=== PATIENT | female | born 1985 | race Caucasian/White ===

== ENCOUNTER 2016-07-14 12:20 | Emergency (ER) | payer OTHER ==
[~2016-07-14] VITALS: Ht 180.3 cm; Wt 190.0 kg
[~2016-07-14 12:20] MED LIST: CHOL100010 PO; HYDR-5688 PO; LEVO125T5 PO; LEVO150T9 PO; ONDA4TAB46 PO
[2016-07-14 12:26] VITALS: Ht 180.3 cm; Wt 190.0 kg
[2016-07-14 13:33] LABS: BASO % 0.1 %; BASO ABS # 0.01 K/uL (0-0.2); COMPLETE YES; EOS % 1.6 %; HEMATOCRIT 41.3 % (37-47); IG% 0.4 %; LYMPH % 26.7 %; LYMPH ABS # 1.83 K/uL (1.2-3.4); MEAN CELL VOLUME 85.3 fL (80-100); MEAN CORPUSCULAR HEMOGLOBIN 28.9 pg (25-34); MEAN CORPUSCULAR HGB CONC 33.9 g/dl (32-36); MEAN PLATELET VOLUME 9.8 fL (7.4-10.4); NEUT % 63.2 %; PLATELET COUNT 239 K/uL (130-400); RED BLOOD COUNT 4.84 M/uL (4.2-5.4); WHITE BLOOD COUNT 6.85 K/uL (4.8-10.8)
--- NOTE | 2016-07-14 13:35 | DIAGNOSTIC IMAGING REPORT ---
SINGLE VIEW CHEST CLINICAL HISTORY: Atypical chest pain. Chest heaviness. Dizziness. Headache. FINDINGS: An AP, portable, upright chest radiograph is compared to study dated 04/13/2016 and correlated with chest CT dated 04/14/2016. The examination is degraded by portable technique, large body habitus, and patient rotation. The cardiomediastinal silhouette is unremarkable. The lungs and pleural spaces are clear. No pneumothorax is seen. The bony thorax is grossly intact. IMPRESSION: No active disease in the chest. Electronically signed by: Warren Pro M.D. 07/14/2016 1:34 PM Dictated Date/Time: 07/14/2016 1:33 PM
[2016-07-14 13:42] LABS: PROTHROMBIN TIME (PATIENT) 10.4 SECONDS (9.0-12.0)
[2016-07-14 13:54] LABS: URINE APPEARANCE CLOUDY (CLEAR); URINE BILIRUBIN NEG (NEG); URINE COLOR DK YELLOW; URINE EPITHELIAL CELL AUTO >30 /lpf (0-5); URINE NITRITE POS (NEG); URINE PH 5.5 (4.5-7.5); URINE SPECIFIC GRAVITY 1.029 (1.000-1.030); UROBILINOGEN NEG (NEG); ZZUR CULT IF INDIC CLEAN CATCH YES
[2016-07-14 13:55] LABS: ALT/SGPT 22 U/L (12-78); BLOOD UREA NITROGEN 12 mg/dl (7-18); BUN/CREATININE RATIO 11.6 (10-20); CALCIUM 8.9 mg/dl (8.5-10.1); CARBON DIOXIDE 27 mmol/L (21-32); CHLORIDE 107 mmol/L (98-107); GLUCOSE 106 mg/dl (70-99); POTASSIUM 3.9 mmol/L (3.5-5.1); SODIUM 141 mmol/L (136-145)
[2016-07-14 14:05] LABS: ALB/GLOB RATIO 0.9 (0.9-2); ALKALINE PHOSPHATASE 82 U/L (45-117); AST/SGOT 15 U/L (15-37)
[2016-07-14 14:07] LABS: MANUAL MICROSCOPIC REQUIRED? NO; REVIEW REQ? NO
--- NOTE | 2016-07-14 14:07 | DIAGNOSTIC IMAGING REPORT ---
CT SCAN OF THE BRAIN WITHOUT IV CONTRAST CLINICAL HISTORY: Headache. Hypertension. COMPARISON STUDY: CT of the brain dated 02/01/2011. TECHNIQUE: Unenhanced axial CT scan of the brain is performed from the vertex to the skull base. Automated dose control exposure was utilized. CT DOSE: 906.34 mGycm FINDINGS: Brain parenchyma: The brain parenchyma is normal in appearance. There is no hemorrhage, mass effect, or evidence of acute territorial ischemia by CT criteria. Arteaga-white matter is preserved. No extra-axial fluid collection is seen. Ventricles, sulci, cisterns: Normal in configuration. Intracranial vasculature: The visualized intracranial vasculature at the skull base is normal in appearance. Calvarium: Unremarkable. Sinuses and mastoids: The visualized paranasal sinuses are clear. The mastoid air cells are well pneumatized. Orbits: The bony orbits are grossly intact. IMPRESSION: No acute intracranial abnormality. Electronically signed by: Warren Pro M.D. 07/14/2016 2:06 PM Dictated Date/Time: 07/14/2016 2:05 PM
[2016-07-14] MEDS ORDERED: KETOROLAC TROMETHAMINE 30 MG/ML VIAL IV STA (14:25)
[2016-07-14] MEDS ORDERED: LEVO150T PO (14:28)
[2016-07-14] MEDS ORDERED: LEVO300T2 PO (14:28)
[2016-07-14] MEDS ORDERED: NITR-5 PO (15:12)
--- NOTE | 2016-07-14 15:13 | EMERGENCY ROOM VISIT NOTE ---
History First contact with patient: 12:47 Chief Complaint: HYPERTENSION Stated Complaint: HYPERTENSION, CHEST HEAVY, MACIAS, DIZZY, JITTERY History of Present Illness The patient is a 31 year old female who presents to the Emergency Room with complaints of hypertension, headache and chest heaviness. The patient reports that she woke up this morning with a headache. She states that the headache is located in the left frontal region and is not the worst headache of her life. She does have a history of migraines but states this headache is not as severe as her migraines typically are. The patient states that approximately one hour later, she developed a nosebleed which lasted for approximately 1 minute. She states that her vision feels "off" and she feels jittery. She also reports some chest heaviness. She took her blood pressure at home and had readings of 135/115 and 150/115. The patient reports that she called her primary care provider due to the chest heaviness and they sent her here. The patient currently complains of a headache which she rates a 7/10. She did not take any medication at home for the pain. The patient has a history of migraines, Crohn' s, gastroparesis and a cholecystectomy. She denies any history of hypertension. She denies any chest pain, shortness of breath, neck pain, syncopal episodes or palpitations. She denies abdominal pain, nausea, vomiting or urinary symptoms. Review of Systems A complete 10-point Review of Systems was discussed with the patient, with pertinent positives and negatives listed in the History of Present Illness. All remaining Review of Systems questions can be considered negative unless otherwise specified. Past Medical/Surgical History Medical Problems: (1) Abdominal pain (2) Abdominal pain (3) Acute bronchitis (4) ASTHMA, UNSPECIFIED (5) Bronchitis (6) Constipation (7) Contusion of foot (8) Contusion of foot (9) Crohn's colitis (10) ESOPHAGEAL REFLUX (11) Exacerbation of Crohn's disease (12) Exacerbation of Crohn's disease (13) History of Crohn's disease (14) MIGRAINE UNSPECIFIED W/O INTRACT MGRN W/O STATUS MIGRAINOSUS (15) MORBID OBESITY (16) Small bowel obstruction (17) THYROID DYSFUNC-DELIVER (18) Vomiting Surgical Problems: (1) Hx of appendectomy (2) Hx of cholecystectomy (3) Hx of ileum resection Family History Cancer Diabetes mellitus FHx: seizures Heart disease Hypertension Social History Smoking Status: Never Smoker Alcohol Use: none Drug Use: none Marital Status: Housing Status: lives with family Occupation Status: unemployed Current/Historical Medications Scheduled Cholecalciferol (Vitamin D), 5,000 UNITS PO QAM Cyanocobalamin (Vitamin B-12 1000 Mcg), 1,000 MCG IM 2XWK Epinephrine (Epipen 2-Ruben), 1 INJ PRN UD Levothyroxine Sodium (Synthroid), 150 MCG PO 5XWK Levothyroxine Sodium (Synthroid), 300 MCG PO 2XWK Nitrofurantoin Monohyd Macrocr (Macrobid), 100 MG PO BID Scheduled PRN Dicyclomine Hcl (Dicyclomine Hcl), 20 MG PO BID PRN for abd pain Fluticasone Propionate (Fluticasone Propionate), 2 SPRAYS ALEJANDRA DAILY PRN for Allergies Symptoms Hydrocodone/Acetaminophen 5MG/325MG (Madison 5MG/325MG), 1 TABLET PO Q6 PRN for Pain Ondansetron Hcl (Zofran), 4 MG PO Q8 PRN for Nausea Allergies Coded Allergies: BEE STING (Verified Allergy, Intermediate, SWELLING AND SHORTNESS OF BREATH, 10/23/15) Shellfish (Verified Allergy, Intermediate, HIVES, ITCHING, SLIGH DIFFICULTY BREATHING, 10/23/15) SHRIMP AND CRAB White Fish (Verified Allergy, Intermediate, HIVES, ITCHING, SLIGHT DIFFICULTY BREATHING, 10/23/15) Fish Oil (Verified Allergy, Mild, HIVES, VOMITING, 10/23/15) Adalimumab (Verified Allergy, Unknown, SWELLING AT INJECTION SITE, 10/23/15) Humira Kit Infliximab (Verified Allergy, Unknown, migraines,itchiness, hair fallou, ) Physical Exam Vital Signs Date Time Temp Pulse Resp B/P Pulse Ox O2 Delivery O2 Flow Rate FiO2 07/14/16 15:53 36.6 85 23 131/91 96 07/14/16 15:52 85 23 131/91 96 Room Air 07/14/16 14:22 85 23 134/97 96 Room Air 07/14/16 13:48 82 07/14/16 13:44 82 147/82 07/14/16 12:26 36.6 98 18 180/127 94 Room Air Physical Exam VITALS: Vitals are noted on the nurse's note and reviewed by myself. Vital signs stable. GENERAL: This is a 31-year-old female, in no acute distress, nondiaphoretic, well-developed well-nourished. SKIN: The skin was without rashes. HEAD: Normocephalic atraumatic. EARS: External auditory canals clear, tympanic membranes pearly arteaga without erythema or effusion bilaterally. EYES: Pupils equal round and reactive to light and accommodation. Conjunctivae without injection, sclerae without icterus. Extraocular movements intact. MOUTH: Mucous membranes moist. Tonsils are not enlarged. Pharynx without erythema or exudate. NECK: Supple without nuchal rigidity. No lymphadenopathy. HEART: Regular rate and rhythm without murmurs gallops or rubs. LUNGS: Clear to auscultation bilaterally without wheezes, rales or rhonchi. ABDOMEN: Positive bowel sounds x 4. Soft, nontender to palpation. NEURO: Patient was alert and oriented to person place and time. Normal sensation to light and sharp touch. Medical Decision & Procedures ER Provider Diagnostic Interpretation: SINGLE VIEW CHEST FINDINGS: An AP, portable, upright chest radiograph is compared to study dated 04/13/2016 and correlated with chest CT dated 04/14/2016. The examination is degraded by portable technique, large body habitus, and patient rotation. The cardiomediastinal silhouette is unremarkable. The lungs and pleural spaces are clear. No pneumothorax is seen. The bony thorax is grossly intact. IMPRESSION: No active disease in the chest. CT SCAN OF THE BRAIN WITHOUT IV CONTRAST FINDINGS: Brain parenchyma: The brain parenchyma is normal in appearance. There is no hemorrhage, mass effect, or evidence of acute territorial ischemia by CT criteria. Arteaga-white matter is preserved. No extra-axial fluid collection is seen. Ventricles, sulci, cisterns: Normal in configuration. Intracranial vasculature: The visualized intracranial vasculature at the skull base is normal in appearance. Calvarium: Unremarkable. Sinuses and mastoids: The visualized paranasal sinuses are clear. The mastoid air cells are well pneumatized. Orbits: The bony orbits are grossly intact. IMPRESSION: No acute intracranial abnormality. Laboratory Results 07/14/16 13:20 Red Blood Count 4.84, Mean Corpuscular Volume 85.3, Mean Corpuscular Hemoglobin 28.9, Mean Corpuscular Hemoglobin Concent 33.9, Mean Platelet Volume 9.8, Neutrophils (%) (Auto) 63.2, Lymphocytes (%) (Auto) 26.7, Monocytes (%) (Auto) 8.0, Eosinophils (%) (Auto) 1.6, Basophils (%) (Auto) 0.1, Neutrophils # (Auto) 4.32, Lymphocytes # (Auto) 1.83, Monocytes # (Auto) 0.55, Eosinophils # (Auto) 0.11, Basophils # (Auto) 0.01 07/14/16 13:20 Test 07/14/16 13:20 07/14/16 13:25 White Blood Count 6.85 K/uL (4.8-10.8) Red Blood Count 4.84 M/uL (4.2-5.4) Hemoglobin 14.0 g/dL (12.0-16.0) Hematocrit 41.3 % (37-47) Mean Corpuscular Volume 85.3 fL (80-100) Mean Corpuscular Hemoglobin 28.9 pg (25-34) Mean Corpuscular Hemoglobin Concent 33.9 g/dl (32-36) Platelet Count 239 K/uL (130-400) Mean Platelet Volume 9.8 fL (7.4-10.4) Neutrophils (%) (Auto) 63.2 % Lymphocytes (%) (Auto) 26.7 % Monocytes (%) (Auto) 8.0 % Eosinophils (%) (Auto) 1.6 % Basophils (%) (Auto) 0.1 % Neutrophils # (Auto) 4.32 K/uL (1.4-6.5) Lymphocytes # (Auto) 1.83 K/uL (1.2-3.4) Monocytes # (Auto) 0.55 K/uL (0.11-0.59) Eosinophils # (Auto) 0.11 K/uL (0-0.5) Basophils # (Auto) 0.01 K/uL (0-0.2) RDW Standard Deviation 40.7 fL (36.4-46.3) RDW Coefficient of Variation 13.2 % (11.5-14.5) Immature Granulocyte % (Auto) 0.4 % Immature Granulocyte # (Auto) 0.03 K/uL (0.00-0.02) Prothrombin Time 10.4 SECONDS (9.0-12.0) Prothromb Time International Ratio 1.0 (0.9-1.1) Activated Partial Thromboplast Time 25.9 SECONDS (21.0-31.0) Partial Thromboplastin Ratio 1.0 Anion Gap 7.0 mmol/L (3-11) Est Creatinine Clear Calc Drug Dose 149.6 ml/min Estimated GFR () 85.7 Estimated GFR (Non- 74.0 BUN/Creatinine Ratio 11.6 (10-20) Calcium Level 8.9 mg/dl (8.5-10.1) Total Bilirubin 0.4 mg/dl (0.2-1) Aspartate Amino Transf (AST/SGOT) 15 U/L (15-37) Alanine Aminotransferase (ALT/SGPT) 22 U/L (12-78) Alkaline Phosphatase 82 U/L (45-117) Troponin I < 0.015 ng/ml (0-0.045) Total Protein 7.0 gm/dl (6.4-8.2) Albumin 3.4 gm/dl (3.4-5.0) Globulin 3.6 gm/dl (2.5-4.0) Albumin/Globulin Ratio 0.9 (0.9-2) Thyroid Stimulating Hormone (TSH) 10.100 uIu/ml (0.300-4.500) Urine Color DK YELLOW Urine Appearance CLOUDY (CLEAR) Urine pH 5.5 (4.5-7.5) Urine Specific Rogers 1.029 (1.000-1.030) Urine Protein TRACE (NEG) Urine Glucose (UA) NEG (NEG) Urine Ketones TRACE (NEG) Urine Occult Blood NEG (NEG) Urine Nitrite POS (NEG) Urine Bilirubin NEG (NEG) Urine Urobilinogen NEG (NEG) Urine Leukocyte Esterase MODERATE (NEG) Urine WBC (Auto) >30 /hpf (0-5) Urine RBC (Auto) 10-30 /hpf (0-4) Urine Hyaline Casts (Auto) 10-30 /lpf (0-5) Urine Epithelial Cells (Auto) >30 /lpf (0-5) Urine Bacteria (Auto) 4+ (NEG) Urine Test NEG (NEG) Medications Administered Medications (Trade) Dose Ordered Sig/Jarek Route Start Time Stop Time Status Last Admin Dose Admin Ketorolac Tromethamine (Toradol Inj) 30 mg NOW STAT IV 07/14/16 14:25 07/14/16 14:27 DC 07/14/16 14:45 30 MG ECG Indication: other Rate (beats per minute): 87 Rhythm: normal sinus Findings: no acute ischemic change, no ectopy Change: no significant change Medical Decision Differential diagnosis includes hypertensive urgency, hypertensive emergency, malignant hypertension, among others. The patient was evaluated as above. Labs were drawn and IV access was obtained. Imaging studies were performed and read by radiology as above. The patient was medicated with 30 mg Toradol IV for her headache. The patient was reassessed multiple times during their stay in the emergency department and remained in stable condition. The patient is a 31-year-old female who presents today for evaluation of hypertension. The patient does complain of a headache which is not the worst headache of her life. Labs revealed no leukocytosis, anemia or concerning electrolyte abnormalities. Troponin was not elevated. TSH was found to be moderately elevated. The patient has a history of hypothyroidism he was instructed to follow-up with her primary care provider for possible adjustment of her levothyroxine. CT of the head was unremarkable. Chest x-ray was unremarkable. EKG showed a normal sinus rhythm without evidence of ischemia or ectopy. The patient's hypertension resolved during her stay without any antihypertensive medications. I feel her hypertension may have been secondary to anxiety or pain. I did recommend that she follow-up closely with her primary care provider for close recheck of her blood pressure. Urinalysis was suggestive of infection, with 4+ bacteria, white blood cells, nitrites and leukocyte esterase. The patient denies significant urinary symptoms but does state that she has had multiple urinary tract infections in the past. Patient has had a previous urine culture which grew out pansensitive Escherichia coli. Urine was negative. The patient will be placed on Macrobid pending the urine culture results. She was instructed to return to the emergency department with any worsening of her current condition or new/ concerning symptoms. Based on the patient's presentation, lab results, and imaging studies, I feel the patient is stable for outpatient treatment. The patient's case was reviewed with Dr. Camp, ED attending physician, who agreed with my assessment and treatment plan. Discharge instructions were reviewed with the patient. The patient verbalized understanding of my assessment and treatment plan and was discharged home in good condition. Impression Primary Impression: Urinary tract infection Departure Information Dispostion Home / Self-Care Condition GOOD Prescriptions Nitrofurantoin Monohyd Macrocr (Macrobid) 100 Mg Cap 100 MG PO BID for 5 Days, #10 CAP Prov: Amanda Guajardo ., DESTINY 07/14/16 Referrals Lito Arroyo D.O.[facility]. (PCP) Patient Instructions My [facility] Additional Instructions You were evaluated today for headache and hypertension. Your blood pressure is now in a normal level, but you'll need to have this reevaluated by your primary care provider. You should also has your thyroid level rechecked, as your TSH was elevated today. Your urine did show evidence of infection. You were prescribed Macrobid to be taken twice daily for 5 days. This is an antibiotic. All antibiotics have the potential to cause diarrhea. Stop this medication and contact a medical provider if you were to develop any significant adverse side effects including: wheezing, shortness of breath, passing out, vomiting, or a diffuse rash. Always take antibiotics as directed and COMPLETE the ENTIRE course regardless of the improvement of your symptoms. For pain control, you can use the following [id number] medicines (if >12 yo): - Regular strength (325mg/tab) Tylenol (acetaminophen) 2 tabs every 4-6 hours as needed. Do not exceed 12 tablets in a 24 hour period. Avoid taking more than 4 grams (4000 mg) of Tylenol per day. This includes any other sources of acetaminophen you may take on a regular basis. - Regular strength (200 mg/tab) Advil (ibuprofen) 1-2 tabs every 4-6 hours as needed. Do not exceed a dose of 3200 mg per day. Rest and drink plenty of fluids. Return to the emergency room with worsening headache, fevers, neck pain, chest pain or any other new/concerning symptoms.
[2016-07-14 15:53] VITALS: BP 131/91; PULSE 85; TEMP 36.6; O2SAT 96
[2016-12-01] MEDS ORDERED: DICY20TA10 PO (10:07)
[2016-12-01] MEDS ORDERED: CYAN10004 PO (11:35)
== END 2016-07-14 15:54 | disposition home or self-care (01) ==
LOC: C.EDB 12:22
DX: N39.0 Urinary tract infection, site not specified (principal); E03.9 Hypothyroidism, unspecified; J45.909 Unspecified asthma, uncomplicated; K50.90 Crohn's disease, unspecified, without complications; K21.9 Gastro-esophageal reflux disease without esophagitis; G43.909 Migraine, unspecified, not intractable, without status migrainosus; E66.01 Morbid (severe) obesity due to excess calories; Z80.9 Family history of malignant neoplasm, unspecified; Z83.3 Family history of diabetes mellitus; Z82.49 Family history of ischemic heart disease and other diseases of the circulatory system; Z79.899 Other long term (current) drug therapy

== ENCOUNTER 2016-07-26 13:34 | Emergency (ER) | payer OTHER ==
[~2016-07-26] VITALS: Ht 180.3 cm; Wt 168.1 kg
[~2016-07-26 13:34] MED LIST changes: -CHOL100010 PO; -LEVO125T5 PO; +LEVO150T PO; -LEVO150T9 PO; +LEVO300T2 PO
[2016-07-26 13:40] VITALS: TEMP 36.8; Ht 180.3 cm; Wt 168.1 kg
[2016-07-26] MEDS ORDERED: ONDANSETRON INJ 2 MG/ML 2 ML VIAL IV STA (14:09)
[2016-07-26] MEDS ORDERED: HYDROmorphone INJ 1 MG/ML SYR IV STA (14:09)
[2016-07-26] MEDS ORDERED: SODIUM CHLORIDE 0.9% 1000ML 1,000 ML IV STA (14:09)
[2016-07-26 14:18] LABS: BASO % 0.3 %; BASO ABS # 0.03 K/uL (0-0.2); COMPLETE YES; EOS % 2.3 %; HEMATOCRIT 43.5 % (37-47); IG% 0.3 %; LYMPH % 32.6 %; LYMPH ABS # 2.86 K/uL (1.2-3.4); MEAN CELL VOLUME 84.1 fL (80-100); MEAN CORPUSCULAR HEMOGLOBIN 29.2 pg (25-34); MEAN CORPUSCULAR HGB CONC 34.7 g/dl (32-36); MEAN PLATELET VOLUME 9.6 fL (7.4-10.4); MONO % 7.6 %; NEUT % 56.9 %; PLATELET COUNT 287 K/uL (130-400); RED BLOOD COUNT 5.17 M/uL (4.2-5.4); WHITE BLOOD COUNT 8.78 K/uL (4.8-10.8)
[2016-07-26 14:32] LABS: BUN/CREATININE RATIO 11.9 (10-20); CALCIUM 8.6 mg/dl (8.5-10.1); POTASSIUM 3.7 mmol/L (3.5-5.1)
[2016-07-26 14:33] LABS: URINE APPEARANCE TURBID (CLEAR); URINE COLOR DK YELLOW; URINE EPITHELIAL CELL AUTO >30 /lpf (0-5); URINE NITRITE POS (NEG); URINE PH 5.5 (4.5-7.5); URINE SPECIFIC GRAVITY 1.026 (1.000-1.030); UROBILINOGEN NEG (NEG); ZZUR CULT IF INDIC CLEAN CATCH YES
[2016-07-26 14:35] LABS: ALB/GLOB RATIO 0.9 (0.9-2)
[2016-07-26 14:40] LABS: MANUAL MICROSCOPIC REQUIRED? NO; REVIEW REQ? YES
[2016-07-26] MEDS ORDERED: OPTIRAY 320 IV PRN (14:45)
[2016-07-26 14:49] LABS: URINE BILIRUBIN NEG (NEG)
--- NOTE | 2016-07-26 15:09 | DIAGNOSTIC IMAGING REPORT ---
CT SCAN OF THE ABDOMEN AND PELVIS WITH IV CONTRAST CLINICAL HISTORY: Right lower quadrant abdominal pain. Reported history of Crohn's disease. COMPARISON STUDY: Abdominal CT dated 12/31/2014. TECHNIQUE: Following the IV administration of 94 cc of Optiray 320, CT scan of the abdomen and pelvis is performed from the lung bases to the proximal femora. Images are reviewed in the axial, sagittal, and coronal planes. IV contrast was administered without complication. Automated dose control exposure was utilized. The examination is degraded by large body habitus, and by streak artifact from the body wall abutting the CT gantry. CT DOSE: 1870.88 mGy.cm FINDINGS: Lung bases: The heart is normal in size and without pericardial effusion. The lung bases are clear. Liver: The contrast-enhanced liver is enlarged, measuring 22.7 cm in length. The liver demonstrates diffusely diminutive attenuation consistent with hepatic steatosis. There is no intrahepatic biliary ductal dilatation. The hepatic veins and portal veins are patent. Gallbladder: Surgically absent noting clips in the gallbladder fossa. Spleen: The spleen is enlarged, measuring 15.1 cm in length. Pancreas: Unremarkable. Adrenal glands: Unremarkable. Kidneys: The contrast enhanced kidneys are normal in size and without hydronephrosis. The kidneys enhance symmetrically. Abdominal vasculature: The abdominal aorta is normal in course and caliber. Bowel: The small bowel and colon are normal in course and caliber. No thick walled or hyperemic bowel loops are identified. The appendix is surgically absent. Peritoneum: There is no intraperitoneal free air or abdominal ascites. There is a small fat-containing umbilical hernia. Lymphadenopathy: None. Pelvic viscera: The bladder, uterus, and adnexa are normal as visualized. Ovarian follicles are seen bilaterally. Skeletal structures: No lytic or blastic lesions are seen. Mild sclerotic change is noted in the sacroiliac joints. IMPRESSION: 1. There are no acute infectious or inflammatory findings in the abdomen or pelvis. 2. Hepatomegaly and severe hepatic steatosis. 3. Splenomegaly. Electronically signed by: Warren Pro M.D. 07/26/2016 3:07 PM Dictated Date/Time: 07/26/2016 3:02 PM
[2016-07-26] MEDS ORDERED: CEFTRIAXONE SOD INJ 1 GM ADDVIAL IV STA (15:22)
[2016-07-26] MEDS ORDERED: PROMETHAZINE HCL INJ 25 MG in SODIUM CHLORIDE 0.9% 50ML 50 ML IV STA (15:24)
[2016-07-26] MEDS ORDERED: OMEP40CA41 PO (16:33)
[2016-07-26] MEDS ORDERED: SULF800T23 PO (16:33)
[2016-07-26] MEDS ORDERED: ONDA4TAB10 SL (16:33)
--- NOTE | 2016-07-26 16:34 | EMERGENCY ROOM VISIT NOTE ---
History First contact with patient: 13:51 Chief Complaint: GI ASSESSMENT Stated Complaint: GI ASSESSMENT-SENT BY 'S OFFICE, ABD. PAIN, V,N Nursing Triage Summary: Triage note: pt reports for the past days diarrhea, nausea, vomitting, unable to eat and right lower abd pain. pt reports hx of chrohns and gastoparesis. pt reports "i had one episode of consipation earlier but i am still having the diarrhea too." History of Present Illness The patient is a 31 year old female who presents to the Emergency Room with complaints of abdominal pain and vomiting for the past 5 days. The patient states that she has had abdominal pain on and off for "a long time." She states that the pain has worsened over the past 5 days and is located in her right lower abdomen. She also reports she has had nausea and vomiting for the past 5 days. Her pain has been constant and she rates the discomfort an 8/10. She states she has had increased belching and decreased appetite. She has a history of gastroparesis and Crohn's. She has a history of bowel obstructions. She reports she has some rectal pain and bleeding with wiping, but she does currently have her menstrual period. She does not follow with a clothing sales assistant locally, but has seen one in [place] last year. She states she has had increased frequency of her bowel movements lately, alternating diarrhea and constipation. She denies any fevers/chills, chest pain , shortness of breath, urinary symptoms or abnormal vaginal discharge. Review of Systems A complete 10-point Review of Systems was discussed with the patient, with pertinent positives and negatives listed in the History of Present Illness. All remaining Review of Systems questions can be considered negative unless otherwise specified. Past Medical/Surgical History Medical Problems: (1) Abdominal pain (2) Abdominal pain (3) Acute bronchitis (4) ASTHMA, UNSPECIFIED (5) Bronchitis (6) Constipation (7) Contusion of foot (8) Contusion of foot (9) Crohn's colitis (10) ESOPHAGEAL REFLUX (11) Exacerbation of Crohn's disease (12) Exacerbation of Crohn's disease (13) History of Crohn's disease (14) MIGRAINE UNSPECIFIED W/O INTRACT MGRN W/O STATUS MIGRAINOSUS (15) MORBID OBESITY (16) Small bowel obstruction (17) THYROID DYSFUNC-DELIVER (18) Vomiting Surgical Problems: (1) Hx of appendectomy (2) Hx of cholecystectomy (3) Hx of ileum resection Family History Cancer Diabetes mellitus FHx: seizures Heart disease Hypertension Social History Smoking Status: Never Smoker Alcohol Use: none Drug Use: none Marital Status: Housing Status: lives with family Occupation Status: unemployed Current/Historical Medications Scheduled Cholecalciferol (Vitamin D), 5,000 UNITS PO QAM Cyanocobalamin (Vitamin B-12 1000 Mcg), 1,000 MCG IM 2XWK Epinephrine (Epipen 2-Ruben), 1 INJ PRN UD Levothyroxine Sodium (Synthroid), 150 MCG PO 5XWK Levothyroxine Sodium (Synthroid), 300 MCG PO 2XWK Omeprazole (Prilosec), 40 MG PO DAILY Ondasetron Odt (Zofran Odt), 4 MG SL Q6H Sulfa/Trimethoprim (Bactrim Ds 800MG/160MG), 1 TAB PO BID Scheduled PRN Dicyclomine Hcl (Dicyclomine Hcl), 20 MG PO BID PRN for abd pain Fluticasone Propionate (Fluticasone Propionate), 2 SPRAYS ALEJANDRA DAILY PRN for Allergies Symptoms Hydrocodone/Acetaminophen 5MG/325MG ([place] 5MG/325MG), 1 TABLET PO Q6 PRN for Pain Ondansetron Hcl (Zofran), 4 MG PO Q8 PRN for Nausea Allergies Coded Allergies: BEE STING (Verified Allergy, Intermediate, SWELLING AND SHORTNESS OF BREATH, 07/26/16) Shellfish (Verified Allergy, Intermediate, HIVES, ITCHING, SLIGH DIFFICULTY BREATHING, 07/26/16) SHRIMP AND CRAB White Fish (Verified Allergy, Intermediate, HIVES, ITCHING, SLIGHT DIFFICULTY BREATHING, 07/26/16) Fish Oil (Verified Allergy, Mild, HIVES, VOMITING, 07/26/16) Adalimumab (Verified Allergy, Unknown, SWELLING AT INJECTION SITE, 07/26/16 ) Humira Kit Infliximab (Verified Allergy, Unknown, migraines,itchiness, hair fallou, ) Physical Exam Vital Signs Date Time Temp Pulse Resp B/P Pulse Ox O2 Delivery O2 Flow Rate FiO2 07/26/16 16:59 58 19 124/62 94 07/26/16 15:39 89 21 126/78 95 07/26/16 13:40 36.8 110 18 156/88 94 Room Air Physical Exam VITALS: Vitals are noted on the nurse's note and reviewed by myself. Vital signs stable. GENERAL: This is a 31-year-old female, in no acute distress, nondiaphoretic, well-developed well-nourished. SKIN: Capillary reflex less than 2 seconds. HEENT: Normocephalic. PERRLA. EOMI. Nares patent. Mucous membranes moist. Neck is supple without nuchal rigidity. HEART: Regular rate and rhythm without murmurs gallops or rubs. LUNGS: Clear to auscultation bilaterally without wheezes, rales or rhonchi. ABDOMEN: Positive bowel sounds x 4. Soft, with mild diffuse tenderness, most pronounced over the right lower quadrant. No guarding or rebound tenderness. RECTAL: No anal fissures noted. No hemorrhoids noted. The external anal tissue is erythematous and slightly inflamed. NEURO: Patient was alert and oriented to person place and time. Medical Decision & Procedures ER Provider Diagnostic Interpretation: CT SCAN OF THE ABDOMEN AND PELVIS WITH IV CONTRAST FINDINGS: Lung bases: The heart is normal in size and without pericardial effusion. The lung bases are clear. Liver: The contrast-enhanced liver is enlarged, measuring 22.7 cm in length. The liver demonstrates diffusely diminutive attenuation consistent with hepatic steatosis. There is no intrahepatic biliary ductal dilatation. The hepatic veins and portal veins are patent. Gallbladder: Surgically absent noting clips in the gallbladder fossa. Spleen: The spleen is enlarged, measuring 15.1 cm in length. Pancreas: Unremarkable. Adrenal glands: Unremarkable. Kidneys: The contrast enhanced kidneys are normal in size and without hydronephrosis. The kidneys enhance symmetrically. Abdominal vasculature: The abdominal aorta is normal in course and caliber. Bowel: The small bowel and colon are normal in course and caliber. No thick walled or hyperemic bowel loops are identified. The appendix is surgically absent. Peritoneum: There is no intraperitoneal free air or abdominal ascites. There is a small fat-containing umbilical hernia. Lymphadenopathy: None. Pelvic viscera: The bladder, uterus, and adnexa are normal as visualized. Ovarian follicles are seen bilaterally. Skeletal structures: No lytic or blastic lesions are seen. Mild sclerotic change is noted in the sacroiliac joints. IMPRESSION: 1. There are no acute infectious or inflammatory findings in the abdomen or pelvis. 2. Hepatomegaly and severe hepatic steatosis. 3. Splenomegaly. Laboratory Results 07/26/16 14:00 Red Blood Count 5.17, Mean Corpuscular Volume 84.1, Mean Corpuscular Hemoglobin 29.2, Mean Corpuscular Hemoglobin Concent 34.7, Mean Platelet Volume 9.6, Neutrophils (%) (Auto) 56.9, Lymphocytes (%) (Auto) 32.6, Monocytes (%) (Auto) 7.6, Eosinophils (%) (Auto) 2.3, Basophils (%) (Auto) 0.3, Neutrophils # (Auto) 4.99, Lymphocytes # (Auto) 2.86, Monocytes # (Auto) 0.67, Eosinophils # (Auto) 0.20, Basophils # (Auto) 0.03 07/26/16 14:00 Test 07/26/16 13:49 07/26/16 14:00 Urine Color DK YELLOW Urine Appearance TURBID (CLEAR) Urine pH 5.5 (4.5-7.5) Urine Specific [place] 1.026 (1.000-1.030) Urine Protein 1+ (NEG) Urine Glucose (UA) NEG (NEG) Urine Ketones TRACE (NEG) Urine Occult Blood 3+ (NEG) Urine Nitrite POS (NEG) Urine Bilirubin NEG (NEG) Urine Urobilinogen NEG (NEG) Urine Leukocyte Esterase MODERATE (NEG) Urine WBC (Auto) >30 /hpf (0-5) Urine RBC (Auto) >30 /hpf (0-4) Urine Hyaline Casts (Auto) 0 /lpf (0-5) Urine Epithelial Cells (Auto) >30 /lpf (0-5) Urine Bacteria (Auto) 3+ (NEG) Urine Pathogenic Casts 20-30 GRANULAR CASTS /lpf (0) Urine Test NEG (NEG) White Blood Count 8.78 K/uL (4.8-10.8) Red Blood Count 5.17 M/uL (4.2-5.4) Hemoglobin 15.1 g/dL (12.0-16.0) Hematocrit 43.5 % (37-47) Mean Corpuscular Volume 84.1 fL (80-100) Mean Corpuscular Hemoglobin 29.2 pg (25-34) Mean Corpuscular Hemoglobin Concent 34.7 g/dl (32-36) Platelet Count 287 K/uL (130-400) Mean Platelet Volume 9.6 fL (7.4-10.4) Neutrophils (%) (Auto) 56.9 % Lymphocytes (%) (Auto) 32.6 % Monocytes (%) (Auto) 7.6 % Eosinophils (%) (Auto) 2.3 % Basophils (%) (Auto) 0.3 % Neutrophils # (Auto) 4.99 K/uL (1.4-6.5) Lymphocytes # (Auto) 2.86 K/uL (1.2-3.4) Monocytes # (Auto) 0.67 K/uL (0.11-0.59) Eosinophils # (Auto) 0.20 K/uL (0-0.5) Basophils # (Auto) 0.03 K/uL (0-0.2) RDW Standard Deviation 39.5 fL (36.4-46.3) RDW Coefficient of Variation 13.1 % (11.5-14.5) Immature Granulocyte % (Auto) 0.3 % Immature Granulocyte # (Auto) 0.03 K/uL (0.00-0.02) Anion Gap 9.0 mmol/L (3-11) Est Creatinine Clear Calc Drug Dose 138.6 ml/min Estimated GFR () 85.7 Estimated GFR (Non- 74.0 BUN/Creatinine Ratio 11.9 (10-20) Calcium Level 8.6 mg/dl (8.5-10.1) Total Bilirubin 0.4 mg/dl (0.2-1) Aspartate Amino Transf (AST/SGOT) 14 U/L (15-37) Alanine Aminotransferase (ALT/SGPT) 23 U/L (12-78) Alkaline Phosphatase 94 U/L (45-117) Total Protein 7.7 gm/dl (6.4-8.2) Albumin 3.6 gm/dl (3.4-5.0) Globulin 4.1 gm/dl (2.5-4.0) Albumin/Globulin Ratio 0.9 (0.9-2) Lipase 165 U/L (73-393) Medications Administered Medications (Trade) Dose Ordered Sig/Jarek Route Start Time Stop Time Status Last Admin Dose Admin Sodium Chloride (Nss 1000ml) 1,000 ml @ 999 mls/hr Q1H1M STAT IV 07/26/16 14:09 07/26/16 15:09 DC 07/26/16 14:19 999 MLS/HR Hydromorphone HCl (Dilaudid Inj) 1 mg NOW STAT IV 07/26/16 14:09 07/26/16 14:11 DC 07/26/16 14:20 1 MG Ondansetron HCl (Zofran Inj) 4 mg NOW STAT IV 07/26/16 14:09 07/26/16 14:11 DC 07/26/16 14:20 4 MG Ceftriaxone Sodium 1 gm 1 gm NOW STAT IV 07/26/16 15:22 07/26/16 15:24 DC 07/26/16 15:49 1 GM Promethazine HCl/ Sodium Chloride (Phenergan Inj/ Nss 50ml) 51 ml @ 204 mls/hr NOW STAT IV 07/26/16 15:24 07/26/16 15:38 DC 07/26/16 15:48 204 MLS/HR ED Course The patient was evaluated as above. Labs were drawn and IV access was obtained. Patient was medicated with 1 L normal saline solution, 1 mg Dilaudid, and [address] of the abdomen and pelvis was performed and read by radiology as above. Patient was reevaluated and and had continued nausea. She was given 25 mg Phenergan IV. 1 g Rocephin was ordered for possible urinary tract infection. Discharge instructions were reviewed with the patient. The patient verbalized understanding of my assessment and treatment plan and was discharged home in good condition. Medical Decision Differential diagnosis includes Crohn's flareup, gastroparesis, abdominal access , fissure, UTI, gastroenteritis, colitis, among others. The patient is a 31-year-old female who presents today complaining of abdominal pain and nausea. Labs revealed no leukocytosis, anemia or concerning electrolyte abnormalities. LFTs and kidney functions were within normal limits. Urinalysis was suggestive of infection. The patient reports an adverse reaction to Macrobid and will be placed on Bactrim. She also likely has a degree of gastroparesis flareup. Her nausea was under control here and she was given a prescription of Zofran. She requested a prescription of a PPI and was given one for Prilosec. The patient has been noncompliant and has not followed up with gastroenterology as previously recommended. She was instructed that she will need to follow-up with them for further evaluation of her ongoing abdominal issues. The patient's case was reviewed with Dr. Bates, ED attending physician, who agreed with my assessment and treatment plan. Based on the patient's presentation and work up, I feel the patient is stable for outpatient treatment. The patient was educated to the emergency department for any worsening of their current condition or new/concerning symptoms. The patient will follow up with her primary care provider and gastroenterology.. Impression Primary Impression: UTI (urinary tract infection) Departure Information Dispostion Home / Self-Care Condition GOOD Prescriptions Omeprazole (PRILOSEC) 40 Mg Cap 40 MG PO DAILY for 14 Days, #14 CAP Prov: Amanda Guajardo PA-C 07/26/16 Ondasetron Odt (ZOFRAN ODT) 4 Mg Tab 4 MG SL Q6H for Nausea, #20 TAB Prov: Amanda Guajardo PA-C 07/26/16 Sulfa/Trimethoprim (Bactrim Ds 800MG/160MG) Tab 1 TAB PO BID for 7 Days, #14 TAB Prov: Amanda Guajardo PA-C 07/26/16 Referrals Lito Arroyo D.Prem.[facility].Med. (PCP) Patient Instructions [facility] Additional Instructions You were prescribed Bactrim to be taken twice daily as prescribed. This is an antibiotic. All antibiotics have the potential to cause diarrhea. Stop this medication and contact a medical provider if you were to develop any significant adverse side effects including: wheezing, shortness of breath, passing out, vomiting, or a diffuse rash. Always take antibiotics as directed and COMPLETE the ENTIRE course regardless of the improvement of your symptoms. You have been prescribed Zofran to be used for any nausea or vomiting. Take as prescribed. Follow-up with her primary care provider within one week. Return to the emergency department with any worsening or new/concerning symptoms.
[2016-07-26 16:59] VITALS: BP 124/62; PULSE 58; O2SAT 94
--- NOTE | 2016-07-28 12:29 | Pharmacy Progress Note ---
ED Pharmacist Culture FollowUp Date of Service: Jul 28, 2016. Patient was sent home with a prescription for Bactrim, which should cover the E. coli growing from the patient's urine culture.
[2016-12-01] MEDS ORDERED: DICY20TA10 PO (10:07)
[2016-12-01] MEDS ORDERED: CYAN10004 PO (11:35)
== END 2016-07-26 17:00 | disposition home or self-care (01) ==
LOC: C.EDB 13:35 → C.EDC 17:00
DX: N39.0 Urinary tract infection, site not specified (principal); J45.909 Unspecified asthma, uncomplicated; K21.9 Gastro-esophageal reflux disease without esophagitis; K31.84 Gastroparesis; E66.01 Morbid (severe) obesity due to excess calories; Z68.43 Body mass index [BMI] 50.0-59.9, adult; K50.90 Crohn's disease, unspecified, without complications; Z90.49 Acquired absence of other specified parts of digestive tract; Z80.9 Family history of malignant neoplasm, unspecified; Z83.3 Family history of diabetes mellitus; Z82.0 Family history of epilepsy and other diseases of the nervous system; Z82.49 Family history of ischemic heart disease and other diseases of the circulatory system; Z79.899 Other long term (current) drug therapy

== ENCOUNTER 2016-12-01 14:23 | Emergency (ER) | payer OTHER ==
[~2016-12-01] VITALS: Ht 180.3 cm; Wt 190.0 kg
[~2016-12-01 14:23] MED LIST changes: +CYAN10004 PO; +DICY20TA10 PO; +ONDA4TAB10 SL
[2016-12-01 14:26] VITALS: TEMP 36.6; Ht 180.3 cm; Wt 190.0 kg
[2016-12-01] MEDS ORDERED: CHOL1TAB42 PO (14:27)
--- NOTE | 2016-12-01 15:12 | DIAGNOSTIC IMAGING REPORT ---
LEFT FINGER(S) MIN 2 VIEWS ROUTINE CLINICAL HISTORY: left index finger pain pain COMPARISON: None. DISCUSSION: Lucency of the middle phalanx measuring 7 x 4 mm. This suggestive of a bone cyst versus enchondroma. All remaining osseous structures are unremarkable. No evidence of fracture or dislocation. There is no evidence for soft tissue swelling. IMPRESSION: Well-defined lucency mid middle phalangeal shaft. This suggestive of benign enchondroma versus bone cyst. No additional abnormalities appreciated The above report was generated using voice recognition software. It may contain grammatical, syntax or spelling errors. Electronically signed by: Ren Tracy M.D. 12/01/2016 3:10 PM Dictated Date/Time: 12/01/2016 3:09 PM
[2016-12-01] MEDS ORDERED: LEVO150T9 PO ×2 (15:23)
--- NOTE | 2016-12-01 15:35 | EMERGENCY ROOM VISIT NOTE ---
ED Visit Note First contact with patient: 14:32 CHIEF COMPLAINT: Finger injury HISTORY OF PRESENT ILLNESS: This 31-year-old female patient presents to the emergency department ambulatory complaining of pain in the the left second finger. The patient states she had a bone cyst removed from the finger in 2009. She states that this pain feels the same. There was no specific injury. The patient rates the pain as sharp and 6.5/10. The patient is not to straighten or flex the finger well and it is painful. No numbness or tingling. No lacerations. No other injuries. The patient also mentioned that she has had ongoing left arm pain and swelling. She has been seen for this in the past. She states she also has a small red area which she thinks is an insect bite. The patient stated she did not come here for those complaints. She declined any further evaluation for the left arm pain and swelling. REVIEW OF SYSTEMS: A 6 system review of systems was completed with positives and pertinent negatives in the HPI. ALLERGIES: See nursing notes MEDICATIONS: See nursing notes PMH: Crohn's disease, fibromyalgia, hypothyroidism SOCIAL HISTORY: The patient lives locally. She does not smoke PHYSICAL EXAM: Vital Signs: Reviewed Nurse's notes, vital signs stable. GENERAL : This is a 31-year-old female, in no acute distress, but appears to be in pain , well-developed, well-nourished. MUSCULOSKELETAL: There is no deformity of the left second finger. There is a small firm palpable anomaly at the middle phalanx of the second finger. The patient is not to extend or flex it well because of the pain. The PIP joint is maximally tender and extension and flexion is intact but painful. The MCP joint is nontender. There is no obvious ligamentous instability. There is no laceration. Capillary refill less than 2 seconds. No tenderness of the remaining fingers or hand. Full range of motion of the wrist. NEURO: Alert and oriented to person, place, and time. Normal sensation to light and sharp touch. EMERGENCY DEPARTMENT COURSE: I examined the patient. An x-ray of the left second finger was reviewed by myself and radiology and showed probable bone cyst. The finger was immobiziled by emergency department radiochemical technician under my direction and the position was satisfactory. Neurovascular status rechecked and intact. She should try [id number] pain medication. She should contact orthopedics for a follow-up appointment. The patient was discharged home in good condition. [~ rep ct add3]] LEFT FINGER(S) MIN 2 VIEWS ROUTINE CLINICAL HISTORY: left index finger pain pain COMPARISON: None. DISCUSSION: Lucency of the middle phalanx measuring 7 x 4 mm. This suggestive of a bone cyst versus enchondroma. All remaining osseous structures are unremarkable. No evidence of fracture or dislocation. There is no evidence for soft tissue swelling. IMPRESSION: Well-defined lucency mid middle phalangeal shaft. This suggestive of benign enchondroma versus bone cyst. No additional abnormalities appreciated Problem List Medical Problems: (1) Abdominal pain Status: Resolved (2) Abdominal pain Status: Resolved (3) Acute bronchitis Status: Resolved (4) ASTHMA, UNSPECIFIED Status: Chronic (5) Bronchitis Status: Resolved (6) Constipation Status: Resolved (7) Contusion of foot Status: Resolved (8) Contusion of foot Status: Resolved (9) Crohn's colitis Status: Chronic (10) ESOPHAGEAL REFLUX Status: Chronic (11) Exacerbation of Crohn's disease Status: Resolved (12) Exacerbation of Crohn's disease Status: Resolved (13) History of Crohn's disease Status: Chronic (14) MIGRAINE UNSPECIFIED W/O INTRACT MGRN W/O STATUS MIGRAINOSUS Status: Chronic (15) MORBID OBESITY Status: Chronic (16) Small bowel obstruction Status: Resolved (17) THYROID DYSFUNC-DELIVER Status: Chronic (18) Vomiting Status: Resolved Surgical Problems: (1) Hx of appendectomy Status: Resolved (2) Hx of cholecystectomy Status: Resolved (3) Hx of ileum resection Status: Resolved Current/Historical Medications Scheduled Cholecalciferol (Vitamin D), 5,000 INTER.UNIT PO QAM Cyanocobalamin (Vitamin B-12 1000 Mcg), 1,000 MCG PO 2XWK Levothyroxine Sodium (Levothyroxine Sodium), 150 MCG PO 5XWK Levothyroxine Sodium (Levothyroxine Sodium), 300 MG PO 2XWK Scheduled PRN Dicyclomine Hcl (Dicyclomine Hcl), 20 MG PO BID PRN for Abdominal Pain/Cramping Epinephrine (Epipen 2-Ruben), 0.3 MG IM UD PRN for ALLERGIC REACTION Fluticasone Propionate (Fluticasone Propionate), 2 SPRAYS ALEJANDRA DAILY PRN for Allergies Symptoms Allergies Coded Allergies: BEE STING (Verified Allergy, Intermediate, SWELLING AND SHORTNESS OF BREATH, 07/26/16) Shellfish (Verified Allergy, Intermediate, HIVES, ITCHING, SLIGH DIFFICULTY BREATHING, 07/26/16) SHRIMP AND CRAB White Fish (Verified Allergy, Intermediate, HIVES, ITCHING, SLIGHT DIFFICULTY BREATHING, 07/26/16) Fish Oil (Verified Allergy, Mild, HIVES, VOMITING, 07/26/16) Adalimumab (Verified Allergy, Unknown, SWELLING AT INJECTION SITE, 07/26/16 ) Humira Kit Infliximab (Verified Allergy, Unknown, migraines,itchiness, hair fallou, ) Vital Signs Date Time Temp Pulse Resp B/P (MAP) Pulse Ox O2 Delivery O2 Flow Rate FiO2 12/01/16 16:02 84 18 153/113 97 12/01/16 14:26 36.6 87 18 147/101 97 Room Air Departure Information Impression Primary Impression: Bone cyst Dispostion Home / Self-Care Condition GOOD Referrals No Doctor, Assigned (PCP) Prince Montes MD Patient Instructions ED Cyst Bone, [facility] Additional Instructions Wear the splint when up and about Tylenol according to package instructions for discomfort Contact orthopedics to schedule a follow-up appointment for further evaluation and management Return with worsening symptoms
[2016-12-01 16:02] VITALS: BP 153/113; PULSE 84; O2SAT 97
[2016-12-01] MEDS ORDERED: FLNIN/ NAE (20:27)
[2016-12-01] MEDS ORDERED: EPP3/2 IM (23:15)
== END 2016-12-01 16:02 | disposition home or self-care (01) ==
LOC: C.EDB 14:24 → C.EDD 16:02
DX: M85.442 Solitary bone cyst, left hand (principal); K50.90 Crohn's disease, unspecified, without complications; M79.7 Fibromyalgia; E03.9 Hypothyroidism, unspecified; J45.909 Unspecified asthma, uncomplicated; K21.9 Gastro-esophageal reflux disease without esophagitis; G43.909 Migraine, unspecified, not intractable, without status migrainosus; E66.01 Morbid (severe) obesity due to excess calories; Z79.899 Other long term (current) drug therapy

== ENCOUNTER → 2016-12-15 | Outpatient (CLI) | payer OTHER ==
[~2016-12-15] MED LIST changes: +CEPH-571 PO; +CHOL1TAB42 PO; +DICY20TA35 PO; +EPP3/2 IM; +FLNIN/ NAE; -HYDR-5688 PO; -LEVO150T PO; +LEVO150T9 PO; -LEVO300T2 PO; +LIFI5DRO OPB; +LISI5TAB PO; -ONDA4TAB10 SL; -ONDA4TAB46 PO; +PROM25TA16 PO; +TRAM-10 PO; +ZFRODT4HP PO
== END | disposition home or self-care (01) ==
LOC: C.RDSM 13:07
PROVIDERS: ATTEND Orthopaedic Surgery
DX: R22.30 Localized swelling, mass and lump, unspecified upper limb (principal)

== ENCOUNTER 2017-01-25 13:46 | Emergency (ER) | payer OTHER ==
[~2017-01-25] VITALS: Ht 180.3 cm; Wt 190.0 kg
[~2017-01-25 13:46] MED LIST changes: -CEPH-571 PO; -DICY20TA35 PO; -LIFI5DRO OPB; -LISI5TAB PO; -PROM25TA16 PO; -TRAM-10 PO; -ZFRODT4HP PO
[2017-01-25 13:52] VITALS: Ht 180.3 cm; Wt 190.0 kg
[2017-01-25] MEDS ORDERED: SODIUM CHLORIDE 0.9% 1000ML 1,000 ML IV STA (14:17)
[2017-01-25] MEDS ORDERED: METOCLOPRAMIDE HCL INJ 20 MG in SODIUM CHLORIDE 0.9% 50ML 50 ML IV STA (14:17)
[2017-01-25] MEDS ORDERED: MoRPHine SULFATE 10 MG/ML CARP/VIAL IV STA (14:17)
[2017-01-25] MEDS ORDERED: OPTIRAY 320 IV PRN (14:30)
--- NOTE | 2017-01-25 14:41 | DIAGNOSTIC IMAGING REPORT ---
CHEST ONE VIEW PORTABLE HISTORY: Generalized abdominal pain. COMPARISON: Chest 07/14/2016. FINDINGS: The lungs are clear. Cardiac silhouette is normal in size. No pleural effusions. No pneumothorax. IMPRESSION: No acute process. Electronically signed by: Jonatan Orlando M.D. 01/25/2017 2:40 PM Dictated Date/Time: 01/25/2017 2:38 PM
[2017-01-25 15:20] LABS: BASO % 0.1 %; BASO ABS # 0.01 K/uL (0-0.2); COMPLETE YES; EOS % 2.2 %; HEMATOCRIT 44.3 % (37-47); IG% 0.3 %; LYMPH % 34.6 %; LYMPH ABS # 2.47 K/uL (1.2-3.4); MEAN CORPUSCULAR HEMOGLOBIN 28.3 pg (25-34); MEAN CORPUSCULAR HGB CONC 32.5 g/dl (32-36); MEAN PLATELET VOLUME 9.7 fL (7.4-10.4); MONO % 7.9 %; NEUT % 54.9 %; PLATELET COUNT 268 K/uL (130-400); RED BLOOD COUNT 5.09 M/uL (4.2-5.4); WHITE BLOOD COUNT 7.13 K/uL (4.8-10.8)
[2017-01-25 15:21] LABS: MANUAL MICROSCOPIC REQUIRED? YES; URINE APPEARANCE CLEAR (CLEAR); URINE BILIRUBIN NEG (NEG); URINE COLOR YELLOW; URINE NITRITE NEG (NEG); UROBILINOGEN NEG (NEG)
[2017-01-25 15:26] LABS: REVIEW REQ? NO
[2017-01-25 15:29] LABS: URINE BACTERIA 4+ (NEG)
[2017-01-25 15:30] LABS: ZZUR CULT IF INDIC CLEAN CATCH YES
[2017-01-25 15:32] LABS: ISTAT CREATININE 1.1 mg/dl (0.6-1.3); ISTAT HEMOGLOBIN 14.3 g/dl (12.0-16.0); ISTAT IONIZED CALCIUM 1.21 mmol/l (1.12-1.32)
[2017-01-25] MEDS ORDERED: CEFTRIAXONE SOD INJ 1 GM ADDVIAL IV STA (15:38)
[2017-01-25 15:41] LABS: ALKALINE PHOSPHATASE 102 U/L (45-117); ALT/SGPT 25 U/L (12-78); AST/SGOT 18 U/L (15-37)
[2017-01-25] MEDS ORDERED: ZFRODT4HP PO (15:46)
[2017-01-25] MEDS ORDERED: LIFI5DRO OPB (15:46)
[2017-01-25] MEDS ORDERED: PROM25TA16 PO (15:46)
--- NOTE | 2017-01-25 15:52 | DIAGNOSTIC IMAGING REPORT ---
CT ABD/PELVIS IV CONTRAST ONLY CLINICAL HISTORY: Crohn's, nausea, vomiting, diarrhea. History of gastroparesis. ABDOMINAL PAIN COMPARISON STUDY: 07/26/2016 TECHNIQUE: Following the IV administration of 120 mL of Optiray-320, CT scan of the abdomen and pelvis was performed from the lung bases to the proximal femurs. Images are reviewed in the axial, sagittal, and coronal planes. IV contrast was administered without complication. A dose lowering technique was utilized adhering to the principles of ALARA. CT DOSE: 2264.47 mGy.cm FINDINGS: Lower chest: The heart is normal in size and configuration, without pericardial effusion. The lung bases and pleural spaces are clear. Liver: There is mild hepatic steatosis. The liver is borderline enlarged. No focal masses are visualized. Gallbladder: Surgically absent Spleen: The spleen is enlarged measuring 15 cm Pancreas: Unremarkable. Adrenal glands: Unremarkable. Kidneys: There is symmetric renal cortical enhancement. The kidneys are normal in size without hydronephrosis. Bowel: There are postsurgical changes are prior appendectomy. There is no acute diverticulitis. There are several borderline enlargement jejunal loops, but there are no transition zones indicate a high-grade bowel obstruction. Peritoneum: There is no intraperitoneal free air or abdominal ascites. Vasculature: The abdominal aorta is normal in course and caliber. Adenopathy: None. Pelvic viscera: The bladder, and pelvic viscera are unremarkable. Skeletal structures: No destructive osseous lesions are seen. IMPRESSION: 1. Surgically absent gallbladder and appendix 2. Hepatic steatosis. Stable hepatosplenomegaly. 3. Borderline dilated jejunal loops, but no current evidence of significant bowel obstruction. 4. No evidence of free air 5. No acute inflammatory changes Electronically signed by: Jose Carlos Day M.D. 01/25/2017 3:51 PM Dictated Date/Time: 01/25/2017 3:36 PM
[2017-01-25] MEDS ORDERED: CEPH-571 PO (16:09)
--- NOTE | 2017-01-25 16:10 | EMERGENCY ROOM VISIT NOTE ---
History Report prepared by Marija: Nico Tucker Under the Supervision of: Dr. Sandvoal Fontaine M.D. First contact with patient: 13:56 Chief Complaint: VOMITING Stated Complaint: V, ABD. PAIN, TROUBLE SWALLOWING Nursing Triage Summary: triage note: pt reports hx of gastroparesis and crohns. pt reports increased abd pain over the past several weeks. pt reports "i have a new pain that i usually don't have in my left upper abd." History of Present Illness The patient is a 31 year old white female with a past medical history of gastroparesis and Crohn's disease who presents to the ED with a cc of intermittent vomiting beginning three days ago. Positive LUQ abdominal pain. Feels sensation of something stuck in her throat. Feels that she may be dehydrated and has been drinking Pedialyte. 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 No recent antibiotic use. No recent exposure to stream water. Notes that she has been under a lot of stress over the last couple months related to chronic pain in her left finger. She notes that she has had 10 bowel movements today which is relatively normal for her her. Source of History: patient Onset: Three days ago Quality: other (vomiting) Timing: intermittent Associated Symptoms: + abdominal pain (LUQ) Review of Systems See HPI for pertinent positives and negatives. A total of ten systems were reviewed and were otherwise negative. Past Medical & Surgical Medical Problems: (1) Abdominal pain (2) Abdominal pain (3) Acute bronchitis (4) ASTHMA, UNSPECIFIED (5) Bronchitis (6) Constipation (7) Contusion of foot (8) Contusion of foot (9) Crohn's colitis (10) ESOPHAGEAL REFLUX (11) Exacerbation of Crohn's disease (12) Exacerbation of Crohn's disease (13) History of Crohn's disease (14) MIGRAINE UNSPECIFIED W/O INTRACT MGRN W/O STATUS MIGRAINOSUS (15) MORBID OBESITY (16) Small bowel obstruction (17) THYROID DYSFUNC-DELIVER (18) Vomiting Surgical Problems: (1) Hx of appendectomy (2) Hx of cholecystectomy (3) Hx of ileum resection Family History Cancer Diabetes mellitus FHx: seizures Heart disease Hypertension Social History Smoking Status: Never Smoker Alcohol Use: none Drug Use: none Marital Status: Housing Status: lives with family Occupation Status: unemployed Current/Historical Medications Scheduled Cephalexin (Keflex), 1 CAP PO BID Cholecalciferol (Vitamin D), 5,000 INTER.UNIT PO QAM Cyanocobalamin (Vitamin B-12 1000 Mcg), 1,000 MCG PO 2XWK Dicyclomine Hcl (Bentyl), 1 TAB PO TID Levothyroxine Sodium (Levothyroxine Sodium), 150 MCG PO 5XWK Levothyroxine Sodium (Levothyroxine Sodium), 175 MG PO 2XWK Lifitegrast (Xiidra), 1 DROP OPB BID Scheduled PRN Dicyclomine Hcl (Dicyclomine Hcl), 20 MG PO BID PRN for Abdominal Pain/Cramping Epinephrine (Epipen 2-Ruben), 0.3 MG IM UD PRN for ALLERGIC REACTION Fluticasone Propionate (Fluticasone Propionate), 2 SPRAYS ALEJANDRA DAILY PRN for Allergies Symptoms Ondansetron (Ondansetron Odt), 1 TAB PO for Nausea Promethazine HCl (Promethazine HCl), 1 TAB PO for Nausea Tramadol (Ultram), 50 MG PO Q8H PRN for Pain Allergies Coded Allergies: BEE STING (Verified Allergy, Intermediate, SWELLING AND SHORTNESS OF BREATH, 01/25/17) Shellfish (Verified Allergy, Intermediate, HIVES, ITCHING, SLIGH DIFFICULTY BREATHING, 01/25/17) SHRIMP AND CRAB White Fish (Verified Allergy, Intermediate, HIVES, ITCHING, SLIGHT DIFFICULTY BREATHING, 01/25/17) Fish Oil (Verified Allergy, Mild, HIVES, VOMITING, 01/25/17) Adalimumab (Verified Allergy, Unknown, SWELLING AT INJECTION SITE, ) Humira Kit Infliximab (Verified Allergy, Unknown, migraines,itchiness, hair fallou, 01/25/17) Physical Exam Vital Signs Date Time Temp Pulse Resp B/P (MAP) Pulse Ox O2 Delivery O2 Flow Rate FiO2 01/25/17 17:09 37.0 71 18 127/94 98 01/25/17 13:52 37.0 96 18 162/100 98 Room Air Physical Exam GENERAL: Awake, alert, well-appearing, NAD HENT: Normocephalic, atraumatic. EYES: Normal conjunctiva. Sclera non-icteric. NECK: Supple. No nuchal rigidity. FROM. RESPIRATORY: CTAB, no rhonchi, wheezing, crackles CARDIAC: RRR, no MRG ABDOMEN: Obese, soft, BS+. No CVA tenderness. Mild LUQ tenderness to palpation. Mild suprapubic tenderness to palpation. No guarding or rebound. MSK: Scarring over the left chest consistent with prior port placement. No chest wall TTP, no LE edema. NEURO: GCS 15, CN 2-12 intact, moves all 4s on command SKIN: No rash or jaundice noted. Medical Decision & Procedures ER Provider Diagnostic Interpretation: Radiology results as stated below per my review and radiologist interpretation: CT ABD/PELVIS IV CONTRAST ONLY FINDINGS: Lower chest: The heart is normal in size and configuration, without pericardial effusion. The lung bases and pleural spaces are clear. Liver: There is mild hepatic steatosis. The liver is borderline enlarged. No focal masses are visualized. Gallbladder: Surgically absent Spleen: The spleen is enlarged measuring 15 cm Pancreas: Unremarkable. Adrenal glands: Unremarkable. Kidneys: There is symmetric renal cortical enhancement. The kidneys are normal in size without hydronephrosis. Bowel: There are postsurgical changes are prior appendectomy. There is no acute diverticulitis. There are several borderline enlargement jejunal loops, but there are no transition zones indicate a high-grade bowel obstruction. Peritoneum: There is no intraperitoneal free air or abdominal ascites. Vasculature: The abdominal aorta is normal in course and caliber. Adenopathy: None. Pelvic viscera: The bladder, and pelvic viscera are unremarkable. Skeletal structures: No destructive osseous lesions are seen. IMPRESSION: 1. Surgically absent gallbladder and appendix 2. Hepatic steatosis. Stable hepatosplenomegaly. 3. Borderline dilated jejunal loops, but no current evidence of significant bowel obstruction. 4. No evidence of free air 5. No acute inflammatory changes Electronically signed by: Jose Carlos Day M.D. 01/25/2017 3:51 PM CHEST ONE VIEW PORTABLE FINDINGS: The lungs are clear. Cardiac silhouette is normal in size. No pleural effusions. No pneumothorax. IMPRESSION: No acute process. Electronically signed by: Jonatan Orlando M.D. 01/25/2017 2:40 PM Laboratory Results 01/25/17 15:07 Red Blood Count 5.09, Mean Corpuscular Volume 87.0, Mean Corpuscular Hemoglobin 28.3, Mean Corpuscular Hemoglobin Concent 32.5, Mean Platelet Volume 9.7, Neutrophils (%) (Auto) 54.9, Lymphocytes (%) (Auto) 34.6, Monocytes (%) (Auto) 7.9, Eosinophils (%) (Auto) 2.2, Basophils (%) (Auto) 0.1, Neutrophils # (Auto) 3.91, Lymphocytes # (Auto) 2.47, Monocytes # (Auto) 0.56, Eosinophils # (Auto) 0.16, Basophils # (Auto) 0.01 Test 01/25/17 15:05 01/25/17 15:07 01/25/17 15:19 Urine Color YELLOW Urine Appearance CLEAR (CLEAR) Urine pH 6.0 (4.5-7.5) Urine Specific [place] 1.020 (1.000-1.030) Urine Protein NEG (NEG) Urine Glucose (UA) NEG (NEG) Urine Ketones NEG (NEG) Urine Occult Blood 2+ (NEG) Urine Nitrite NEG (NEG) Urine Bilirubin NEG (NEG) Urine Urobilinogen NEG (NEG) Urine Leukocyte Esterase SMALL (NEG) Urine RBC 5-10 /hpf (0-4) Urine WBC 10-30 /hpf (0-5) Urine Epithelial Cells >30 /lpf (0-5) Urine Bacteria 4+ (NEG) Urine Test NEG (NEG) White Blood Count 7.13 K/uL (4.8-10.8) Red Blood Count 5.09 M/uL (4.2-5.4) Hemoglobin 14.4 g/dL (12.0-16.0) Hematocrit 44.3 % (37-47) Mean Corpuscular Volume 87.0 fL (80-100) Mean Corpuscular Hemoglobin 28.3 pg (25-34) Mean Corpuscular Hemoglobin Concent 32.5 g/dl (32-36) Platelet Count 268 K/uL (130-400) Mean Platelet Volume 9.7 fL (7.4-10.4) Neutrophils (%) (Auto) 54.9 % Lymphocytes (%) (Auto) 34.6 % Monocytes (%) (Auto) 7.9 % Eosinophils (%) (Auto) 2.2 % Basophils (%) (Auto) 0.1 % Neutrophils # (Auto) 3.91 K/uL (1.4-6.5) Lymphocytes # (Auto) 2.47 K/uL (1.2-3.4) Monocytes # (Auto) 0.56 K/uL (0.11-0.59) Eosinophils # (Auto) 0.16 K/uL (0-0.5) Basophils # (Auto) 0.01 K/uL (0-0.2) RDW Standard Deviation 42.8 fL (36.4-46.3) RDW Coefficient of Variation 13.6 % (11.5-14.5) Immature Granulocyte % (Auto) 0.3 % Immature Granulocyte # (Auto) 0.02 K/uL (0.00-0.02) Total Bilirubin 0.4 mg/dl (0.2-1) Direct Bilirubin < 0.1 mg/dl (0-0.2) Aspartate Amino Transf (AST/SGOT) 18 U/L (15-37) Alanine Aminotransferase (ALT/SGPT) 25 U/L (12-78) Alkaline Phosphatase 102 U/L (45-117) Total Protein 7.7 gm/dl (6.4-8.2) Albumin 3.5 gm/dl (3.4-5.0) Lipase 191 U/L (73-393) Bedside Hemoglobin 14.3 g/dl (12.0-16.0) Bedside Hematocrit 42 % (37-47) Bedside Sodium 141 mEq/L (135-144) Bedside Potassium 4.0 mEq/L (3.3-5.0) Bedside Chloride 102 mEq/L (101-112) Bedside Total CO2 27 mEq/l (24-31) Anion Gap 17.0 mmol/L (16-25) Bedside Blood Urea Nitrogen 13 mg/dl (7-18) Bedside Creatinine 1.1 mg/dl (0.6-1.3) Bedside Glucose (other) 88 mg/dl (70-99) Bedside Ionized Calcium (Chance) 1.21 mmol/l (1.12-1.32) Laboratory results reviewed by me Medications Administered Medications (Trade) Dose Ordered Sig/Jarek Route Start Time Stop Time Status Last Admin Dose Admin Sodium Chloride 1,000 ml @ 999 mls/hr Q1H1M STAT IV 01/25/17 14:17 01/25/17 15:17 DC 01/25/17 14:17 999 MLS/HR Metoclopramide HCl 20 mg/Sodium Chloride 54 ml @ 162 mls/hr ONE STAT IV 01/25/17 14:17 01/25/17 14:36 DC 01/25/17 14:17 162 MLS/HR Morphine Sulfate (MoRPHine SULFATE INJ) 8 mg NOW STAT IV 01/25/17 14:17 01/25/17 14:20 DC 01/25/17 14:17 8 MG Ceftriaxone Sodium (Rocephin Inj) 1 gm NOW STAT IV 01/25/17 15:38 01/25/17 15:39 DC 01/25/17 15:38 1 GM ECG Indication: abdominal pain Rate (beats per minute): 80 Rhythm: normal sinus Findings: no ectopy, other (Normal axis. Normal intervals. No other STS changes or TWI. ) ED Course 1403: The patient was evaluated in room A4B. A complete history and physical exam was performed. 1417: Ordered Morphine Sulfate 8 mg IV, Metoclopramide HCl 20 mg/Sodium Chloride 54 ml @ 162 mls/hr IV, Sodium Chloride 1000 ml @ 999 mls/hr IV. 1538: Ordered Rocephin Inj 1 gm IV. 1705: I reevaluated the patient. Discussed results and discharge instructions: she verbalized understanding and agreement. The patient is ready for discharge. Medical Decision The patient is a 31 year old white female with a past medical history of gastroparesis and Crohn's disease who presents to the ED with a cc of intermittent vomiting beginning three days ago. Differential diagnosis includes etiologies such as gastroenteritis, food borne illness, infections, appendicitis , diverticulitis, inflammatory bowel disease, obstruction, GI bleed, biliary pathology, as well as others were entertained. Patient was seen and evaluated at the bedside. Patient does state that she has a prior history of Crohn's as well as gastroparesis. Patient denies any history of diabetes. Patient is not taking much medications in terms of any maintenance therapy for her Crohn's given her prior history of allergies to monoclonal meds. Patient did have blood work that was completed. Patient's white count within normal limits. Patient's LFTs and lipase within normal limits. Patient did eat lunch within normal limits. UA positive for blood and infection. UPT negative. Chest x-ray negative. CT did show some hepatic steatosis and borderline loops of bowel without any obstruction. Patient had no other acute findings on her CT. EKG non-ischemic. Patient was informed of these findings and was able tolerate by mouth. Patient was given follow-up with GI. Patient was given strict follow-up, discharge, and return precautions and was discharged home. Medication Reconcilliation Current Medication List: was personally reviewed by me Blood Pressure Screening Patient's blood pressure: Elevated blood pressure Blood pressure disposition: Elevated BP felt to be situational Impression Primary Impression: Abdominal pain Additional Impression: UTI (urinary tract infection) Scribe Attestation The scribe's documentation has been prepared under my direction and personally reviewed by me in its entirety. I confirm that the note above accurately reflects all work, treatment, procedures, and medical decision making performed by me. Departure Information Dispostion Home / Self-Care Prescriptions Dicyclomine Hcl (BENTYL) 20 Mg Tab 1 TAB PO TID for 10 Days, #30 TAB Prov: Sandoval Fontaine M.D. 01/25/17 Tramadol (Ultram) 50 Mg Tab 50 MG PO Q8H Y for Pain, #12 TAB Prov: Sandoval Fontaine M.D. 01/25/17 Cephalexin (KEFLEX) 500 Mg Cap 1 CAP PO BID for 7 Days, #14 CAP Prov: Sandoval Fontaine M.D. 01/25/17 Referrals No Doctor, Assigned (PCP) Patient Instructions My [facility], UTI Additional Instructions Please return to the emergency department if you have worsening or recurrent symptoms not amenable to at-home treatment. Please call for a follow-up appointment with her primary care physician. Please take your medications as prescribed. If you have other concerns and/or complaints please feel free to also call your primary care physician's office or return the ED for further evaluation, management, and treatment. You were found to have an elevated blood pressure today (>120 sytolic or >90 diastolic). Per medicare guidelines, you need to follow up with this blood pressure screening with your Primary Care Physician (PCP). For a new PCP call [phone]. You received narcotic or benzodiazepene medication while in the emergency room today. This is an addictive medication that may cause drowziness as well as constipation. Do not drive, operate heavy machinery, or drink alcohol under the influence of this medication. You may take 600 mg Ibuprofen every 6 hours as needed for pain with food for no more than 2 consecutive days. You may take tylenol 1000mg every 6 hours as needed for pain. You may take motrin and tylenol separately or at the same time. You have been examined and treated today on an emergency basis only. This is not a substitute for, or an effort to provide, complete comprehensive medical care. It is impossible to recognize and treat all injuries or illnesses in a single emergency department visit. It is therefore important that you follow up closely with [facility]. Call as soon as possible for an appointment. Thank you for your time and consideration. I look forward to speaking with you again soon. Please don't hesitate to call us if you have any questions. Problem Qualifiers Primary Impression: Abdominal pain Abdominal location: generalized Qualified Codes: R10.84 - Generalized abdominal pain Additional Impression: UTI (urinary tract infection) Urinary tract infection type: acute cystitis Hematuria presence: with hematuria Qualified Codes: N30.01 - Acute cystitis with hematuria
[2017-01-25] MEDS ORDERED: DICY20TA35 PO (17:03)
[2017-01-25] MEDS ORDERED: TRAM-10 PO (17:03)
[2017-01-25 17:09] VITALS: BP 127/94; PULSE 71; TEMP 37; O2SAT 98
== END 2017-01-25 17:10 | disposition home or self-care (01) ==
LOC: C.EDB 13:48 → C.EDA 17:10
DX: R10.84 Generalized abdominal pain (principal); N30.01 Acute cystitis with hematuria; J45.909 Unspecified asthma, uncomplicated; K21.9 Gastro-esophageal reflux disease without esophagitis; K50.90 Crohn's disease, unspecified, without complications; G43.909 Migraine, unspecified, not intractable, without status migrainosus; E66.01 Morbid (severe) obesity due to excess calories; Z80.9 Family history of malignant neoplasm, unspecified; Z83.3 Family history of diabetes mellitus; Z82.49 Family history of ischemic heart disease and other diseases of the circulatory system; Z79.899 Other long term (current) drug therapy

== ENCOUNTER 2017-01-27 13:37 | Emergency (ER) | payer OTHER ==
[~2017-01-27] VITALS: Ht 180.3 cm; Wt 180.4 kg
[~2017-01-27 13:37] MED LIST changes: +CEPH-571 PO; +DICY20TA35 PO; +LIFI5DRO OPB; +PROM25TA16 PO; +TRAM-10 PO; +ZFRODT4HP PO
[2017-01-27 13:41] VITALS: TEMP 36.8; Ht 180.3 cm; Wt 180.4 kg
--- NOTE | 2017-01-27 14:07 | EMERGENCY ROOM VISIT NOTE ---
History First contact with patient: 13:45 Chief Complaint: HYPERTENSION Stated Complaint: HIGH BP,STOMACH PAIN,THROAT TIGHTNESS History of Present Illness The patient is a 31 year old female who presents to the Emergency Room with complaints of hypertension that she noticed at approximately 12 PM today. The patient describes intermittent dizziness over the last several days. She also describes a numbness and tingling sensation on both sides of her face. She denies any pain in her chest. No shortness of breath. The patient has a history of Crohn's disease. She reports a chronic abdominal pain. She denies any bleeding in her stool. She has felt nauseated, but this is also typical for her. She describes a dull, aching headache. The patient contacted her primary care physician, and was sent here for further evaluation. She has never been on any hypertensive medications. Review of Systems 10 system review performed and negative unless noted in HPI or below Past Medical/Surgical History Medical Problems: (1) Abdominal pain (2) Abdominal pain (3) Acute bronchitis (4) ASTHMA, UNSPECIFIED (5) Bronchitis (6) Constipation (7) Contusion of foot (8) Contusion of foot (9) Crohn's colitis (10) ESOPHAGEAL REFLUX (11) Exacerbation of Crohn's disease (12) Exacerbation of Crohn's disease (13) History of Crohn's disease (14) MIGRAINE UNSPECIFIED W/O INTRACT MGRN W/O STATUS MIGRAINOSUS (15) MORBID OBESITY (16) Small bowel obstruction (17) THYROID DYSFUNC-DELIVER (18) Vomiting Surgical Problems: (1) Hx of appendectomy (2) Hx of cholecystectomy (3) Hx of ileum resection Family History Cancer Diabetes mellitus FHx: seizures Heart disease Hypertension Social History Smoking Status: Never Smoker Alcohol Use: none Drug Use: none Marital Status: Housing Status: lives with family Occupation Status: unemployed Current/Historical Medications Scheduled Cephalexin (Keflex), 1 CAP PO BID Cholecalciferol (Vitamin D), 5,000 INTER.UNIT PO QAM Cyanocobalamin (Vitamin B-12 1000 Mcg), 1,000 MCG PO 2XWK Levothyroxine Sodium (Levothyroxine Sodium), 150 MCG PO 5XWK Levothyroxine Sodium (Levothyroxine Sodium), 175 MG PO 2XWK Lifitegrast (Xiidra), 1 DROP OPB BID Lisinopril (Prinivil), 1 TAB PO DAILY Scheduled PRN Dicyclomine Hcl (Dicyclomine Hcl), 20 MG PO BID PRN for Abdominal Pain/Cramping Epinephrine (Epipen 2-Ruben), 0.3 MG IM UD PRN for ALLERGIC REACTION Fluticasone Propionate (Fluticasone Propionate), 2 SPRAYS ALEJANDRA DAILY PRN for Allergies Symptoms Ondansetron (Ondansetron Odt), 1 TAB PO for Nausea Promethazine HCl (Promethazine HCl), 1 TAB PO for Nausea Tramadol (Ultram), 50 MG PO Q8H PRN for Pain Physical Exam Vital Signs Date Time Temp Pulse Resp B/P (MAP) Pulse Ox O2 Delivery O2 Flow Rate FiO2 01/27/17 15:23 82 138/80 01/27/17 14:19 69 20 152/79 96 Room Air 01/27/17 13:41 36.8 71 18 158/103 97 Room Air Physical Exam VITALS: Vitals are noted on the nurse's note and reviewed by myself. Vital signs stable. GENERAL: 31-year-old female, morbidly obese,, in no acute distress, nondiaphoretic, SKIN: The skin was without rashes, erythema, edema, or bruising. HEAD: Normocephalic atraumatic. EYES: PERRL EOMI MOUTH: Mucous membranes moist. NECK: No JVD. HEART: Regular rate and rhythm without murmurs gallops or rubs. LUNGS: Clear to auscultation bilaterally without wheezes, rales or rhonchi. No accessory muscle use. ABDOMEN: Positive bowel sounds x 4.Soft, nontender, without organomegaly. No guarding or rebound tenderness. MUSCULOSKELETAL: No muscle atrophy, erythema, or edema noted. Strength 5/5 throughout. NEURO: Patient was alert and oriented to person place and time. Cranial nerves grossly intact. Normal sensation to touch. No focal neurological deficits. Medical Decision & Procedures ER Provider Diagnostic Interpretation: CT head IMPRESSION: 1. No acute intracranial pathology. CXR IMPRESSION: No acute cardiopulmonary findings. Laboratory Results 01/27/17 14:02 Red Blood Count 5.28, Mean Corpuscular Volume 86.7, Mean Corpuscular Hemoglobin 29.7, Mean Corpuscular Hemoglobin Concent 34.3, Mean Platelet Volume 9.6, Neutrophils (%) (Auto) 53.3, Lymphocytes (%) (Auto) 35.8, Monocytes (%) (Auto) 7.4, Eosinophils (%) (Auto) 2.8, Basophils (%) (Auto) 0.2, Neutrophils # (Auto) 4.44, Lymphocytes # (Auto) 2.98, Monocytes # (Auto) 0.62, Eosinophils # (Auto) 0.23, Basophils # (Auto) 0.02 01/27/17 14:02 Test 01/27/17 14:02 01/27/17 14:10 White Blood Count 8.33 K/uL (4.8-10.8) Red Blood Count 5.28 M/uL (4.2-5.4) Hemoglobin 15.7 g/dL (12.0-16.0) Hematocrit 45.8 % (37-47) Mean Corpuscular Volume 86.7 fL (80-100) Mean Corpuscular Hemoglobin 29.7 pg (25-34) Mean Corpuscular Hemoglobin Concent 34.3 g/dl (32-36) Platelet Count 276 K/uL (130-400) Mean Platelet Volume 9.6 fL (7.4-10.4) Neutrophils (%) (Auto) 53.3 % Lymphocytes (%) (Auto) 35.8 % Monocytes (%) (Auto) 7.4 % Eosinophils (%) (Auto) 2.8 % Basophils (%) (Auto) 0.2 % Neutrophils # (Auto) 4.44 K/uL (1.4-6.5) Lymphocytes # (Auto) 2.98 K/uL (1.2-3.4) Monocytes # (Auto) 0.62 K/uL (0.11-0.59) Eosinophils # (Auto) 0.23 K/uL (0-0.5) Basophils # (Auto) 0.02 K/uL (0-0.2) RDW Standard Deviation 42.8 fL (36.4-46.3) RDW Coefficient of Variation 13.5 % (11.5-14.5) Immature Granulocyte % (Auto) 0.5 % Immature Granulocyte # (Auto) 0.04 K/uL (0.00-0.02) Anion Gap 8.0 mmol/L (3-11) Est Creatinine Clear Calc Drug Dose 131.6 ml/min Estimated GFR () 76.4 Estimated GFR (Non- 65.9 BUN/Creatinine Ratio 9.0 (10-20) Calcium Level 9.2 mg/dl (8.5-10.1) Total Creatine Kinase 77 U/L (26-192) Creatine Kinase MB < 0.5 ng/ml (0.5-3.6) Creatine Kinase MB Ratio (0-3.0) Troponin I < 0.015 ng/ml (0-0.045) Urine Color YELLOW Urine Appearance CLEAR (CLEAR) Urine pH 5.5 (4.5-7.5) Urine Specific [place] 1.017 (1.000-1.030) Urine Protein NEG (NEG) Urine Glucose (UA) NEG (NEG) Urine Ketones NEG (NEG) Urine Occult Blood TRACE (NEG) Urine Nitrite NEG (NEG) Urine Bilirubin NEG (NEG) Urine Urobilinogen NEG (NEG) Urine Leukocyte Esterase TRACE (NEG) Urine WBC (Auto) 1-5 /hpf (0-5) Urine RBC (Auto) 5-10 /hpf (0-4) Urine Hyaline Casts (Auto) 1-5 /lpf (0-5) Urine Epithelial Cells (Auto) >30 /lpf (0-5) Urine Bacteria (Auto) NEG (NEG) Urine Test NEG (NEG) Medications Administered Medications (Trade) Dose Ordered Sig/Jarek Route Start Time Stop Time Status Last Admin Dose Admin Lisinopril (Zestril Tab) 5 mg NOW ONCE PO 01/27/17 15:30 01/27/17 15:31 DC 01/27/17 15:35 5 MG ECG Indication: other Rate (beats per minute): 69 Rhythm: normal sinus ED Course Patient was seen and examined Vital signs including blood pressure were reviewed medications list was verified with patient Labs were obtained, and a saline lock was established An EKG was performed. The patient was put on a monitor. Imaging was performed and reviewed Upon reevaluation, the patient was resting comfortably in bed. A manual blood pressure was checked. We discussed the results of her workup. She voiced understanding. The patient was given 1 dose of lisinopril 5 mg I reviewed discharge instructions the patient. They voiced understanding and had no further questions. Medical Decision Differential diagnoses: Hypertension, hypertensive urgency/emergency, renal dysfunction, CVA, ACS, anxiety This patient is a 31-year-old female that presents emergency department with multiple complaints such as dizziness, headache, numbness, tingling and hypertension. Upon review of past visits, the patient is fairly consistently hypertensive. Laboratories did not reveal any signs of renal disease. Her troponin is negative. EKG is normal sinus rhythm with no signs of ischemia or infarction. A CT of the head was performed. No acute findings were noted. I do not see any signs of hypertensive urgency or emergency. The patient was started on lisinopril 5 mg daily. She was given a follow-up appointment early next week with her primary care physician for a recheck. She will return to emergency department with any new or worsening symptoms. This chart was completed in part utilizing [email or web address] Speech Voice Recognition software. Attempts were made to minimize the grammatical errors, random word insertions, pronoun errors and incomplete sentences. Any formal questions or concerns about the content, text or information contained within the body of this dictation should be directly addressed to the provider for clarification. Blood Pressure Screening Patient's blood pressure: Elevated blood pressure Blood pressure disposition: Did not require urgent referral Impression Primary Impression: Hypertension Departure Information Dispostion Home / Self-Care Condition GOOD Prescriptions Lisinopril (PRINIVIL) 5 Mg Tab 1 TAB PO DAILY for 30 Days, #30 TAB 5 Refills Prov: Candida Reyes PA-C 01/27/17 Referrals No Doctor, Assigned (PCP) Patient Instructions My [facility] Additional Instructions You were evaluated in the emergency department today for high blood pressure. Your blood pressure is slightly elevated. You have been started on lisinopril 5 mg. Please take 1 tab daily. Please follow-up with your primary care physician within the next 2-3 days for a blood pressure recheck. Please also continue taking the antibiotic for your urinary tract infection. You should have a urinalysis repeated after you are done with the antibiotic. Please return to the emergency department with any new or worsening symptoms.
[2017-01-27 14:14] LABS: BASO % 0.2 %; BASO ABS # 0.02 K/uL (0-0.2); COMPLETE YES; EOS % 2.8 %; HEMATOCRIT 45.8 % (37-47); IG% 0.5 %; LYMPH % 35.8 %; LYMPH ABS # 2.98 K/uL (1.2-3.4); MEAN CELL VOLUME 86.7 fL (80-100); MEAN CORPUSCULAR HEMOGLOBIN 29.7 pg (25-34); MEAN CORPUSCULAR HGB CONC 34.3 g/dl (32-36); MEAN PLATELET VOLUME 9.6 fL (7.4-10.4); MONO % 7.4 %; NEUT % 53.3 %; PLATELET COUNT 276 K/uL (130-400); RED BLOOD COUNT 5.28 M/uL (4.2-5.4); WHITE BLOOD COUNT 8.33 K/uL (4.8-10.8)
[2017-01-27 14:19] VITALS: O2SAT 96
--- NOTE | 2017-01-27 14:39 | DIAGNOSTIC IMAGING REPORT ---
CHEST ONE VIEW PORTABLE CLINICAL HISTORY: Hypertension. COMPARISON STUDY: Chest radiograph January 25, 2017. FINDINGS: Lung volumes are normal. No pneumothorax or pleural effusion is present. There is no consolidation to suggest pneumonia and there is no evidence of pulmonary edema. Cardiomediastinal silhouette is normal. IMPRESSION: No acute cardiopulmonary findings. Electronically signed by: Kole France M.D. 01/27/2017 2:38 PM Dictated Date/Time: 01/27/2017 2:37 PM
[2017-01-27 14:41] LABS: BLOOD UREA NITROGEN 10 mg/dl (7-18); CALCIUM 9.2 mg/dl (8.5-10.1); CARBON DIOXIDE 26 mmol/L (21-32); CHLORIDE 103 mmol/L (98-107); GLUCOSE 84 mg/dl (70-99); POTASSIUM 3.7 mmol/L (3.5-5.1); SODIUM 137 mmol/L (136-145)
[2017-01-27 14:44] LABS: MANUAL MICROSCOPIC REQUIRED? NO; REVIEW REQ? NO; URINE APPEARANCE CLEAR (CLEAR); URINE BILIRUBIN NEG (NEG); URINE COLOR YELLOW; URINE EPITHELIAL CELL AUTO >30 /lpf (0-5); URINE NITRITE NEG (NEG); URINE PH 5.5 (4.5-7.5); URINE SPECIFIC GRAVITY 1.017 (1.000-1.030); UROBILINOGEN NEG (NEG)
--- NOTE | 2017-01-27 14:53 | DIAGNOSTIC IMAGING REPORT ---
HEAD WITHOUT CONTRAST (CT) CLINICAL HISTORY: 31 years-old Female presenting with MACIAS, dizziness HTN. TECHNIQUE: Multidetector CT imaging of the head was performed without the use of intravenous contrast. IV contrast: None. A dose lowering technique was used consistent with the principles of ALARA (as low as reasonably achievable). COMPARISON: 07/14/2016. CT DOSE (mGy.cm): The estimated cumulative dose is 741.55 mGycm. FINDINGS: Image quality is degraded by motion artifact. This somewhat negatively affects diagnostic sensitivity the exam. Human Development Professor topogram: Unremarkable. Ventricles and sulci normal in size. Brain parenchyma normal in appearance with preserved prater-white differentiation. No mass effect or midline shift. No hemorrhage or acute territorial infarct. No extra-axial fluid collection. Paranasal sinuses and mastoid air cells clear. Calvarium intact. IMPRESSION: 1. No acute intracranial pathology. Electronically signed by: Fam Terrazas M.D. 01/27/2017 2:51 PM Dictated Date/Time: 01/27/2017 2:49 PM
[2017-01-27 15:23] VITALS: BP 138/80; PULSE 82
[2017-01-27] MEDS ORDERED: LISI5TAB PO (15:28)
[2017-01-27] MEDS ORDERED: LISINOPRIL 5 MG TAB PO ONE (15:30)
== END 2017-01-27 15:45 | disposition home or self-care (01) ==
LOC: C.EDB 13:39 → C.EDC 15:45
DX: I10 Essential (primary) hypertension (principal); R42 Dizziness and giddiness; R20.0 Anesthesia of skin; E07.9 Disorder of thyroid, unspecified; K50.90 Crohn's disease, unspecified, without complications; R10.9 Unspecified abdominal pain; G89.29 Other chronic pain; J45.909 Unspecified asthma, uncomplicated; K21.9 Gastro-esophageal reflux disease without esophagitis; Z79.899 Other long term (current) drug therapy; Z87.09 Personal history of other diseases of the respiratory system; Z87.19 Personal history of other diseases of the digestive system; Z82.0 Family history of epilepsy and other diseases of the nervous system; Z82.49 Family history of ischemic heart disease and other diseases of the circulatory system; Z83.3 Family history of diabetes mellitus

== ENCOUNTER → 2017-03-31 | Outpatient (CLI) | payer OTHER ==
[~2017-03-31] MED LIST changes: -CEPH-571 PO; -DICY20TA35 PO; +LISI5TAB PO
== END | disposition home or self-care (01) ==
LOC: C.LAB1850 09:32
PROVIDERS: ATTEND Physician Assistant
DX: N91.2 Amenorrhea, unspecified (principal)

== ENCOUNTER → 2017-05-08 | Outpatient (CLI) | payer OTHER ==
--- NOTE | 2017-05-08 11:37 | DIAGNOSTIC IMAGING REPORT ---
THYROID ULTRASOUND HISTORY: R94.6 Abnormal thyroid function test E04.1 Thyroid nodule COMPARISON: None. FINDINGS: Right lobe: 5.3 x 2.0 x 2.4 cm. The gland is heterogeneous. No definite nodules identified. Left lobe: 5.5 x 2.0 x 2.0 cm. The gland is heterogeneous. No definite nodules identified. Isthmus: 7 mm in thickness. No nodules. IMPRESSION: Mildly enlarged and heterogeneous thyroid gland. No definite nodules. Electronically signed by: Jonatan Orlando M.D. 05/08/2017 11:36 AM Dictated Date/Time: 05/08/2017 11:31 AM
== END | disposition home or self-care (01) ==
LOC: C.ULTRBC 11:08
PROVIDERS: ATTEND Family Medicine Adult Medicine
DX: E04.1 Nontoxic single thyroid nodule (principal); R94.6 Abnormal results of thyroid function studies

== ENCOUNTER → 2017-05-09 | Outpatient (CLI) | payer OTHER | END | disposition home or self-care (01) | LOC: C.LAB1850 10:45 | PROVIDERS: ATTEND Internal Medicine Endocrinology, Diabetes & Metabolism | DX: E03.9 Hypothyroidism, unspecified (principal); E66.9 Obesity, unspecified ==

== ENCOUNTER → 2017-06-07 | Outpatient (CLI) | payer OTHER | END | disposition home or self-care (01) | LOC: C.LAB 10:52 | PROVIDERS: ATTEND Internal Medicine Endocrinology, Diabetes & Metabolism | DX: E03.9 Hypothyroidism, unspecified (principal) ==

== ENCOUNTER → 2017-06-30 | Outpatient (CLI) | payer OTHER ==
[2017-06-30 15:22] LABS: HEMATOCRIT 45.3 % (37-47); HEMOGLOBIN 15.7 g/dL (12.0-16.0)
[2017-06-30 15:44] LABS: BLOOD UREA NITROGEN 10 mg/dl (7-18); CALCIUM 9.2 mg/dl (8.5-10.1); CARBON DIOXIDE 25 mmol/L (21-32); CREATININE 0.98 mg/dl (0.60-1.20); GLUCOSE 95 mg/dl (70-99); POTASSIUM 4.1 mmol/L (3.5-5.1); SODIUM 138 mmol/L (136-145)
[2017-07-01 06:36] LABS: HEMOGLOBIN A1C 5.2 % (4.5-5.6)
== END | disposition home or self-care (01) ==
LOC: C.LAB1850 14:27
PROVIDERS: ATTEND Internal Medicine Endocrinology, Diabetes & Metabolism
DX: E03.9 Hypothyroidism, unspecified (principal); E16.1 Other hypoglycemia; E55.9 Vitamin D deficiency, unspecified; S82.899A Other fracture of unspecified lower leg, initial encounter for closed fracture; X58.XXXA Exposure to other specified factors, initial encounter

== ENCOUNTER → 2017-07-07 | Outpatient (CLI) | payer OTHER | END | disposition home or self-care (01) | LOC: C.LABSPEC 14:59 | PROVIDERS: ATTEND Internal Medicine Endocrinology, Diabetes & Metabolism | DX: E66.9 Obesity, unspecified (principal) ==

== ENCOUNTER → 2017-08-07 | Outpatient (CLI) | payer OTHER ==
[~2017-08-07] MED LIST changes: -TRAM-10 PO
--- NOTE | 2017-08-07 17:03 | DIAGNOSTIC IMAGING REPORT ---
CT (CHEST) THORAX WITH CT DOSE: 1738.78 mGy.cm HISTORY: Left arm edema VENOUS PHASE STANDARD CHEST PER MCS TECHNIQUE: Multiaxial CT images of the chest were performed following the intravenous administration of contrast. A dose lowering technique was utilized adhering to the principles of ALARA. COMPARISON: None. FINDINGS: Lungs are considered clear. Patient, due to large body habitus, with scan with right arm above the shoulders with left arm below. Potentially creates artifact. Is also considerable artifact from the patient's body habitus. There are findings of considerable high axillary adenopathy bilaterally. Nodes measure up to 2.5 cm bilaterally and are multiple in terms of number. There is mild low cervical adenopathy. Lungs are considered clear. The right venous system appears to be unremarkable with no significant stenotic process. The left venous system is not felt to be diagnostically evaluated possibly due to body habitus or technical considerations. An attempt may be made venous Doppler of the left for further evaluation. IMPRESSION: 1. Significant adenopathy in the axillary and low cervical regions bilaterally. 2. Technically limited study due to patient body habitus and patient position within the scanner. 3. The right venous return appears unremarkable. 4. The left venous structures are not diagnostically evaluated due to the patient's arm position and size. 5. Venous Doppler evaluation of the left arm as alternative may be of assistance. The above report was generated using voice recognition software. It may contain grammatical, syntax or spelling errors. Electronically signed by: Ren Tracy M.D. 08/07/2017 5:02 PM Dictated Date/Time: 08/07/2017 4:49 PM
== END | disposition home or self-care (01) ==
LOC: C.CTS 15:56
PROVIDERS: ATTEND Surgery Vascular Surgery
DX: R60.0 Localized edema (principal)

== ENCOUNTER → 2017-08-14 | Outpatient (CLI) | payer OTHER | END | disposition home or self-care (01) | LOC: C.LAB1850 09:02 | PROVIDERS: ATTEND Internal Medicine Endocrinology, Diabetes & Metabolism | DX: E03.9 Hypothyroidism, unspecified (principal) ==

== ENCOUNTER → 2017-08-29 | Outpatient (CLI) | payer OTHER ==
[~2017-08-29] MED LIST changes: +CHOL1TAB46 PO; +CYNI1000 IM; +ERGO500037 PO; +LEVO175T PO; +PRLSR20 PO; +SYMIN/8045 INH; +VNTHFA/IN INH
--- NOTE | 2017-08-29 15:05 | MAMMOGRAPHY REPORT ---
BILATERAL DIGITAL DIAGNOSTIC MAMMOGRAM TOMOSYNTHESIS WITH CAD AND TARGETED LEFT ULTRASOUND: 08/29/2017 CLINICAL HISTORY: 32-year-old woman with bilateral axillary lymphadenopathy noted on recent chest CT. She also reports a history of Crohn's disease for which she had a Port-A-Cath placed in 2013, that did not function very well and was subsequently removed in 2014. She notes swelling of the left arm and left superior breast since that time. TECHNIQUE: Bilateral breast tomosynthesis in addition to standard 2D mammography was performed. Curre nt study was also evaluated with a Computer Aided Detection (CAD) system. COMPARISON: Comparison is made to exams dated: Bilateral mammograms dated 11/19/2008, CT chest venogram dated 08/07/2017. BREAST COMPOSITION: The tissue of both breasts is almost entirely fatty. FINDINGS: There are a few lymph nodes visualized in the left axillary region on the MLO view, that ap pears similar in size and number dating back to the 2009 mammogram, suggesting benignity with long-te rm stability. Further evaluation with bilateral axillary ultrasound was also performed. There is mild asymmetric vascular ectasia of the left breast venous structures compared to the right, that is also new comparing to the 2009 mammograms. In the far posterior left breast along the poste rior nipple line on the CC view there is a focal rectangular 14 x 5 mm structure that is isodense to the venous structures. On the corresponding tomosynthesis images (slice 57/87) this does not corresp ond to a venous structure. There is no associated metallic density. No other masses, asymmetries, a reas of architectural distortion or suspicious calcifications are identified bilaterally. Targeted ultrasound was performed in both axillae and also over the skin scar in the area of prior po rt in the upper inner quadrant of the left breast, far superiorly. While scanning over the scar from prior port, there is a geographic rectangular versus tubular clearly defined hypoechoic structure wi th thin echogenic periphery measuring 12.9 x 4.4 mm, that appears round or cylindrical in the radial plane. This is located between 1.0 and 1.5 cm from the dermis and likely correlates with the mammogr aphic finding. This is suspicious for a retained foreign body. The prior chest CT dated 08/07/2017 was reviewed and there is a possible corresponding abnormality see n on page [phone]. Additional ultrasound performed in the right and left axilla demonstrates several morphologically nor mal lymph nodes with cortical thickness less than 3 mm, which is within the range of normal. There i s no evidence of suspicious axillary lymphadenopathy. IMPRESSION: ACR BI-RADS CATEGORY 2: BENIGN, TARGETED ULTRASOUND ACR BI-RADS CATEGORY 2: BENIGN 1. Morphologically normal right and left axillary lymph nodes are identified on ultrasound, with cor tical thickness all measuring less than 3 mm. Additionally, the lymph nodes seen in the left axillar y region on the left MLO view appear stable in size and number comparing back to a 2009 mammogram, sexton ggesting benignity. However, continued clinical monitoring is recommended, as biopsy of a clinically suspicious mass should not be precluded by negative imaging. 2. There is a 13 mm rectangular versus cylindrical density in the far posterior and superior approxi mate 11:00 axis of the left breast, with corresponding geographic cylindrical mass on ultrasound note d while scanning just deep to the skin surgical scar from a previous port. This finding is concernin g for a retained foreign body, and this was discussed with the patient's vascular surgeon, Dr. Rodriguez on 08/29/2017 at approximately 2:15 PM. These results and recommendations were discussed with the patient at the time of the exam. Approximately 10% of breast cancers are not detected with mammography. A negative mammographic report should not delay biopsy if a clinically suggestive mass is present. Chyna Burger M.D. ay/:08/29/2017 14:32:19 Director Of Preclinical Research: Colin WOMACK(Shelbi)(Kwan), [facility] letter sent: Normal 1/2 BI-RADS Code: ACR BI-RADS Category 2: Benign Ultrasound BI-RADS: ACR BI-RADS Category 2: Benign
== END | disposition home or self-care (01) ==
LOC: C.MAMM 08:55
PROVIDERS: ATTEND Family Medicine Adult Medicine
DX: R59.0 Localized enlarged lymph nodes (principal)

== ENCOUNTER → 2017-09-05 | Day surgery (SDC) | payer OTHER ==
[2017-08-29 16:55] VITALS: Ht 180.3 cm; Wt 189.1 kg
[~2017-09-05] VITALS: Ht 180.3 cm; Wt 189.1 kg
[~2017-09-05] MED LIST changes: -CHOL1TAB42 PO; -CYAN10004 PO; -DICY20TA10 PO; -FLNIN/ NAE; -LEVO150T9 PO; +LIDOCAINE HCL 2% 2 ML VIAL (20MG/ML) ONE; -LIFI5DRO OPB; -LISI5TAB PO; +PROPOFOL IV EMULSION 10 MG/ML 20 ML VIAL ONE; +SODIUM CHLORIDE 0.9% 500ML 500 ML IV ONE
--- NOTE | 2017-09-05 13:37 | Endo History and Physical ---
History & Physical Date of Service: September 05, 2017. Chief Complaint: crohns, heartburn, bloating Referring Physician: Dr. Osborn History of Present Illness 32 yo presenting for EGD & colonoscopy for possible Crohn's and gastroparesis Past Medical History Fractures, Asthma, Gastrointestinal Disorder, Reflux, Sleep Apnea, Thyroid Disease, Chronic Steroid Use Past Surgical History Hx Cardiac Surgery: No Hx Internal Defibrillator: No Hx Pacemaker: No Hx Abdominal Surgery: Yes ( SMALL BOWEL RESECTION,Cholecystectomy, Appendectomy ) Hx of Implantable Prosthesis: No Hx Post-Op Nausea and Vomiting: No Hx Cancer Surgery: No Hx Thoracic Surgery: No Hx Orthopedic: Yes (MASS EXCISION left finger) Hx Urinary Tract Surgery: No Family History Colon CA, IBD Social History Smoking Status: Never Smoker Hx Substance Use: No Hx Alcohol Use: No Allergies Coded Allergies: BEE STING (Verified Allergy, Intermediate, SWELLING AND SHORTNESS OF BREATH, 09/05/17) Shellfish (Verified Allergy, Intermediate, HIVES, ITCHING, SLIGH DIFFICULTY BREATHING, 09/05/17) SHRIMP AND CRAB White Fish (Verified Allergy, Intermediate, HIVES, ITCHING, SLIGHT DIFFICULTY BREATHING, 09/05/17) Fish Oil (Verified Allergy, Mild, HIVES, VOMITING, 09/05/17) Adalimumab (Verified Allergy, Unknown, SWELLING AT INJECTION SITE, 09/05/17 ) Humira Kit Certolizumab Pegol (Unverified Allergy, Unknown, swelling baseball sized swelling , 09/05/17) Infliximab (Verified Allergy, Unknown, migraines,itchiness, hair fallou, ) Uncoded Allergies: CONTRAST DYE (Allergy, Severe, hives, throat swelled, 09/05/17) Current Medications Reported Home Medications Medications Dose Route/Sig Max Daily Dose Days Date Category Vitamin D3 (Cholecalciferol) 5,000 Unit Tab 1 Tab PO DAILY 08/29/17 Reported Ventolin Hfa (Albuterol) 200 Puffs/42318 Mcg Aers 1-2 Puffs INH Q6H PRN 08/29/17 Reported Symbicort 80/4.5 Inhaler (Budesonide/Formoterol Fumarate) Aero 2 Puffs INH BID PRN 08/29/17 Reported Prilosec (Omeprazole) 20 Mg Capcr 20 Mg PO DAILY 08/29/17 Reported Vitamin D 92146 Unit (Ergocalciferol) 50,000 Unit Cap 1 Cap PO DAILY 28 08/29/17 Reported Cyanocobalamin 1,000 Mcg/Ml Inj 1 Ml IM 2XWK 08/29/17 Reported Synthroid (Levothyroxine Sodium) 175 Mcg Tab 1 Tab PO DAILY 30 08/29/17 Reported Ondansetron Odt (Ondansetron) 1 Homepack Ea 1 Tab PO PRN 01/25/17 Reported Promethazine HCl 25 Mg Tab 1 Tab PO PRN 01/25/17 Reported Epipen 2-Ruben (Epinephrine) 0.3 Mg Inj 0.3 Mg IM UD PRN 04/13/16 Reported Vital Signs Weight (Kilograms): 189.09 Height (Feet): 5 Height (Inches): 11 Date Time Temp Pulse Resp B/P (MAP) Pulse Ox O2 Delivery O2 Flow Rate FiO2 09/05/17 13:14 36.8 87 18 145/104 (118) 95 Room Air Physical Exam General Appearance: WD/WN, no apparent distress Respiratory/Chest: Respiratory effort: no dyspnea Auscultation: breath sounds normal, CTA except as noted, no wheezing Cardiovascular: Apical Impulse: not displaced Heart Auscultation: RRR, normal S1 Abdomen: Bowel Sounds: normal Inspection & Palpation: soft, non-distended, no tenderness, guarding & rebound Assessment and Plan 32 yo presenting for evaluation of possible Crohn's and EGD for GERD/ Gastroparesis
--- NOTE | 2017-09-05 14:22 | GI REPORT ---
Patient Name: Dionne Rivas Procedure Date: 09/05/2017 1:41 PM Date of : 1985 Admit Type: Outpatient Age: 32 Gender: Female Attending MD: Donaldo Sesay MD Procedure: Upper GI endoscopy Providers: Donaldo Sesay MD Referring MD: Manuel Herbert MD Indications: Abdominal bloating, Nausea with vomiting Medicines: Monitored Anesthesia Care Complications: No immediate complications. Estimated blood loss: None. Estimated Blood Loss: Estimated blood loss: none. Procedure: Pre-Anesthesia Assessment: - Pre-Anesthesia Assessment: - Prior to the procedure, a History and Physical was performed, and patient medications, allergies and sensitivities were reviewed. The patient's tolerance of previous anesthesia was reviewed. Please see [facility] for complete details. - The risks and benefits of the procedure and the sedation options and risks were discussed with the patient. All questions were answered and informed consent was obtained. - Patient identification and proposed procedure were verified prior to the procedure by the physician and the nurse. The procedure was verified in the pre-procedure area in the procedure room. After obtaining informed consent, the endoscope was passed carefully and meticuously under direct vision and only advanced when the lumen was clearly identified, C02 insuflation was utilized throughout the entirity of the procedure. Throughout the procedure, the patient's blood pressure, pulse, and oxygen saturations were monitored continuously. After obtaining informed consent, the endoscope was passed under direct vision. Throughout the procedure, the patient's blood pressure, pulse, and oxygen saturations were monitored continuously. The scope was introduced through the mouth, and advanced to the second part of duodenum. The upper GI endoscopy was accomplished without difficulty. The patient tolerated the procedure well. Findings: The examined esophagus was normal. The entire examined stomach was normal. Biopsies were taken with a cold forceps for histology. The examined duodenum was normal. Biopsies for histology were taken with a cold forceps for evaluation of celiac disease. Impression: - Normal esophagus. - Normal stomach. Biopsied. - Normal examined duodenum. Biopsied. Recommendation: - Await pathology results. - Discharge patient to home (with escort). - Return to referring physician as previously scheduled. - Perform a colonoscopy today. Donaldo Sesay MD 09/05/2017 2:21:49 PM This report has been signed electronically. Note Initiated On: 09/05/2017 1:41 PM Number of Addenda: 0 I attest to the content of the Intraoperative Record and orders documented therein, exceptions below {[id number]}
--- NOTE | 2017-09-05 14:23 | Anesthesiology Progress Note ---
Anesthesia Post Op Note Date & Time September 05, 2017 at 14:22 Vital Signs Pain Intensity: 0 Vital Signs Past 12 Hours Date Time Temp Pulse Resp B/P (MAP) Pulse Ox O2 Delivery O2 Flow Rate FiO2 09/05/17 13:14 36.8 87 18 145/104 (118) 95 Room Air Notes Mental Status: alert / awake / arousable, participated in evaluation Pt Amnestic to Procedure: Yes Nausea / Vomiting: adequately controlled Pain: adequately controlled Airway Patency, RR, SpO2: stable & adequate BP & HR: stable & adequate Hydration State: stable & adequate Anesthetic Complications: no major complications apparent
--- NOTE | 2017-09-05 14:24 | GI REPORT ---
Patient Name: Dionne Rivas Procedure Date: 09/05/2017 1:42 PM Date of : 1985 Admit Type: Outpatient Age: 32 Gender: Female Attending MD: Donaldo Sesay MD Procedure: Colonoscopy Providers: Donaldo Sesay MD Referring MD: Manuel Herbert MD Indications: Suspected Crohn's disease of the colon, Follow-up of Crohn's disease of the colon Medicines: Monitored Anesthesia Care Complications: No immediate complications. Estimated blood loss: None. Estimated Blood Loss: Estimated blood loss: none. Procedure: Pre-Anesthesia Assessment: - Pre-Anesthesia Assessment: - Prior to the procedure, a History and Physical was performed, and patient medications, allergies and sensitivities were reviewed. The patient's tolerance of previous anesthesia was reviewed. Please see [facility] for complete details. - The risks and benefits of the procedure and the sedation options and risks were discussed with the patient. All questions were answered and informed consent was obtained. - Patient identification and proposed procedure were verified prior to the procedure by the physician and the nurse. The procedure was verified in the pre-procedure area in the procedure room. After obtaining informed consent, the endoscope was passed carefully and meticuously under direct vision and only advanced when the lumen was clearly identified, C02 insuflation was utilized throughout the entirity of the procedure. Throughout the procedure, the patient's blood pressure, pulse, and oxygen saturations were monitored continuously. After I obtained informed consent, the scope was passed under direct vision. Throughout the procedure, the patient's blood pressure, pulse, and oxygen saturations were monitored continuously. The scope was introduced through the anus and advanced to the terminal ileum, with identification of the appendiceal orifice and IC valve. The colonoscopy was performed without difficulty. The patient tolerated the procedure well. The quality of the bowel preparation was good. Findings: There was evidence of a prior end-to-side colo-colonic anastomosis in the cecum. This was patent and was characterized by healthy appearing mucosa. Multiple small-mouthed diverticula were found in the sigmoid colon. Internal hemorrhoids were found during retroflexion. The exam was otherwise without abnormality on direct and retroflexion views. Impression: - Patent end-to-side colo-colonic anastomosis, characterized by healthy appearing mucosa. - Diverticulosis in the sigmoid colon. - Internal hemorrhoids. - The examination was otherwise normal on direct and retroflexion views. - No specimens collected. Recommendation: - Written discharge instructions were provided to the patient. - Discharge patient to home (with escort). - Return to referring physician as previously scheduled. Donaldo Sesay MD 09/05/2017 2:23:49 PM This report has been signed electronically. Note Initiated On: 09/05/2017 1:42 PM Number of Addenda: 0 I attest to the content of the Intraoperative Record and orders documented therein, exceptions below {[id number]}
--- NOTE | 2017-09-05 14:29 | Discharge Instructions ---
Endoscopy Patient Instructions Date / Procedure(s) Performed September 05, 2017. Colonoscopy, EGD Allergy Information Coded Allergies: BEE STING (Verified Allergy, Intermediate, SWELLING AND SHORTNESS OF BREATH, 09/05/17) Shellfish (Verified Allergy, Intermediate, HIVES, ITCHING, SLIGH DIFFICULTY BREATHING, 09/05/17) SHRIMP AND CRAB White Fish (Verified Allergy, Intermediate, HIVES, ITCHING, SLIGHT DIFFICULTY BREATHING, 09/05/17) Fish Oil (Verified Allergy, Mild, HIVES, VOMITING, 09/05/17) Adalimumab (Verified Allergy, Unknown, SWELLING AT INJECTION SITE, 09/05/17 ) Humira Kit Certolizumab Pegol (Unverified Allergy, Unknown, swelling baseball sized swelling , 09/05/17) Infliximab (Verified Allergy, Unknown, migraines,itchiness, hair fallou, ) Uncoded Allergies: CONTRAST DYE (Allergy, Severe, hives, throat swelled, 09/05/17) Discharge Date / Findings September 05, 2017. EGD Findings: The examined esophagus was normal. The entire examined stomach was normal. Biopsies were taken with a cold forceps for histology. The examined duodenum was normal. Biopsies for histology were taken with a cold forceps for evaluation of celiac disease. Impression: - Normal esophagus. - Normal stomach. Biopsied. - Normal examined duodenum. Biopsied. Recommendation: - Await pathology results. - Discharge patient to home (with escort). - Return to referring physician as previously scheduled. - Perform a colonoscopy today. Colonoscopy: Findings: There was evidence of a prior end-to-side colo-colonic anastomosis in the cecum. This was patent and was characterized by healthy appearing mucosa. Multiple small-mouthed diverticula were found in the sigmoid colon. Internal hemorrhoids were found during retroflexion. The exam was otherwise without abnormality on direct and retroflexion views. Impression: - Patent end-to-side colo-colonic anastomosis, characterized by healthy appearing mucosa. - Diverticulosis in the sigmoid colon. - Internal hemorrhoids. - The examination was otherwise normal on direct and retroflexion views. - No specimens collected. Recommendation: - Written discharge instructions were provided to the patient. - Discharge patient to home (with escort). - Return to referring physician as previously scheduled. Provider Instructions Activity Restrictions - No exercising or heavy lifting for 24 hours. - Do not drink alcohol the day of the procedure. - Do not drive a car or operate machinery until the day after the procedure. - Do not make any important decisions or sign important papers in 24 hours after the procedure. Following Day: - Return to full activity which may include returning to work/school. Diet Start your diet with liquids and light foods (jello, soup, juice, toast). Then eat your usual diet if not nauseated. Treatment For Common After Affects For mild abdominal pain, bloating, or excessive gas: - Rest - Eat lightly - Lie on right side Follow-Up Information Follow-up with Dr. Osborn as scheduled Anesthesia Information What You Should Know You have had a procedure that required some medicine to reduce anxiety and discomfort. This treatment is called moderate sedation. After receiving the treatment, you may be sleepy, but you will be able to breathe on your own. The effects of the treatment may last for several hours. Follow these instructions along with Activity/Diet recommendations noted above: * Do NOT do anything where dizziness or clumsiness would be dangerous. * Rest quietly at home today, then you can be up and about tomorrow. * Have a responsible person stay with you the rest of today. * You may have had an I.V. today. If so, you may take the dressing off later today. Recommendations Call your doctor if: * Trouble breathing * Continuous vomiting for more than 24 hours * Temperature above 101 degrees * Severe abdominal pain or bloating * Pain not relieved by pain medicine ordered * There is increased drainage or redness from any incision * A large amount of rectal bleeding greater than 2-3 tablespoons. (If you had a polyp/s removed or have hemorrhoids, a small amount of blood - from the rectum is to be expected.) * You have any unanswered questions or concerns. IN THE EVENT OF A SERIOUS EMERGENCY, GO TO THE NEAREST EMERGENCY ROOM Your discharge instructions were prepared by provider Donaldo Sesay. Patient Instructions Signature Page Dionne Rivas Patient (or Guardian) Signature/Date: I have read and understand the instructions given to me by my caregivers. Caregiver/RN/Doctor Signature/Date: The above-named patient and/or guardian has received patient instructions on this date. + Original Patient Signature Page (only) stays with chart. Please make copy for patient.
[2017-09-05 14:49] VITALS: BP 129/89; PULSE 74; O2SAT 98
== END | disposition home or self-care (01) ==
LOC: C.GI 12:38
PROVIDERS: ATTEND Internal Medicine
DX: R14.0 Abdominal distension (gaseous) (principal); R11.2 Nausea with vomiting, unspecified; K64.8 Other hemorrhoids; K50.90 Crohn's disease, unspecified, without complications; K21.9 Gastro-esophageal reflux disease without esophagitis; K31.84 Gastroparesis; E07.9 Disorder of thyroid, unspecified; Z91.030 Bee allergy status; Z91.013 Allergy to seafood; Z91.041 Radiographic dye allergy status; Z79.52 Long term (current) use of systemic steroids; Z90.49 Acquired absence of other specified parts of digestive tract; Z80.0 Family history of malignant neoplasm of digestive organs

== ENCOUNTER → 2017-11-01 | Outpatient (CLI) | payer OTHER ==
[~2017-11-01] MED LIST changes: -LEVO175T PO; +LEVO200T PO; -LIDOCAINE HCL 2% 2 ML VIAL (20MG/ML) ONE; -PROPOFOL IV EMULSION 10 MG/ML 20 ML VIAL ONE; -SODIUM CHLORIDE 0.9% 500ML 500 ML IV ONE
== END | disposition home or self-care (01) ==
LOC: C.LABSPEC 11:08
PROVIDERS: ATTEND Physician Assistant Medical
DX: N61.1 Abscess of the breast and nipple (principal)

== ENCOUNTER → 2017-11-10 | Outpatient (CLI) | payer OTHER ==
--- NOTE | 2017-11-10 12:16 | DIAGNOSTIC IMAGING REPORT ---
SOFT TISSUE NECK WITHOUT CLINICAL HISTORY: R59.1 [id number] Facial edema pain. Edema. TECHNIQUE: Transaxial acquisition with multi axial reformatted images. COMPARISON STUDY: None FINDINGS: The major salivary glands including parotid and some mandibular glands are unremarkable. The sternocleidomastoid musculature is symmetric. Glottic and subglottic regions are unremarkable. There is no compromise of the airway. Several small shotty cervical nodes within the cervical chains bilaterally. These measure up to 6 mm on the right and 7 mm on the left. Bulky adenopathy is not appreciated. IMPRESSION: 1. Several small scattered nodes in the cervical chains bilaterally, which A reactive. 2. No evidence for significant or bulky cervical adenopathy. 3. No evidence for significant soft tissue edematous change. The above report was generated using voice recognition software. It may contain grammatical, syntax or spelling errors. Electronically signed by: Ren Tracy M.D. 11/10/2017 12:15 PM Dictated Date/Time: 11/10/2017 12:11 PM
== END | disposition home or self-care (01) ==
LOC: C.CTS 11:52
PROVIDERS: ATTEND Physician Assistant Medical
DX: R60.0 Localized edema (principal); R59.1 Generalized enlarged lymph nodes

== ENCOUNTER 2019-11-28 10:20 | Observation (INO) ==
--- NOTE | 2019-11-28 11:35 | Emergency Department Note ---
History of Present Illness General Chief complaint: Bradycardia Stated complaint: LOW HEART RATE, SOB, NAUSEA Time Seen by Provider: 11/28/19 11:13 Source: patient History of Present Illness Provider complaint: Low heart rate Onset (ago): month(s) 6 Location: chest Severity: severe Pain Consistency: + intermittent Maximum Pain Intensity: 0 Quality: + other (Down to the 30s) Relieved By: + none Associated symptoms: + chest pain, + diaphoresis, + headaches, + shortness of breath and + syncope; no cough and no fever/chills This is a 34-year-old female sent to the emergency department by her doctors office for evaluation of bradycardia. The patient states that she has had intermittent bradycardia for 6 months. Initially the bradycardia would occur once a month but then over the past 2 months became more frequent and would o ccur several times a week. Recently the bradycardia is occurring on a daily basis. She states that her Apple Watch tells her that her heart rate goes down to 38 at times. It occurred while she was sleeping at night yesterday. She also has times when she becomes very tachycardic and was seen here for it several months ago. She never followed up for a Holter monitor. She did see her doctor recently for fatigue and headache and had a COVID-19 test which was negative. She does state that 3 days ago she felt chest discomfort described as a squeezing in her chest with some shortness of breath and diaphoresis and had a syncopal episode. She was attempting to get to the couch but passed out. She believes she was bradycardic at the time. But she also states that she gets tachycardic sometimes and her heart rate has gone up to 210 according to her watch. She did hit the right side of her head when she fell as well as her shoulder and hip. She has a moderate headache but denies any shoulder or hip pain at this time. She has not passed out since. She did feel short of breath this morning and her heart rate was low at that time. She denies any leg swelling or pain other than chronic left leg swelling for the past 2 years which is unchanged. She states the whole left side of her body including her face and arm has been larger compared to the right side for 2 years. She had ultrasounds of the limbs without evidence of DVT. She does state that her father and her brother both had unprovoked DVTs. Her brother is 2 years older than her. Her uncle also of a heart attack in his 40s. Patient denies hormonal contraception use. She has had no prolonged immobilization. She denies any personal history of PE or DVT. She denies black or bloody stools. She is not currently having any chest discomfort and does not think she had any since Monday but is not sure. Home Medications Home Medications Medication Instructions Recorded Confirmed Type epinephrine [EpiPen] 0.3 mg IM DIRECTED PRN #0 04/13/16 11/28/19 History cyanocobalamin (vitamin B-12) 1,000 mcg IM WK #0 08/29/17 11/28/19 History blood sugar diagnostic #10 ea 11/05/18 09/11/19 History ergocalciferol (vitamin D2) 1,250 50,000 units PO WEEKLY #12 cap 11/05/18 11/28/19 History mcg (50,000 unit) capsule lancets 33 gauge #100 ea 11/05/18 09/11/19 History levothyroxine 200 mcg tablet 200 mcg PO DAILY #90 tab 11/05/18 11/28/19 Rx multivitamin 1 tab PO DAILY 11/05/18 11/28/19 History vitamin E (dl, acetate) 450 mg 1,000 units PO DAILY 01/14/19 11/28/19 History (1,000 unit) capsule cholecalciferol (vitamin D3) 125 7,000 units PO DAILY tab 05/17/19 11/28/19 History mcg (5,000 unit) tablet nystatin 100,000 unit/gram topical 1 appln TOP TID PRN #60 gm 08/13/19 11/28/19 Rx powder Allergies Allergy/AdvReac Type Severity Reaction Status Date / Time bee venom protein (honey bee) Allergy Intermediate SWELLING Verified 11/28/19 10:59 AND SHORTNESS OF BREATH Fish Containing Products Allergy Intermediate HIVES, Verified 11/28/19 10:59 ITCHING, SLIGHT DIFFICULTY BREATHING shellfish derived Allergy Intermediate HIVES, Verified 11/28/19 10:59 ITCHING, SLIGH DIFFICULTY BREATHING fish oil Allergy Mild HIVES, Verified 11/28/19 10:59 VOMITING adalimumab Allergy Unknown SWELLING Verified 11/28/19 10:59 AT INJECTION SITE certolizumab pegol Allergy Unknown swelling Unverified 11/28/19 10:59 baseball sized swelling infliximab Allergy Unknown migraines,itchiness, Verified 11/28/19 10:59 hair fallou sumatriptan [From Imitrex] Allergy Unknown mess with Verified 11/28/19 10:59 heart rate metronidazole AdvReac diarrhea, Verified 11/28/19 10:59 abdominal pain CONTRAST DYE Allergy Severe hives, Uncoded 11/28/19 10:59 throat swelled Past Med/Surg History Medical History Arthritis Asthma (11/07/12) Crohns disease Fibromyalgia Gastroparesis GERD (gastroesophageal reflux disease) (11/07/12) Hypertension Migraine (11/07/12) Morbid obesity (11/07/12) PTSD (post-traumatic stress disorder) Small bowel obstruction Thyroid dysfunction (11/07/12) Surgical History History of resection of terminal ileum 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 and A total of 10 systems reviewed and were otherwise negative Physical Exam Vital Signs Vital Signs - 24 hr 11/28/19 10:27 11/28/19 11:34 11/28/19 13:20 Temperature 36.7 C Temperature Source Oral Pulse Rate 70 Pulse Rate [Right Finger] 65 59 L Respiratory Rate 16 18 18 Respiratory Effort / Characteristics Non-Labored Spontaneous Non-Labored Spontaneous Respiratory Depth Normal Normal Respiratory Pattern Regular Blood Pressure 151/89 H Blood Pressure [Right Arm] 148/89 H 136/98 Blood Pressure Mean 109 Blood Pressure Mean [Right Arm] 108 110 Blood Pressure Position [Right Arm] Lying Lying Pulse Oximetry 100 100 99 Oxygen Delivery Method Room Air Room Air Room Air Sepsis Recent Fever Within 48 Hours No Sepsis New/Unexplained Change in Mental Status N/A Sepsis Action Taken by Nursing No Action Required 11/28/19 15:07 11/28/19 16:38 11/28/19 16:57 Temperature Temperature Source Pulse Rate Pulse Rate [Right Finger] 65 66 Respiratory Rate 18 18 Respiratory Effort / Characteristics Non-Labored Respiratory Depth Normal Respiratory Pattern Blood Pressure Blood Pressure [Right Arm] 148/106 H 122/89 Blood Pressure Mean Blood Pressure Mean [Right Arm] 120 100 Blood Pressure Position [Right Arm] Pulse Oximetry 99 96 Oxygen Delivery Method Room Air Room Air Room Air Sepsis Recent Fever Within 48 Hours Sepsis New/Unexplained Change in Mental Status Sepsis Action Taken by Nursing Constitutional: Vital signs reviewed. Eyes: Pupils are equal round reactive to light. Conjunctiva are noninjected. ENT: Pharynx is clear without erythema or exudate. Mucous membranes are moist. Neck supple without meningeal signs. Respiratory: Clear to auscultation bilaterally. Breath sounds are equal bilaterally. Cardiovascular: Regular rate and rhythm. No rubs or gallops. GI: Soft, nondistended and nontender. Bowel sounds are present. Musculoskeletal: No peripheral edema. No lower extremity tenderness. Integumentary: No cyanosis. or jaundice. Neurological: The patient is awake and alert. No focal deficits. Psychiatric: Normal affect. Not anxious appearing. Course Administered Medications Discontinued Medications Trimethoprim/Sulfamethoxazole (Sulfamethoxazole/Trimethoprim Ds 800/160mg Tab) 1 tab PO NOW ONE Stop: 11/28/19 13:44 Last Admin: 11/28/19 13:53 Dose: 1 tab Documented by: [id number] Medical Decision Making Differential Diagnosis DVT, PE, tachybradycardia syndrome, SVT, metabolic derangement, electrolyte abnormality Medical Records Attestation: I reviewed the patient's medical records. The patient was seen here in September for tachycardia. She had a work-up here which was unremarkable and was discharged for outpatient Holter monitor. She was seen by her doctor earlier this month and had a negative COVID-19 test. Home Medications Current Medication List: was personally reviewed by me Laboratory Data Attestation: I reviewed the patient's lab results. Result diagrams: 11/28/19 11:41 11/28/19 11:40 Lab Results 11/28/19 11/28/19 11/28/19 Range/Units 11:40 11:40 11:40 WBC (4.8-10.8) K/uL RBC (4.2-5.4) M/uL Hgb (12.0-16.0) g/dL Hct (37-47) % MCV (80-100) fL MCH (25-34) pg MCHC (32-36) g/dL RDW Std Deviation (36.4-46.3) fL RDW Coeff of Pepe (11.5-14.5) % Plt Count (130-400) K/uL MPV (7.4-10.4) fL Immature Gran % (Auto) % Neut % (Auto) % Lymph % (Auto) % [place] % (Auto) % Eos % (Auto) % Baso % (Auto) % Neut # (Auto) (1.4-6.5) K/uL Lymph # (Auto) (1.2-3.4) K/uL [place] # (Auto) (0.11-0.59) K/uL Eos # (Auto) (0-0.5) K/uL Baso # (Auto) (0-0.2) K/uL Immature Gran # (Auto) (0.00-0.02) K/uL PT 11.1 (9.0-12.0) Seconds INR 1.1 (0.9-1.1) APTT 29.9 (21.0-31.0) Seconds PTT Ratio 1.1 D-Dimer 340 (0-500) ug/L FEU Sodium 140 (136-145) mmol/L Potassium 3.6 (3.5-5.1) mmol/L Chloride 107 (98-107) mmol/L Carbon Dioxide 28 (21-32) mmol/L Anion Gap 5.0 (3-11) BUN 8 (7-18) mg/dl Creatinine 1.02 (0.6-1.2) mg/dl Est Cr Clr Drug Dosing 116.1 ml/min Est GFR ( Amer) 82.0 Est GFR (Non-Af Amer) 70.7 BUN/Creatinine Ratio 7.9 L (10-20) Glucose 85 (70-99) mg/dl Calcium 9.2 (8.5-10.1) mg/dl Magnesium 2.2 (1.8-2.4) mg/dl Total Bilirubin 0.7 (0.2-1) mg/dl AST 10 L (15-37) U/L ALT 13 (12-78) U/L Alkaline Phosphatase 116 (45-117) U/L Troponin I < 0.015 (0-0.045) ng/ml Total Protein 8.3 H (6.4-8.2) gm/dl Albumin 3.9 (3.4-5.0) gm/dl Globulin 4.4 H (2.5-4.0) gm/dl Albumin/Globulin Ratio 0.9 (0.9-2) TSH 7.450 H (0.300-4.500) uIu/ml Free T4 0.86 (0.8-1.6) ng/dl HCG, Qual Negative (Negative) Urine Color Urine Appearance (Clear) Urine pH (4.5-7.5) Ur Specific Tennyson (1.000-1.030) Urine Protein (Negative) Urine Glucose (UA) (Negative) Urine Ketones (Negative) Urine Blood (Negative) Urine Nitrite (Negative) Urine Bilirubin (Negative) Urine Urobilinogen (Negative) Ur Leukocyte Esterase (Negative) Urine WBC (Auto) (0-5) /hpf Urine RBC (Auto) (0-4) /hpf U Hyaline Cast (Auto) (0-5) /lpf U Epithel Cells (Auto) (0-5) /lpf Urine Bacteria (Auto) (Negative) Anaplasma Smear 11/28/19 11/28/19 11/28/19 Range/Units 11:41 11:41 11:41 WBC 6.83 (4.8-10.8) K/uL RBC 5.33 (4.2-5.4) M/uL Hgb 15.5 (12.0-16.0) g/dL Hct 46.0 (37-47) % MCV 86.3 (80-100) fL MCH 29.1 (25-34) pg MCHC 33.7 (32-36) g/dL RDW Std Deviation 41.2 (36.4-46.3) fL RDW Coeff of Pepe 13.1 (11.5-14.5) % Plt Count 310 (130-400) K/uL MPV 10.8 H (7.4-10.4) fL Immature Gran % (Auto) 0.1 % Neut % (Auto) 69.6 % Lymph % (Auto) 22.1 % [place] % (Auto) 5.9 % Eos % (Auto) 2.2 % Baso % (Auto) 0.1 % Neut # (Auto) 4.75 (1.4-6.5) K/uL Lymph # (Auto) 1.51 (1.2-3.4) K/uL [place] # (Auto) 0.40 (0.11-0.59) K/uL Eos # (Auto) 0.15 (0-0.5) K/uL Baso # (Auto) 0.01 (0-0.2) K/uL Immature Gran # (Auto) 0.01 (0.00-0.02) K/uL PT (9.0-12.0) Seconds INR (0.9-1.1) APTT (21.0-31.0) Seconds PTT Ratio D-Dimer (0-500) ug/L FEU Sodium (136-145) mmol/L Potassium (3.5-5.1) mmol/L Chloride (98-107) mmol/L Carbon Dioxide (21-32) mmol/L Anion Gap (3-11) BUN (7-18) mg/dl Creatinine (0.6-1.2) mg/dl Est Cr Clr Drug Dosing ml/min Est GFR ( Amer) Est GFR (Non-Af Amer) BUN/Creatinine Ratio (10-20) Glucose (70-99) mg/dl Calcium (8.5-10.1) mg/dl Magnesium (1.8-2.4) mg/dl Total Bilirubin (0.2-1) mg/dl AST (15-37) U/L ALT (12-78) U/L Alkaline Phosphatase (45-117) U/L Troponin I (0-0.045) ng/ml Total Protein (6.4-8.2) gm/dl Albumin (3.4-5.0) gm/dl Globulin (2.5-4.0) gm/dl Albumin/Globulin Ratio (0.9-2) TSH (0.300-4.500) uIu/ml Free T4 (0.8-1.6) ng/dl HCG, Qual (Negative) Urine Color Dark Yellow Urine Appearance Turbid A (Clear) Urine pH 5.5 (4.5-7.5) Ur Specific Tennyson 1.018 (1.000-1.030) Urine Protein Negative (Negative) Urine Glucose (UA) Negative (Negative) Urine Ketones 1+ H (Negative) Urine Blood Trace H (Negative) Urine Nitrite Positive A (Negative) Urine Bilirubin Negative (Negative) Urine Urobilinogen Negative (Negative) Ur Leukocyte Esterase 2+ H (Negative) Urine WBC (Auto) >30 H (0-5) /hpf Urine RBC (Auto) 5-10 H (0-4) /hpf U Hyaline Cast (Auto) 0 (0-5) /lpf U Epithel Cells (Auto) >30 H (0-5) /lpf Urine Bacteria (Auto) 4+ H (Negative) Anaplasma Smear See Comment Imaging Data Radiologist's Impression: CT head/brain wo con CLINICAL HISTORY: 34 years-old Female with fall eval for bleed. Acute head in jury TECHNIQUE: Multiple axial CT images of the head were obtained without contrast. A dose lowering technique was utilized adhering to the principles of ALARA. CT DOSE: 537.48 mGy.cm COMPARISON: None. FINDINGS: No acute intracranial hemorrhage, midline shift, intracranial mass, hydrocepha yin, territorial ischemia or abnormal extra-axial collection. The calvarium is intact. The paranasal sinuses, mastoid air cells, and middle ear cavities are clear. IMPRESSION: No acute intracranial abnormality or calvarial fracture. ACT 112: Negative or not required by law. The above report was generated using voice recognition software. It may contain grammatical, syntax or spelling errors. Electronically signed by: Hesham Brito M.D. 11/28/2019 12:56 PM XR chest 2V PA/lateral HISTORY: 34 years-old Female sob eval for pna acute shortness of breath COMPARISON: Chest radiograph 09/26/2019 TECHNIQUE: PA and lateral views of the chest FINDINGS: Cardiomediastinal and hilar silhouettes are within normal limits. There is no pneumothorax, pleural effusion, airspace consolidation or overt pulmonary edema. Cholecystectomy. Bones of the chest appear grossly intact. IMPRESSION: No acute process. ACT 112: Negative or not required by law. The above report was generated using voice recognition software. It may contain grammatical, syntax or spelling errors. Electronically signed by: Hesham Brito M.D. 11/28/2019 1:19 PM ECG Data Attestation: I personally reviewed and interpreted this ECG as follows: Indication: + chest pain Rate (beats per minute): 62 Rhythm: + normal sinus ECG Intervals/blocks: + Normal QRS ECG ST segments: no ST elevation ECG Findings: no PVCs Blood Pressure Blood Pressure Findings: Elevated blood pressure Blood Pressure Disposition: Referred to patients primary care provider Head Trauma GCS Score: 15 MDM Narrative I did evaluate the patient as noted above. The patient is presenting with episodes of bradycardia and tachycardia. She states that 3 days ago she passed out and hit her head. She is neurologically intact but complaining of a headache. IV access was established. I did place an order for continuous cardiac monitoring. The monitor showed normal sinus rhythm at a rate of 66 bpm. I did order and personally review the patient's 12-lead EKG as described above. She has no signs of heart block or bradycardia or tachycardia. No ischemic changes are noted. I did order and personally reviewed the images of the patient's chest x-ray as described above. There is no evidence of pneumonia. I did order a urine analysis. She does appear to have an infection. She does complain of some dysuria and states that she was treated for bacterial vaginosis several weeks ago. I did treat her with Bactrim p.o. I did order and review the patient's blood work as noted in the electronic medical record. Her CBC is unremarkable without leukocytosis or anemia. Electrolytes are unremarkable. TSH is elevated but free T4 is within normal limits. Troponin is negative. D- dimer is negative. I did order a CT of the head. I did review the images myself as well as the radiology report as described above. There is no evidence of acute intracranial process. I did discuss the test results with the patient. At this time I did not feel she needed a CT of the chest to rule out PE given a negative d-dimer. She has not had any chest pain since 3 days ago. She is not tachycardic or hypoxemic here. Should this change she may require CT later during the course of her hospitalization. I did discuss the case with the hospitalist and binder caser. Impression & Plan Bradycardia, Syncope, Head injury, Chest pain, Tachycardia, Acute UTI Discharge Plan Visit Data Chief Complaint: Bradycardia Stated Complaint: LOW HEART RATE, SOB, NAUSEA ED Provider: Sammy Tomas Discharge Problem: Bradycardia, Syncope, Head injury, Chest pain, Tachycardia, Acute UTI Patient Disposition: Being Evaluated by Hospitalist Discharge Instructions Interventions: ED Discharge Assessment Last Done: 11/28/19 16:57 Forms Stand Alone Forms: My [facility] Prescriptions Prescriptions: No Action epinephrine [EpiPen] 0.3 mg/0.3 mL Auto-Injector 0.3 mg IM DIRECTED PRN (Reason: Allergic Reaction) Qty: 0 RF: 0 cyanocobalamin (vitamin B-12) 1,000 mcg/mL Solution 1,000 mcg IM WK Qty: 0 RF: 0 cholecalciferol (vitamin D3) 125 mcg (5,000 unit) tablet 7,000 units PO DAILY RF: 0 nystatin 100,000 unit/gram powder 1 appln TOP TID PRN (Reason: abscess) Qty: 60 RF: 1 multivitamin [Multiple Vitamins] tablet 1 tab PO DAILY RF: 0 (DME) lancets [OneTouch Delica Lancets] 33 gauge misc See Dose Instructions .ROUTE .MEDSUPPLY Qty: 100 RF: 0 (DME) OneTouch Verio test strips strip See Dose Instructions .ROUTE .MEDSUPPLY Qty: 10 RF: 0 ergocalciferol (vitamin D2) 50,000 unit capsule 50,000 units PO WEEKLY Qty: 12 RF: 0 levothyroxine 200 mcg tablet 200 mcg PO DAILY Qty: 90 RF: 3 vitamin E (dl, acetate) 1,000 unit capsule 1,000 units PO DAILY RF: 0 Referrals Referrals: Nae Osborn MD [Primary Care Provider] -
[2019-11-28 11:54] LABS: Basophils # (auto) 0.01 K/uL (0-0.2); Basophils % (auto) 0.1 %; Eosinophils # (auto) 0.15 K/uL (0-0.5); Eosinophils % (auto) 2.2 %; Hemoglobin 15.5 g/dL (12.0-16.0); Immature Granulocytes # (auto) 0.01 K/uL (0.00-0.02); Immature Granulocytes % (auto) 0.1 %; Lymphocytes # (auto) 1.51 K/uL (1.2-3.4); Lymphocytes % (auto) 22.1 %; Mean Corpuscular Hemoglobin 29.1 pg (25-34); Mean Corpuscular Hgb Conc 33.7 g/dL (32-36); Mean Corpuscular Volume 86.3 fL (80-100); Mean Platelet Volume 10.8 fL (7.4-10.4); Monocytes % (auto) 5.9 %; Neutrophils # (auto) 4.75 K/uL (1.4-6.5); Neutrophils % (auto) 69.6 %; Platelet Count 310 K/uL (130-400); RDW Coefficient of Variation 13.1 % (11.5-14.5); RDW Standard Deviation 41.2 fL (36.4-46.3); Red Blood Count 5.33 M/uL (4.2-5.4); White Blood Count 6.83 K/uL (4.8-10.8)
[2019-11-28 12:11] LABS: Alanine Aminotransferase 13 U/L (12-78); Albumin Level 3.9 gm/dl (3.4-5.0); Aspartate Aminotransferase 10 U/L (15-37); BUN Creatinine Ratio 7.9 (10-20); Blood Urea Nitrogen 8 mg/dl (7-18); Calcium 9.2 mg/dl (8.5-10.1); Carbon Dioxide 28 mmol/L (21-32); Chloride 107 mmol/L (98-107); Creatinine Clr Calc Pharmacy 116.1 ml/min; Est GFR (Non-African American) 70.7; Glucose 85 mg/dl (70-99); Magnesium 2.2 mg/dl (1.8-2.4); Potassium 3.6 mmol/L (3.5-5.1); Sodium 140 mmol/L (136-145)
[2019-11-28 12:12] LABS: D Dimer 340 ug/L FEU (0-500); INR 1.1 (0.9-1.1); Partial Thromboplastin Ratio 1.1; Partial Thromboplastin Time 29.9 Seconds (21.0-31.0); Prothrombin Time 11.1 Seconds (9.0-12.0)
[2019-11-28 12:19] LABS: Appearance Urine Turbid (Clear); Bacteria Urine Automated 4+ (Negative); Bilirubin Urine Negative (Negative); Blood Urine Trace (Negative); Color Urine Dark Yellow; Epithelial Cell Urine Auto >30 /lpf (0-5); Glucose Urine UA Negative (Negative); Ketones Urine 1+ (Negative); Leukocyte Esterase Urine 2+ (Negative); Nitrite Urine Positive (Negative); Protein Urine Negative (Negative); Specific Gravity Urine 1.018 (1.000-1.030); Urobilinogen Urine Negative (Negative); WBC Urine Automated >30 /hpf (0-5); pH Urine 5.5 (4.5-7.5)
[2019-11-28 12:21] LABS: Pregnancy Test, Serum Negative (Negative)
[2019-11-28 12:22] LABS: Albumin Globulin Ratio 0.9 (0.9-2); Alkaline Phosphatase 116 U/L (45-117); Bilirubin,Total 0.7 mg/dl (0.2-1); Globulin 4.4 gm/dl (2.5-4.0); Total Protein 8.3 gm/dl (6.4-8.2); Troponin I < 0.015 ng/ml (0-0.045)
[2019-11-28 12:35] LABS: T4 Free Thyroxine 0.86 ng/dl (0.8-1.6)
--- NOTE | 2019-11-28 12:57 | CT Scan Report ---
CT head/brain wo con CLINICAL HISTORY: 34 years-old Female with fall eval for bleed. Acute head injury TECHNIQUE: Multiple axial CT images of the head were obtained without contrast. A dose lowering tech nique was utilized adhering to the principles of ALARA. CT DOSE: 537.48 mGy.cm COMPARISON: None. FINDINGS: No acute intracranial hemorrhage, midline shift, intracranial mass, hydrocephalus, territorial ischem ia or abnormal extra-axial collection. The calvarium is intact. The paranasal sinuses, mastoid air cells, and middle ear cavities are clear . IMPRESSION: No acute intracranial abnormality or calvarial fracture. ACT 112: Negative or not required by law. The above report was generated using voice recognition software. It may contain grammatical, syntax o r spelling errors. Electronically signed by: Hesham Brito M.D. 11/28/2019 12:56 PM
--- NOTE | 2019-11-28 13:20 | XRay Report ---
XR chest 2V PA/lateral HISTORY: 34 years-old Female sob eval for pna acute shortness of breath COMPARISON: Chest radiograph 09/26/2019 TECHNIQUE: PA and lateral views of the chest FINDINGS: Cardiomediastinal and hilar silhouettes are within normal limits. There is no pneumothorax, pleural e ffusion, airspace consolidation or overt pulmonary edema. Cholecystectomy. Bones of the chest appear grossly intact. IMPRESSION: No acute process. ACT 112: Negative or not required by law. The above report was generated using voice recognition software. It may contain grammatical, syntax o r spelling errors. Electronically signed by: Hesham Brito M.D. 11/28/2019 1:19 PM
[2019-11-28] MEDS ORDERED: SULFAMETHOXAZOLE/TRIMETHOPRIM DS 800/160MG TAB PO ONE (13:43)
[2019-11-28 13:50] LABS: Cast Urine Automated 0 /lpf (0-5)
--- NOTE | 2019-11-28 15:16 | History & Physical Report ---
Date of Service November 28, 2019 Assessment & Plan (1) Bradycardia: -[facility] observation - EKG reviewed and is normal sinus rhythm, heart rate in the mid 60s. No acute findings concerning for ACS. Patient does complain of intermittent chest pain with and without exertion- ? Stress and anxiety related -Check troponin x1 more set, initial was negative -Cardiology consulted, question node dysfunction with episodes of tachycardia and bradycardia intermittently, ? temporary pacemaker insertion -Patient did not wear a Holter monitor, would recommend this on discharge if no further intervention warranted during this admission -Patient not on beta-blockers which would precipitate bradycardia -TSH is elevated = 7.450, free T4 normal, adjust levothyroxine per PCP -Lyme's titer, Ehrlichia, anaplasmosis test sent (2) Hypertension: -Monitor, BP 148/106 at bedside, heart rate remains in the mid 60s, does not appear to be on outpatient antihypertensives (3) Metabolic syndrome: -Chronic (4) Hypothyroidism: -Continue levothyroxine 200 mcg daily (5) Depression with anxiety: -Not on antidepressants, will need further discussion regarding depressive symptoms/anxiety while here in the hospital, consider initiation of sertraline as this is weight neutral, and unlikely to affect metabolic syndrome (6) Vitamin D deficiency: -Takes supplementation biweekly (7) Morbid obesity: - BMI 41.5-diet and exercise to be encouraged prior to discharge (8) GERD (gastroesophageal reflux disease): - not on PPI or H2-pravin - monitor (9) Crohns disease: -Patient reports having failed Remicade, Humira, symposi, but is anticipating a trial of Stelara as an outpatient, not currently on any immunosuppressants/biologic agents -No recent flares, patient does admit to having LUQ pain, with deep palpation, denies bloody stools, diarrhea or constipation. This was worse a few weeks ago where PCP checked outpatient stool studies which were negative (10) DVT prophylaxis: - teds, heparin subcu CODE: Full code Dispo: From home, likely to remain in the hospital x 1 day History of Present Illness Primary Care Provider: Nae Osborn MD This is a 34-year-old female with PMHx of HTN, HLD, morbid obesity with BMI 41.5, Crohn's disease, gastroparesis, GERD, migraine, asthma, fibromyalgia, metabolic syndrome, hypothyroidism, vitamin D deficiency and history of tachycardia who presents after having alerts on her apple watch showing bradycardia on 2 separate occasions last night, with heart rates in the high 30s to low 40s. She feels that she has had increased fatigue, lightheadedness, and intermittent left-sided chest pain more so within the past few days. On Monday she reports syncopal episode where she had preceding lightheadedness and fell to the ground, did not sustain any injury to the head, but came to quickly. Today she reports having chest pain at present rated a 5/10 on the left chest wall underneath her breast. Chest pain presents with rest at present, but pain is interchangeable with rest sometimes and on exertion other times. She also reports intermittent headaches which she treats with Tylenol and an occasional NSAID (as she states is not supposed to use NSAIDs with Crohn's disease) which occurred more frequently this week. Within the last few months she was worked up for tachycardia without significant findings, and was told to wear a Holter mon itor but did not get this set up as an outpatient. She does not follow with cardiology routinely. Patient reports poor oral intake, lack of appetite within the past few days, and is sipping water at bedside. Denies nausea, vomiting, diarrhea, constipation. She was recently screened by her PCP for COVID-19 which was negative. She feels a great amount of stress at home but does not delve into the details. She feels her health has gone downhill in the last few months overall. She reports "I have had a 2020 sort of life" in reference to the COVID-19 pandemic currently going on. Upon asking her about resuscitation status she states "full code but I thought about that several times in the last few months, but I have children so I have to say yes", and becomes teary-eyed with those words. Family history: Her mother has history of heart disease, uncle of [place] in late 40s/early 50s, father with history of PE and brother with history of unprovoked PE. She does not smoke or drink alcohol. Allergies Allergy/AdvReac Type Severity Reaction Status Date / Time bee venom protein (honey bee) Allergy Intermediate SWELLING Verified 11/28/19 10:59 AND SHORTNESS OF BREATH Fish Containing Products Allergy Intermediate HIVES, Verified 11/28/19 10:59 ITCHING, SLIGHT DIFFICULTY BREATHING shellfish derived Allergy Intermediate HIVES, Verified 11/28/19 10:59 ITCHING, SLIGH DIFFICULTY BREATHING fish oil Allergy Mild HIVES, Verified 11/28/19 10:59 VOMITING adalimumab Allergy Unknown SWELLING Verified 11/28/19 10:59 AT INJECTION SITE certolizumab pegol Allergy Unknown swelling Unverified 11/28/19 10:59 baseball sized swelling infliximab Allergy Unknown migraines,itchiness, Verified 11/28/19 10:59 hair fallou sumatriptan [From Imitrex] Allergy Unknown mess with Verified 11/28/19 10:59 heart rate metronidazole AdvReac diarrhea, Verified 11/28/19 10:59 abdominal pain CONTRAST DYE Allergy Severe hives, Uncoded 11/28/19 10:59 throat swelled Home Medications Home Medications Medication Instructions Recorded Confirmed Type epinephrine [EpiPen] 0.3 mg IM DIRECTED PRN #0 04/13/16 11/28/19 History cyanocobalamin (vitamin B-12) 1,000 mcg IM DAILY #0 08/29/17 11/28/19 History blood sugar diagnostic #10 ea 11/05/18 09/11/19 History ergocalciferol (vitamin D2) 1,250 50,000 units PO WEEKLY #12 cap 11/05/18 11/28/19 History mcg (50,000 unit) capsule lancets 33 gauge #100 ea 11/05/18 09/11/19 History levothyroxine 200 mcg tablet 200 mcg PO DAILY #90 tab 11/05/18 11/28/19 Rx multivitamin 1 tab PO DAILY 11/05/18 11/28/19 History vitamin E (dl, acetate) 450 mg 1,000 units PO DAILY 01/14/19 11/28/19 History (1,000 unit) capsule cholecalciferol (vitamin D3) 125 7,000 units PO DAILY tab 05/17/19 11/28/19 History mcg (5,000 unit) tablet nystatin 100,000 unit/gram topical 1 appln TOP TID PRN #60 gm 08/13/19 11/28/19 Rx powder Past Med/Surg History Medical History Arthritis Asthma (11/07/12) Crohns disease Fibromyalgia Gastroparesis GERD (gastroesophageal reflux disease) (11/07/12) Hypertension Migraine (11/07/12) Morbid obesity (11/07/12) PTSD (post-traumatic stress disorder) Small bowel obstruction Thyroid dysfunction (11/07/12) Surgical History History of resection of terminal ileum 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 [facility] History of surgical removal of skin lesion finger Hx of appendectomy Hx of cholecystectomy Family History Father Hypertension Dyslipidemia Diabetes Sleep apnea Mother Hypertension Aunt Breast cancer Ovarian cancer Grandfather (Paternal) Lung cancer Other Colorectal cancer Denies family history of Prostate cancer Social History Smoking Status: Never smoker Hx Alcohol Use: Yes Alcohol type: wine Hx Substance Use: Yes Last Used Substance: Days (ago) Last Used Substance Other:: March 2019 Substance Use Type Other:: Has medical marijuana Preferred Language: [place] Visual Impairment: Limited Hearing Ability: Normal Operation Research Analyst Required: No Beliefs That Will Affect Care: None marital status: Current Living Situation: Spouse and Family current occupational status: unemployed Feels Safe at Home: Yes Safety Concerns: Feels Safe At This Time caffeine: No Dental Care, Regularly: Yes Physical Activity Frequency: Daily Seatbelt Use: always Sunscreen Use: Yes Review of Systems Review of Systems: Constitutional: No fever, sweats or chills, + headache Eyes: No diplopia, no worsening or blurred vision ENT: normal hearing, no trouble swallowing Respiratory: No cough, sputum, dyspnea at rest or on exertion Cardiovascular: As per HPI, + left-sided chest pain, rated 5/10, no tightness or palpitations Abdomen: + Crohn's disease, + mild left upper quadrant pain, no nausea, vomiting, diarrhea or constipation Musculoskeletal: No joint pain, calf pain, swelling Neurologic: No weakness, numbness/tingling, or balance problems Psychiatric: + Anxiety and depression Skin: No rash or itch Physical Exam Physical Exam: General: awake, alert, no apparent distress, morbidly obese with BMI 41.5 Head: Normocephalic, atraumatic ENT: PERRL, EOMI, no pharyngeal exudate, mucous membranes moist Chest: Clear to auscultation, on room air, no adventitious breath sounds Cardiac: Regular rate and rhythm, no murmur, no JVD, normal peripheral pulses, good capillary refill Abdominal: NABS x 4 quadrants, soft, nondistended, + tender in LUQ to deep palpation, no rebound, guarding or tenderness Extremities: Normal inspection, no peripheral edema or erythema, calfs nontender to palpation Psych: + Depressed mood and flat affect Neuro: AAO x 3, strength intact bilaterally and rated 5/5, no motor deficits, speech is clear, no peripheral sensory deficits Skin: no rash or erythema Results & Data Results & Data ([facility]) Vital Signs (Past 12 Hours) Vital Signs Temp Pulse Pulse Resp BP BP Pulse Ox 11/28/19 15:07 65 18 148/106 H 99 11/28/19 13:20 59 L 18 136/98 99 11/28/19 11:34 65 18 148/89 H 100 11/28/19 10:27 36.7 C 70 16 151/89 H 100 Diagnostic Findings XR chest 2V PA/lateral HISTORY: 34 years-old Female sob eval for pna acute shortness of breath COMPARISON: Chest radiograph 09/26/2019 TECHNIQUE: PA and lateral views of the chest FINDINGS: Cardiomediastinal and hilar silhouettes are within normal limits. There is no pneumothorax, pleural effusion, airspace consolidation or overt pulmonary edema. Cholecystectomy. Bones of the chest appear grossly intact. IMPRESSION: No acute process. CT head/brain wo con CLINICAL HISTORY: 34 years-old Female with fall eval for bleed. Acute head injury TECHNIQUE: Multiple axial CT images of the head were obtained without contrast. A dose lowering technique was utilized adhering to the principles of ALARA. CT DOSE: 537.48 mGy.cm COMPARISON: None. FINDINGS: No acute intracranial hemorrhage, midline shift, intracranial mass, hydrocephalus, territorial ischemia or abnormal extra-axial collection. The calvarium is intact. The paranasal sinuses, mastoid air cells, and middle ear cavities are clear. IMPRESSION: No acute intracranial abnormality or calvarial fracture. ECG Additional Comments: 28-NOV-2019 10:48:55 [facility]-EDSTAT ROUTINE RETRIEVAL Normal sinus rhythm Normal ECG When compared with ECG of 26-SEP-2019 13:53, No significant change was found 25mm/s 10mm/mV 150Hz 9.0.9 12SL 241 GUERO: 13 Referred by: REFERRED SELF Unconfirmed Vent. rate 62 BPM DE interval 162 ms QRS duration 94 ms QT/QTc 416/422 ms P-R-T axes 23 25 30 Code Status & VTE Plan Code Status Full code -discussed with the patient at bedside Supervising Physician Co-Signing Physician Notes Attending Attestation & Admit Note: Pt seen/examined, chart reviewed, care plan d/w KAILEE Phillips. I agree w/ the hamilton components of her documentation. 34yo female - h/o gastric bypass procedure, Crohn's disease, hypothyroidism - p resents with syncopal episode several days ago. She also wears an Apple Watch and this recorded 2 episodes of sustained bradycardia while sleeping (HR in 40s for >10 minutes). Syncopal episode was preceded by prodromal symptoms. PMH, PSH, allergies, meds, sochx, famhx - reviewed VSS, no bradycardia since arrival to [facility] gen - nad, obese neck - no JVD heart - RRR, s1 s2, no murmur lungs - cta b/l abd - soft NT ND BS+ ext - no edema labs, imaging, EKG - reviewed A/P: 1. nocturnal bradycardia - due to ARISTIDES?? recommend overnight oximetry study while here and/or outpatient formal sleep study. Observe on telemetry. TSH mildly elevated - that certainly could contribute to low-normal HRs but not 30s/40s. 2. syncope - vasovagal spells? she has typical prodromal lightheaded, dizziness, etc then passes out. could consider tilt table test. echo. check formal orthostatics. 3. UTI - rocephin, follow culture. 4. b12 def in setting of gastric bypass status and terminal ileum resection presumably due to Crohn's - b12 injections. 5. crohn's - needs to reestablish care with GI locally. Hadley Wilks MD PG Care Time/CCT Total # of Minutes Spent Total Time Spent with Patient: Total time spent is greater than 50% in coordination of care (as documented) at patient's floor/unit and/or counseling patient: Coding Level of Care Code 18573 OBS Care - Level 3 Diagnoses Bradycardia R00.1 Hypertension I10 Metabolic syndrome E88.81 Hypothyroidism E03.9 Depression with anxiety F41.8 Vitamin D deficiency E55.9 Morbid obesity E66.01 GERD (gastroesophageal reflux disease) K21.9 Crohns disease K50.90 DVT prophylaxis Z29.9
[2019-11-28] MEDS ORDERED: ONDANSETRON INJ 2 MG/ML 2 ML VIAL IV PRN (17:42)
[2019-11-28 18:42] LABS: Lyme Ab IgG w/WB Rflx Negative (Negative); Lyme Ab IgM w/WB Rflx Negative (Negative)
[2019-11-28] MEDS: cefTRIAXone SODIUM 2,000 MG in DEXTROSE 5% 50 ML IV SCH (18:58)
[2019-11-28] MEDS: HEPARIN SOD 5,000 UNIT/0.5 ML VIAL SQ SCH (21:40)
[2019-11-29] MEDS: HEPARIN SOD 5,000 UNIT/0.5 ML VIAL SQ SCH ×3 (05:46→21:27)
[2019-11-29] MEDS: LEVOTHYROXINE SODIUM 200 MCG TABLET PO SCH (05:47)
--- NOTE | 2019-11-29 06:28 | Electrocardiogram Report ---
Test Reason : Blood Pressure : / mmHG Vent. Rate : 062 BPM Atrial Rate : 062 BPM P-R Int : 162 ms QRS Dur : 094 ms QT Int : 416 ms P-R-T Axes : 023 025 030 degrees QTc Int : 422 ms Normal sinus rhythm Normal ECG When compared with ECG of 26-SEP-2019 13:53, No significant change was found Confirmed by Román Vines ([id number]) on 11/29/2019 6:28:06 AM Referred By: REFERRED SELF Confirmed By:Román Vines
[2019-11-29 07:07] LABS: Hematocrit (blood only) 39.9 % (37-47); Mean Corpuscular Hemoglobin 28.2 pg (25-34); Mean Corpuscular Hgb Conc 32.6 g/dL (32-36); Mean Corpuscular Volume 86.6 fL (80-100); Mean Platelet Volume 10.9 fL (7.4-10.4); Platelet Count 259 K/uL (130-400); RDW Coefficient of Variation 13.2 % (11.5-14.5); RDW Standard Deviation 41.9 fL (36.4-46.3); Red Blood Count 4.61 M/uL (4.2-5.4); White Blood Count 6.36 K/uL (4.8-10.8)
[2019-11-29 07:51] LABS: Albumin Globulin Ratio 0.8 (0.9-2); Albumin Level 3.1 gm/dl (3.4-5.0); BUN Creatinine Ratio 10.4 (10-20); Bilirubin,Total 0.6 mg/dl (0.2-1); Calcium 8.4 mg/dl (8.5-10.1); Creatinine Clr Calc Pharmacy 116.8 ml/min; Est GFR (Non-African American) 70.7; Globulin 3.7 gm/dl (2.5-4.0); Potassium 3.6 mmol/L (3.5-5.1); Total Protein 6.8 gm/dl (6.4-8.2)
--- NOTE | 2019-11-29 08:09 | Hospitalist Progress Note ---
Date of Service November 29, 2019 Assessment & Plan (1) Bradycardia: -Cardiology is seen the patient and feels no concern for in hospital inventions will follow-up as an outpatient - EKG reviewed and is normal sinus rhythm, heart rate in the mid 60s. -Checked troponin trend has been negative -TSH is elevated = 7.450, free T4 normal, adjust levothyroxine per PCP -Lyme's titer negative, , anaplasmosis) negative (2) Hypertension: No need for additional treatment pressures remained stable (3) Metabolic syndrome: -Chronic (4) Hypothyroidism: -Continue levothyroxine 200 mcg daily (5) Depression with anxiety: -Not on antidepressants, will need further discussion regarding depressive symptoms/anxiety while here in the hospital, consider initiation of sertraline as this is weight neutral, and unlikely to affect metabolic syndrome (6) Vitamin D deficiency: -Takes supplementation biweekly (7) Morbid obesity: - BMI 41.5-diet and exercise to be encouraged prior to discharge (8) GERD (gastroesophageal reflux disease): - not on PPI or H2-pravin - monitor (9) Crohns disease: -Patient reports having failed Remicade, Humira, symposi, but is antic ipating a trial of Stelara as an outpatient, not currently on any immunosuppressants/biologic agents -No recent flares, with abdominal pain we performed CT scan of abdomen pelvis with contrast without any evidence of Crohn's flares at this time (10) DVT prophylaxis: - teds, heparin subcu CODE: Full code Dispo: From home, likely to remain in the hospital x 1 day Admission and Anticipated Discharge Date Admission Date: November 28, 2019 Subjective Patient had no other symptoms of lightheadedness. She is complaining of a headache which sound to be tension related is more bilateral frontal headache and also base of her skull. The patient said no visual changes with it or nausea. The patient is complaining of some left-sided abdominal pain is concerned about her Crohn's disease. A recent CT scan performed today on 11/28 without any evidence of bowel inflammation. Patient multiple somatic complaints was seen in consultation by cardiology no in hospital intervention is required Review of Systems Review of Systems: Mild distress and fatigue Bifrontal and occipital headache, without blurry or double vision no speech or swallowing issues no chest pain, pressure or palpitations no shortness of breath, cough or wheezes In her left upper quadrant abdominal pain, without nausea or vomiting, diarrhea or constipation no dysuria, hematuria or frequency no focal joint pain or swelling no back pain, CVA tenderness or radicular pain no bruising, bleeding or rashes no focal signs of weakness or numbness or altered sensation no complaints or anxiety or depression. Physical Exam Physical Exam: The patient appeared well nourished and normally developed. Vital signs as documented. Head exam is normocephalic atraumatic no scleral icterus Neck is without JVD, thyromegaly, or carotid bruits. Lungs are clear to auscultation, no focal loss of breath sounds Cardiac exam, Rhythm is regular.. No murmurs, rubs or gallops. Abdominal exam reveals normal bowel sounds, soft non tender, no masses Extremities are nonedematous and both pedal pulses are normal. Neurologic exam is alert and oriented, no focal loss of strength or sensation Skin is without bruises or rashes Psychologically is without concerns for anxiety or depression Results & Data Results & Data ([facility]) Vital Signs (Past 12 Hours) Vital Signs Temp Pulse Pulse Resp BP BP Pulse Ox 11/29/19 07:11 98.2 F 66 20 123/77 98 11/29/19 03:44 98.2 F 62 15 109/76 97 11/28/19 23:54 98.6 F 57 L 15 104/69 96 11/28/19 23:09 68 PG Care Time/CCT Total # of Minutes Spent Total Time Spent with Patient: Total time spent is greater than 50% in coordination of care (as documented) at patient's floor/unit and/or counseling patient: Coding Level of Care Code 24978 Subseq Hosp Care Lvl 2 Diagnoses Bradycardia R00.1 Hypertension I10 Metabolic syndrome E88.81 Hypothyroidism E03.9 Depression with anxiety F41.8 Vitamin D deficiency E55.9 Morbid obesity E66.01 GERD (gastroesophageal reflux disease) K21.9 Crohns disease K50.90 DVT prophylaxis Z29.9
[2019-11-29 08:34] LABS: Estimated Average Glucose 97 mg/dl
[2019-11-29] MEDS: ACETAMINOPHEN 325 MG TAB PO PRN (09:19)
[2019-11-29] MEDS: CHOLECALCIFEROL 1,000 UNITS 25 MCG TAB PO SCH (09:20)
[2019-11-29] MEDS: CYANOCOBALAMIN 1000 MCG/ML VIAL IM SCH (09:24)
--- NOTE | 2019-11-29 09:48 | Cardiology Consultation ---
Date of Consultation November 29, 2019 Assessment & Plan (1) Syncope: She reports a long-standing history of syncopal episodes over the last 17 years. Her last episode was Monday. Her episodes are not typical for orthostatic hypotension because she is typically up walking around for a while before she becomes symptomatic. She has worn monitors in the past, but she has never actually had an episode caught with monitoring. Her work-up this admission has been unremarkable including EKG and telemetry monitoring. It is recommended she wear a 30 day monitor as an outpatient to hopefully capture one of these episodes to see if there is an arrhythmia correlate. An echocardiogram can also be performed as an outpatient. Her last study in 2011 demonstrated normal LV size, wall motion, and systolic function. (2) Bradycardia: This was reportedly noted on her apple watch. EKG shows normal sinus rhythm. Telemetry monitoring has not shown any significant bradycardia. Will arrange a 30 day monitor to be worn as an out-patient. (3) Tachycardia: Also noted on her apple watch. Recommend 30 day monitor. (4) Chest pain: Atypical. EKG shows no acute ischemic changes. Cardiac enzymes have been negative. Would not recommend any further cardiovascular work-up in this regard. Patient discussed with Dr. Vines. She is stable for discharge from a cardiovascular perspective. Will arrange studies and follow-up as an outpatient. History of Present Illness Reason for Consultation: Bradycardia, tachycardia Requesting Physician: Missy Phillips PA-C History of Present Illness Mrs. Rivas is a 34-year-old female with a past medical history significant for elevated blood pressure (not currently on antihypertensive therapy), Crohn's disease, gastroparesis, GERD, migraine headaches, asthma, Fibromyalgia, hypothyroidism, vitamin D deficiency, orthostatic hypotension, and morbid obesity who was admitted yesterday due to bradycardia and syncope. The patient reports a long-standing history of syncopal events over the last 17 years. She states that she is typically up ambulating when she feels lightheaded and "different." She tries to go sit down, but can then pass out and fall to the floor. She has bruised herself with the syncopal events but has never had a more serious injury. She states the syncopal events have been happening more frequently. Her most recent even occurred on Monday of this week when she was walking around in her living room. She then felt lightheaded and tried to get to the couch to sit down, but passed out before she made it here. She reports that she hit her head on the ground with the event. She has worn 24-48 hour monitors before, which have been unremarkable. She has never actually had a syncopal event captured with monitoring, though. She wears an apple watch, and she states that her heart rate can be as low as 38 bpm at times. She has also had readings as high as 210 bpm. She reports that she can feel her heart racing at times. She reports an intermittent squeezing sensation in the center of her chest. It appears to occur at random, at rest or with exertion. She has also noted a constant discomfort under her left breast since yesterday. The discomfort is worse with taking deep breaths. She reports shortness of breath with more strenuous exertion such as hiking. She denies any significant shortness of breath with her usual daily activities. She denies orthopnea or PND. She has had a chronic swelling of the left side of her body for a couple of years. This has improved with weight loss, but she still feels as though the left side of her body is more swollen compared to the right. She reports intermittent headaches, and at times, she feels that her entire face is numb. She reports intermittent blood in her stool due to her Crohn's disease. She denies any blood in her stool recently. She denies hematuria. Family history: Maternal uncle of a IA in his late 40s - early 50s. Parents both have hypertension. Social history: She is with 3 children. 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 She drinks alcohol about 1- 2 times a month. No smoking history. Allergies Allergy/AdvReac Type Severity Reaction Status Date / Time bee venom protein (honey bee) Allergy Intermediate SWELLING Verified 11/28/19 10:59 AND SHORTNESS OF BREATH Fish Containing Products Allergy Intermediate HIVES, Verified 11/28/19 10:59 ITCHING, SLIGHT DIFFICULTY BREATHING shellfish derived Allergy Intermediate HIVES, Verified 11/28/19 10:59 ITCHING, SLIGH DIFFICULTY BREATHING fish oil Allergy Mild HIVES, Verified 11/28/19 10:59 VOMITING adalimumab Allergy Unknown SWELLING Verified 11/28/19 10:59 AT INJECTION SITE certolizumab pegol Allergy Unknown swelling Unverified 11/28/19 10:59 baseball sized swelling infliximab Allergy Unknown migraines,itchiness, Verified 11/28/19 10:59 hair fallou sumatriptan [From Imitrex] Allergy Unknown mess with Verified 11/28/19 10:59 heart rate metronidazole AdvReac diarrhea, Verified 11/28/19 10:59 abdominal pain CONTRAST DYE Allergy Severe hives, Uncoded 11/28/19 10:59 throat swelled Home Medications Home Medications Medication Instructions Recorded Confirmed Type epinephrine [EpiPen] 0.3 mg IM DIRECTED PRN #0 04/13/16 11/28/19 History cyanocobalamin (vitamin B-12) 1,000 mcg IM DAILY #0 08/29/17 11/28/19 History blood sugar diagnostic #10 ea 11/05/18 09/11/19 History ergocalciferol (vitamin D2) 1,250 50,000 units PO WEEKLY #12 cap 11/05/18 11/28/19 History mcg (50,000 unit) capsule lancets 33 gauge #100 ea 11/05/18 09/11/19 History levothyroxine 200 mcg tablet 200 mcg PO DAILY #90 tab 11/05/18 11/28/19 Rx multivitamin 1 tab PO DAILY 11/05/18 11/28/19 History vitamin E (dl, acetate) 450 mg 1,000 units PO DAILY 01/14/19 11/28/19 History (1,000 unit) capsule cholecalciferol (vitamin D3) 125 7,000 units PO DAILY tab 05/17/19 11/28/19 History mcg (5,000 unit) tablet nystatin 100,000 unit/gram topical 1 appln TOP TID PRN #60 gm 08/13/19 11/28/19 Rx powder Patient History Medical History Arthritis Asthma (11/07/12) Crohns disease Fibromyalgia Gastroparesis GERD (gastroesophageal reflux disease) (11/07/12) Hypertension Migraine (11/07/12) Morbid obesity (11/07/12) PTSD (post-traumatic stress disorder) Small bowel obstruction Thyroid dysfunction (11/07/12) Surgical History History of resection of terminal ileum 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 [facility] History of surgical removal of skin lesion finger Hx of appendectomy Hx of cholecystectomy Family History Father Hypertension Dyslipidemia Diabetes Sleep apnea Mother Hypertension Aunt Breast cancer Ovarian cancer Grandfather (Paternal) Lung cancer Other Colorectal cancer Denies family history of Prostate cancer Social History Smoking Status: Never smoker Hx Alcohol Use: Yes Alcohol type: wine Hx Substance Use: Yes Last Used Substance: Days (ago) Last Used Substance Other:: March 2019 Substance Use Type Other:: Has medical marijuana Preferred Language: Indonesian Visual Impairment: Limited Hearing Ability: Normal 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 EOMs intact. Sclera non-icteric. Face is symmetric. No perioral cyanosis. Mucous membranes moist Neck: Supple, no JVD, no carotid bruits Pulmonary: Normal respiratory effort, clear to auscultation throughout Cardiac: Regular rate and rhythm, normal S1 and S2, no gallops, no rubs, no murmurs Extremities: No edema. No clubbing or cyanosis. Pulses 2+ and symmetric Abdomen: Normal bowel sounds, soft, non-tender, no abdominal masses palpated Skin: Normal skin color, turgor, and pigmentation. No rash or skin lesions Neurological: Oriented to person, place, and time Results & Data ([facility]) Vital Signs (Past 12 Hours) Vital Signs Temp Pulse Pulse Resp BP BP Pulse Ox 11/29/19 07:11 98.2 F 66 20 123/77 98 11/29/19 03:44 98.2 F 62 15 109/76 97 11/28/19 23:54 98.6 F 57 L 15 104/69 96 11/28/19 23:09 68 Laboratory Results Laboratory Results WBC 6.36 K/uL (4.8-10.8) 11/29/19 06:04 RBC 4.61 M/uL (4.2-5.4) 11/29/19 06:04 Hgb 13.0 g/dL (12.0-16.0) 11/29/19 06:04 Hct 39.9 % (37-47) 11/29/19 06:04 MCV 86.6 fL (80-100) 11/29/19 06:04 MCH 28.2 pg (25-34) 11/29/19 06:04 MCHC 32.6 g/dL (32-36) 11/29/19 06:04 RDW Std Deviation 41.9 fL (36.4-46.3) 11/29/19 06:04 RDW Coeff of Pepe 13.2 % (11.5-14.5) 11/29/19 06:04 Plt Count 259 K/uL (130-400) 11/29/19 06:04 MPV 10.9 fL (7.4-10.4) H 11/29/19 06:04 Immature Gran % (Auto) 0.1 % 11/28/19 11:41 Neut % (Auto) 69.6 % 11/28/19 11:41 Lymph % (Auto) 22.1 % 11/28/19 11:41 Gallia % (Auto) 5.9 % 11/28/19 11:41 Eos % (Auto) 2.2 % 11/28/19 11:41 Baso % (Auto) 0.1 % 11/28/19 11:41 Neut # (Auto) 4.75 K/uL (1.4-6.5) 11/28/19 11:41 Lymph # (Auto) 1.51 K/uL (1.2-3.4) 11/28/19 11:41 Gallia # (Auto) 0.40 K/uL (0.11-0.59) 11/28/19 11:41 Eos # (Auto) 0.15 K/uL (0-0.5) 11/28/19 11:41 Baso # (Auto) 0.01 K/uL (0-0.2) 11/28/19 11:41 Immature Gran # (Auto) 0.01 K/uL (0.00-0.02) 11/28/19 11:41 PT 11.1 Seconds (9.0-12.0) 11/28/19 11:40 INR 1.1 (0.9-1.1) 11/28/19 11:40 APTT 29.9 Seconds (21.0-31.0) 11/28/19 11:40 PTT Ratio 1.1 11/28/19 11:40 D-Dimer 340 ug/L FEU (0-500) 11/28/19 11:40 Sodium 142 mmol/L (136-145) 11/29/19 06:04 Potassium 3.6 mmol/L (3.5-5.1) 11/29/19 06:04 Chloride 110 mmol/L (98-107) H 11/29/19 06:04 Carbon Dioxide 26 mmol/L (21-32) 11/29/19 06:04 Anion Gap 6.0 (3-11) 11/29/19 06:04 BUN 11 mg/dl (7-18) 11/29/19 06:04 Creatinine 1.02 mg/dl (0.6-1.2) 11/29/19 06:04 Est Cr Clr Drug Dosing 116.8 ml/min 11/29/19 06:04 Est GFR ( Amer) 82.0 11/29/19 06:04 Est GFR (Non-Af Amer) 70.7 11/29/19 06:04 BUN/Creatinine Ratio 10.4 (10-20) 11/29/19 06:04 Glucose 74 mg/dl (70-99) 11/29/19 06:04 Estimat Average Glucose 97 mg/dl 11/29/19 06:04 Hemoglobin A1c 5.0 % (4.5-5.6) 11/29/19 06:04 Calcium 8.4 mg/dl (8.5-10.1) L 11/29/19 06:04 Magnesium 2.2 mg/dl (1.8-2.4) 11/28/19 11:40 Total Bilirubin 0.6 mg/dl (0.2-1) 11/29/19 06:04 AST 8 U/L (15-37) L 11/29/19 06:04 ALT 11 U/L (12-78) L 11/29/19 06:04 Alkaline Phosphatase 95 U/L (45-117) 11/29/19 06:04 Troponin I < 0.015 ng/ml (0-0.045) 11/28/19 20:17 Total Protein 6.8 gm/dl (6.4-8.2) 11/29/19 06:04 Albumin 3.1 gm/dl (3.4-5.0) L 11/29/19 06:04 Globulin 3.7 gm/dl (2.5-4.0) 11/29/19 06:04 Albumin/Globulin Ratio 0.8 (0.9-2) L 11/29/19 06:04 TSH 7.450 uIu/ml (0.300-4.500) H 11/28/19 11:40 Free T4 0.86 ng/dl (0.8-1.6) 11/28/19 11:40 HCG, Qual Negative (Negative) 11/28/19 11:40 Urine Color Dark Yellow 11/28/19 11:41 Urine Appearance Turbid (Clear) A 11/28/19 11:41 Urine pH 5.5 (4.5-7.5) 11/28/19 11:41 Ur Specific Capron 1.018 (1.000-1.030) 11/28/19 11:41 Urine Protein Negative (Negative) 11/28/19 11:41 Urine Glucose (UA) Negative (Negative) 11/28/19 11:41 Urine Ketones 1+ (Negative) H 11/28/19 11:41 Urine Blood Trace (Negative) H 11/28/19 11:41 Urine Nitrite Positive (Negative) A 11/28/19 11:41 Urine Bilirubin Negative (Negative) 11/28/19 11:41 Urine Urobilinogen Negative (Negative) 11/28/19 11:41 Ur Leukocyte Esterase 2+ (Negative) H 11/28/19 11:41 Urine WBC (Auto) >30 /hpf (0-5) H 11/28/19 11:41 Urine RBC (Auto) 5-10 /hpf (0-4) H 11/28/19 11:41 U Hyaline Cast (Auto) 0 /lpf (0-5) 11/28/19 11:41 U Epithel Cells (Auto) >30 /lpf (0-5) H 11/28/19 11:41 Urine Bacteria (Auto) 4+ (Negative) H 11/28/19 11:41 Anaplasma Smear See Comment 11/28/19 11:41 Lyme Disease IgG Ab Negative (Negative) 11/28/19 11:40 Lyme Disease IgM Ab Negative (Negative) 11/28/19 11:40 Diagnostic Findings EKG 11/28/19 shows normal sinus rhythm at 62 bpm. Normal EKG. Telemetry: Sinus rhythm in the 60s-80s during the day and 50s overnight. PG Care Time/CCT Total # of Minutes Spent Total Time Spent with Patient: Total time spent is greater than 50% in coordination of care (as documented) at patient's floor/unit and/or counseling patient: Coding Level of Care Code 28680 Inpt Consult Level 4 Diagnoses Syncope R55 Bradycardia R00.1 Tachycardia R00.0 Chest pain R07.9
[2019-11-29] MEDS ORDERED: PROMETHAZINE HCL 6.25 MG in SODIUM CHLORIDE 0.9% 50 ML IV STA (10:42)
[2019-11-29] MEDS ORDERED: KETOROLAC TROMETHAMINE 15 MG/ML VIAL IV ONE (10:45)
--- NOTE | 2019-11-29 17:24 | XCELERA ---
[id number]
--- NOTE | 2019-11-29 17:41 | CT Scan Report ---
ABDOMEN AND PELVIS CT WITH ORAL CONTRAST CT DOSE: 2198.43 mGy.cm HISTORY: Acute left-sided abdominal pain in a patient with history of Crohn's disease and gastric byp ass. h/o chrons with left sided pain(h/o gastric bypass, oral on TECHNIQUE: Multiaxial CT images of the abdomen and pelvis were performed following the use of oral co ntrast. A dose lowering technique was utilized adhering to the principles of ALARA. COMPARISON STUDY: CT abdomen and pelvis 01/25/2017 FINDINGS: The lung bases appear clear. No pneumatosis or pneumoperitoneum. The imaged inferior cardiac chambers are unremarkable. The spleen is enlarged measuring up to 15.8 cm. The liver also appears mildly enla rged. Cholecystectomy. Pancreas and adrenal glands are unremarkable. Unenhanced kidneys appear to be within normal limits. No obstructive uropathy. No urolith. Unremarkable urinary bladder, uterus and a dnexa. Aorta and IVC are unremarkable. No adenopathy. Prior Mynor-en-Y gastric bypass. No bowel obstruction or bowel wall thickening. Terminal ileum is unre markable. Prior appendectomy. No ascites or mesenteric inflammation. There are a few prominent nonenl arged lymph nodes of the right lower quadrant mesentery measuring up to 6 mm Soft tissues are unremarkable. Bones appear intact. IMPRESSION: 1. No acute intra-abdominal or intrapelvic abnormality. 2. No bowel obstruction or bowel wall thickening. 3. Mild splenomegaly. 4. Prior gastric bypass with cholecystectomy and appendectomy. ACT 112: Negative or not required by law. The above report was generated using voice recognition software. It may contain grammatical, syntax o r spelling errors. Electronically signed by: Hesham Brito M.D. 11/29/2019 5:40 PM
[2019-11-29] MEDS: cefTRIAXone SODIUM 2,000 MG in DEXTROSE 5% 50 ML IV SCH (18:43)
[2019-11-30] MEDS: HEPARIN SOD 5,000 UNIT/0.5 ML VIAL SQ SCH (06:11)
[2019-11-30] MEDS: LEVOTHYROXINE SODIUM 200 MCG TABLET PO SCH (06:11)
[2019-11-30] MEDS: ACETAMINOPHEN 325 MG TAB PO PRN (06:13)
[2019-11-30] MEDS: CHOLECALCIFEROL 1,000 UNITS 25 MCG TAB PO SCH (08:11)
[2019-11-30] MEDS: CYANOCOBALAMIN 1000 MCG/ML VIAL IM SCH (08:12)
[2019-11-30 08:39] LABS: Hematocrit (blood only) 41.8 % (37-47); Hemoglobin 13.7 g/dL (12.0-16.0); Mean Corpuscular Hemoglobin 28.2 pg (25-34); Mean Corpuscular Hgb Conc 32.8 g/dL (32-36); Mean Corpuscular Volume 86.2 fL (80-100); Mean Platelet Volume 10.4 fL (7.4-10.4); Platelet Count 254 K/uL (130-400); RDW Coefficient of Variation 13.1 % (11.5-14.5); RDW Standard Deviation 41.4 fL (36.4-46.3); Red Blood Count 4.85 M/uL (4.2-5.4); White Blood Count 5.03 K/uL (4.8-10.8)
[2019-11-30 09:18] LABS: Albumin Level 3.4 gm/dl (3.4-5.0); BUN Creatinine Ratio 11.4 (10-20); Creatinine Clr Calc Pharmacy 111.7 ml/min; Est GFR (African American) 77.3; Est GFR (Non-African American) 66.7; Potassium 3.6 mmol/L (3.5-5.1)
[2019-11-30 09:21] LABS: Albumin Globulin Ratio 0.9 (0.9-2); Bilirubin,Total 0.5 mg/dl (0.2-1); Total Protein 7.4 gm/dl (6.4-8.2)
--- NOTE | 2019-11-30 14:54 | Discharge Summary ---
Date of Service November 30, 2019 Admission HPI Per Admitting Provider This is a 34-year-old female with PMHx of HTN, HLD, morbid obesity with BMI 41.5, Crohn's disease, gastroparesis, GERD, migraine, asthma, fibromyalgia, metabolic syndrome, hypothyroidism, vitamin D deficiency and history of tachycardia who presents after having alerts on her apple watch showing bradycardia on 2 separate occasions last night, with heart rates in the high 30s to low 40s. She feels that she has had increased fatigue, lightheadedness, and intermittent left-sided chest pain more so within the past few days. On Monday she reports syncopal episode where she had preceding lightheadedness and fell to the ground, did not sustain any injury to the head, but came to quickly. Today she reports having chest pain at present rated a 5/10 on the left chest wall underneath her breast. Chest pain presents with rest at present, but pain is interchangeable with rest sometimes and on exertion other times. She also reports intermittent headaches which she treats with Tylenol and an occasional NSAID (as she states is not supposed to use NSAIDs with Crohn's disease) which occurred more frequently this week. Within the last few months she was worked up for tachycardia without significant findings, and was told to wear a Holter monitor but did not get this set up as an outpatient. She does not follow with cardiology routinely. Patient reports poor oral intake, lack of appetite within the past few days, and is sipping water at bedside. Denies nausea, vomiting, diarrhea, constipation. She was recently screened by her PCP for COVID-19 which was negative. She feels a great amount of stress at home but does not delve into the details. She feels her health has gone downhill in the last few months overall. She reports "I have had a 2020 sort of life" in reference to the COVID-19 pandemic currently going on. Upon asking her about resuscitation status she states "full code but I thought about that several times in the last few months, but I have children so I have to say yes", and becomes teary-eyed with those words. Family history: Her mother has history of heart disease, uncle of VT in late 40s/early 50s, father with history of PE and brother with history of unprovoked PE. She does not smoke or drink alcohol. Principal Diagnosis bradycardia, uti poa, ecoli quinalone resistent Discharge Exam The patient appeared well Vital signs as documented. Lungs are clear to auscultation and appear unlabored Cardiac exam, Rhythm is regular. Heart rates in the 60s she is asymptomatic with this. No murmurs, rubs or gallops. Abdominal exam reveals normal bowel sounds, soft non tender, no masses Extremities are nonedematous and both pedal pulses are normal. Neurologic exam is alert and oriented, no focal loss of strength or sensation Skin is without bruises or rashes Psychologically is without concerns for anxiety or depression Discharge Data Allergies Allergy/AdvReac Type Severity Reaction Status Date / Time bee venom protein (honey bee) Allergy Intermediate SWELLING Verified 11/28/19 10:59 AND SHORTNESS OF BREATH Fish Containing Products Allergy Intermediate HIVES, Verified 11/28/19 10:59 ITCHING, SLIGHT DIFFICULTY BREATHING shellfish derived Allergy Intermediate HIVES, Verified 11/28/19 10:59 ITCHING, SLIGH DIFFICULTY BREATHING fish oil Allergy Mild HIVES, Verified 11/28/19 10:59 VOMITING adalimumab Allergy Unknown SWELLING Verified 11/28/19 10:59 AT INJECTION SITE certolizumab pegol Allergy Unknown swelling Unverified 11/28/19 10:59 baseball sized swelling infliximab Allergy Unknown migraines,itchiness, Verified 11/28/19 10:59 hair fallou sumatriptan [From Imitrex] Allergy Unknown mess with Verified 11/28/19 10:59 heart rate metronidazole AdvReac diarrhea, Verified 11/28/19 10:59 abdominal pain CONTRAST DYE Allergy Severe hives, Uncoded 11/28/19 10:59 throat swelled Consultations 11/28/19 13:43 ED Decision to Admit Stat 11/28/19 17:42 Consult Cardiology Routine Ordered Studies 11/28/19 12:23 CT head/brain wo con Stat 11/29/19 14:14 CT abd pelvis oral con only Routine Hospital Course (1) Bradycardia: -Cardiology is seen the patient and feels no concern for in hospital inventions will follow-up as an outpatient - EKG reviewed and is normal sinus rhythm, heart rate in the mid 60s. -Checked troponin trend has been negative -TSH is elevated = 7.450, free T4 normal, follow-up for thyroid axis with PCP -Lyme's titer negative, , anaplasmosis negative (2) Hypertension: No need for additional treatment pressures remained stable (3) Metabolic syndrome: -Chronic (4) Hypothyroidism: -Continue levothyroxine 200 mcg daily (5) Depression with anxiety: -Not on antidepressants, will need further discussion regarding depressive symptoms/anxiety while here in the hospital, consider initiation of sertraline as this is weight neutral, and unlikely to affect metabolic syndrome (6) Vitamin D deficiency: -Takes supplementation biweekly (7) Morbid obesity: - BMI 41.5-diet and exercise to be encouraged prior to discharge (8) GERD (gastroesophageal reflux disease): - not on PPI or H2-pravin - monitor (9) Crohns disease: -Patient reports having failed Remicade, Humira, symposi, but is anticipating a trial of Stelara as an outpatient, not currently on any immunosuppressants/biologic agents -No recent flares, with abdominal pain we did perform a CT scan of abdomen pelvis with contrast without any evidence of Crohn's flares at this time (10) UTI (urinary tract infection): Patient was found to have greater than 100K bacterial colonies of E. coli which is resistant to quinolones. Patient was given dose of Rocephin here in our hospital and was discharged on cefdinir to complete a 5-day course Total Time Total Time Spent Total Time Spent (In Minutes): It required greater than 30 minutes to prepare this patient for discharge Discharge Plan Discharge Items Patient Disposition: Home - Self-Care Reason For Visit: CHEST PAIN, BRADYCARDIA Discharge Diagnosis: bradycardia headache abdominal pain with negative ct scan Activity: Per Instructions section Non-emergency contact: Primary Care Provider Call non-emergency contact if: you have any medication questions and your symptoms worsen Follow-up/Referrals: Ricky Doshi MD [Physician] - Nae Osborn MD [Primary Care Provider] - Diet: Regular Addtl Attending Provider Instructions: please follow up with your family doctor for furhter discussion and referral if outpt heart monitor is needed Pending Studies at Discharge: No Stand-Alone Forms: My Mapbar, Smoking Cessation Medications and DC Order Prescriptions: New cefdinir 300 mg capsule 300 mg PO BID 5 Days Qty: 10 RF: 0 Continued epinephrine [EpiPen] 0.3 mg/0.3 mL Auto-Injector 0.3 mg IM DIRECTED PRN (Reason: Allergic Reaction) Qty: 0 RF: 0 cyanocobalamin (vitamin B-12) 1,000 mcg/mL Solution 1,000 mcg IM DAILY Qty: 0 RF: 0 cholecalciferol (vitamin D3) 125 mcg (5,000 unit) tablet 7,000 units PO DAILY RF: 0 nystatin 100,000 unit/gram powder 1 appln TOP TID PRN (Reason: abscess) Qty: 60 RF: 1 multivitamin [Multiple Vitamins] tablet 1 tab PO DAILY RF: 0 (DME) lancets [OneTouch Delica Lancets] 33 gauge misc See Dose Instructions .ROUTE .MEDSUPPLY Qty: 100 RF: 0 (DME) OneTouch Verio test strips strip See Dose Instructions .ROUTE .MEDSUPPLY Qty: 10 RF: 0 ergocalciferol (vitamin D2) 50,000 unit capsule 50,000 units PO WEEKLY Qty: 12 RF: 0 levothyroxine 200 mcg tablet 200 mcg PO DAILY Qty: 90 RF: 3 vitamin E (dl, acetate) 1,000 unit capsule 1,000 units PO DAILY RF: 0 Discharge Orders: Discharge Order (Routine); Ordered 11/30/19 Ordered By: Sammy Brown/Other Patient Handouts: Urinary Tract Infections in Women Admission Data Admit Date/Time: 11/28/19 15:30 Attending Provider: Sammy Edward Admit Provider: Hadley Wilks Primary Care Provider: Nae Osborn Other Providers: Hadley Wilks ; Román Vines Other Interventions: Discharge Summary Assessment (RN) Last Done: 11/30/19 10:37 Coding Level of Care Code D/C Day Management >30 mins Diagnoses Bradycardia R00.1 Hypertension I10 Metabolic syndrome E88.81 Hypothyroidism E03.9 Depression with anxiety F41.8 Vitamin D deficiency E55.9 Morbid obesity E66.01 GERD (gastroesophageal reflux disease) K21.9 Crohns disease K50.90 UTI (urinary tract infection) N39.0
== END 2019-11-30 11:21 | disposition home or self-care (01) ==
LOC: ED 10:20 → 2W 10:20 → SUATTDRO 15:30 → 2W 16:57

== ENCOUNTER 2021-03-29 12:00 | Inpatient (IN) ==
--- NOTE | 2021-03-29 12:13 | Emergency Department Note ---
Impression & Plan Pneumonia due to 2019-nCoV, Hypoxia, Abnormal vaginal bleeding ED Provider Note NAME: ABEL MAYORGA AGE: 35 SEX: F : 1985 ARRIVES VIA: Walk-In INFORMANT: Patient ED PROVIDER(S): Bert Otto DO CHIEF COMPLAINT: Covid positive shortness of breath HPI: Patient is a 35-year-old female who presents the ER who symptoms started on the fifth of this month. She admits to cough and congestion. She has lost her sense of taste and smell. She admits to shortness of breath. No chest pain. No belly pain. She does have some diarrhea. No dysuria urgency or frequency. No other exacerbating or remitting factors. She admits that she is . She believes she is under 8 weeks. She admits to some intermittent spotting. ROS: See above HPI for pertinent positives & negatives. A total of 10 systems reviewed and were otherwise negative. � PAST MEDICAL HISTORY:��See Below PAST SURGICAL HISTORY:��See Below� FAMILY HISTORY:��See Below SOCIAL HISTORY:��See Below � HOME MEDICATIONS:��See Below ALLERGIES:��See Below � VITALS:��See Below PHYSICAL EXAMINATION: GENERAL: Sitting up in bed, alert, well appearing, well nourished, no distress, non-toxic EYE EXAM: normal conjunctiva. PERRL and EOM's grossly intact. OROPHARYNX: no exudate, no erythema, lips, buccal mucosa, and tongue normal and mucous membranes are moist NECK: supple, no nuchal rigidity, no adenopathy, non-tender LUNGS: Clear to auscultation. Normal chest wall mechanics HEART: no murmurs, S1 normal and S2 normal ABDOMEN: abdomen soft, non-tender, normo-active bowel sounds, no masses, no rebound or guarding. UPPER EXTREMITIES: upper extremities are grossly normal. LOWER EXTREMITIES: No pitting edema. NEURO EXAM: Normal sensorium, cranial nerves II-XII grossly intact, normal speech, no gross weakness of arms, no gross weakness of legs. MEDICAL DECISION MAKING: Patient is a 35-year-old female who presents the ER for upper respiratory symptoms associated with shortness of breath. She also notes that she is and having some spotting. IV was established blood work was obtained. Labs show leukopenia consistent with Covid. BMP with a slightly elevated chlor ash. LFTs bilirubin was unremarkable. Troponin was negative. Lipase was unremarkable. hCG was 12,000. Patient is Covid positive. She is O+ blood type. No need for RhoGam at this point. Ordered pelvic ultrasound but due to high volume this was not completed while the patient was in the ER. She was already admitted. She remained on nasal cannula. She was given Decadron. She desatted to 83% with ambulation. Discussed with hospitalist for further evaluation. Triage Nursing notes reviewed. Limited review of prior medical records performed Vital Signs: reviewed and remarkable for no significant abnormalities Differential diagnosis: Differential diagnoses includes but is not limited to pneumonia, bronchitis, COPD/Asthma exacerbation, pneumothorax, pulmonary embolism, congestive heart failure, acute coronary syndrome ER treatment provided: See below Diagnostics interpreted by me: ECG: Sinus rhythm rate of 90 Normal axis No PVCs QTC 442 Cardiac Monitoring: An order was placed for continuous cardiac monitoring. The monitor shows a rate of 92 with sinus rhythm. Laboratory studies: As stated above and show below. Imaging studies: Chest x-ray shows bilateral infiltrates Ultrasound pelvis was ordered and pending following admission. Consultation(s): Discussed with Dr. 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 [facility] History of surgical removal of skin lesion finger Hx of appendectomy Hx of cholecystectomy Family History Father Hypertension Dyslipidemia Diabetes Sleep apnea Mother Hypertension Aunt Breast cancer Ovarian cancer Grandfather (Paternal) Lung cancer Other Colorectal cancer Denies family history of Prostate cancer Social History Smoking Status: Never smoker Hx Alcohol Use: Yes Alcohol type: wine Hx Substance Use: No Preferred Language: Mongolian Visual Impairment: Limited Hearing Ability: Normal Client Delivery Specialist Required: No Beliefs That Will Affect Care: None marital status: Current Living Situation: Spouse and Family current occupational status: unemployed Feels Safe at Home: Yes caffeine: No Dental Care, Regularly: Yes Physical Activity Frequency: Daily Seatbelt Use: always Sunscreen Use: Yes Assistive Devices: Glasses Allergies Allergies Allergy/AdvReac Type Severity Reaction Status Date / Time bee venom protein (honey bee) Allergy Intermediate SWELLING Verified 03/21/21 02:28 AND SHORTNESS OF BREATH certolizumab pegol Allergy Intermediate swelling Verified 03/21/21 02:28 baseball sized swelling Fish Containing Products Allergy Intermediate HIVES, Verified 03/21/21 02:28 ITCHING, SLIGHT DIFFICULTY BREATHING fish oil Allergy Intermediate HIVES, Verified 03/21/21 02:28 VOMITING infliximab Allergy Intermediate migraines,itchiness, Verified 03/21/21 02:28 hair fallout shellfish derived Allergy Intermediate HIVES, Verified 03/21/21 02:28 ITCHING, SLIGH DIFFICULTY BREATHING adalimumab Allergy Mild SWELLING Verified 03/21/21 02:28 AT INJECTION SITE sumatriptan [From Imitrex] Allergy Unknown messed Verified 03/21/21 02:28 with heart rate duloxetine AdvReac Intermediate depression Verified 03/21/21 02:28 metronidazole AdvReac Intermediate diarrhea, Verified 03/21/21 02:28 abdominal pain CONTRAST DYE Allergy Severe hives, Uncoded 03/21/21 02:28 throat swelled Home Meds Home Medications Medication Instructions Recorded Confirmed cholecalciferol (vitamin D3) 125 7,000 units PO DAILY tab 05/17/19 03/29/21 mcg (5,000 unit) tablet cyclosporine 0.09 % eye drops in a 1 drp OPB BID 11/03/20 03/29/21 dropperette (Cequa) ergocalciferol (vitamin D2) 1,250 1,250 mcg PO WK 11/03/20 03/29/21 mcg (50,000 unit) capsule (Vitamin D2) vitamin E 400 unit capsule 400 unit PO DAILY 11/03/20 03/29/21 magnesium oxide 200 mg PO DAILY ea 01/06/21 03/29/21 albuterol sulfate 90 mcg/actuation 2 puff INHALATION Q6 PRN 03/21/21 03/29/21 aerosol inhaler fludrocortisone 0.1 mg tablet 0.1 mg PO DAILY 03/21/21 03/29/21 Previous Rx's Medication Instructions Recorded epinephrine 0.3 mg/0.3 mL 0.3 mg IM DIRECTED PRN #1 ea 01/21/20 injection, auto-injector (EpiPen) vit,calcium no.40-iron 1 tab PO DAILY #90 tab 03/23/21 fum 27 mg iron-folate no.1 1 mg tablet (PNV-Select) cyanocobalamin (vitamin B-12) See Rx Instructions .ROUTE 03/25/21 1,000 mcg/mL injection solution .COMPLEX #10 ml levothyroxine 200 mcg tablet See Rx Instructions .ROUTE 03/25/21 .COMPLEX #90 tab Results & Data (ED) Vital Signs Vital Signs - 24 hr 03/29/21 12:02 03/29/21 12:40 03/29/21 12:42 Temperature 36.2 C L Temperature Source Temporal Artery Scan Pulse Rate 97 H 90 Pulse Rate from SpO2 Sensor 91 H Respiratory Rate 18 25 H Respiratory Effort / Characteristics Non-Labored Spontaneous Respiratory Depth Normal Respiratory Pattern Regular Blood Pressure 115/75 Blood Pressure Mean 88 Blood Pressure Position Sitting Pulse Oximetry 93 97 92 Oxygen Delivery Method Room Air Room Air Oxygen Flow Rate 2 Sepsis Recent Fever Within 48 Hours Yes Sepsis New/Unexplained Change in Mental Status No Sepsis Action Taken by Nursing No Action Required 03/29/21 12:50 03/29/21 13:00 03/29/21 13:10 Temperature Temperature Source Pulse Rate 94 H 92 H 90 Pulse Rate from SpO2 Sensor 93 H 91 H 91 H Respiratory Rate 20 22 21 Respiratory Effort / Characteristics Respiratory Depth Respiratory Pattern Blood Pressure Blood Pressure Mean Blood Pressure Position Pulse Oximetry 98 98 100 Oxygen Delivery Method Oxygen Flow Rate Sepsis Recent Fever Within 48 Hours Sepsis New/Unexplained Change in Mental Status Sepsis Action Taken by Nursing 03/29/21 13:20 03/29/21 13:30 03/29/21 14:00 Temperature Temperature Source Pulse Rate 88 87 89 Pulse Rate from SpO2 Sensor 89 87 89 Respiratory Rate 19 20 15 Respiratory Effort / Characteristics Respiratory Depth Respiratory Pattern Blood Pressure 113/67 Blood Pressure Mean 82 Blood Pressure Position Pulse Oximetry 97 99 93 Oxygen Delivery Method Oxygen Flow Rate Sepsis Recent Fever Within 48 Hours Sepsis New/Unexplained Change in Mental Status Sepsis Action Taken by Nursing 03/29/21 14:01 03/29/21 14:16 03/29/21 14:30 Temperature Temperature Source Pulse Rate 87 Pulse Rate from SpO2 Sensor 87 Respiratory Rate 17 Respiratory Effort / Characteristics Respiratory Depth Respiratory Pattern Blood Pressure 128/73 Blood Pressure Mean 91 Blood Pressure Position Pulse Oximetry 93 96 Oxygen Delivery Method Nasal Cannula Room Air Oxygen Flow Rate 2 Sepsis Recent Fever Within 48 Hours Sepsis New/Unexplained Change in Mental Status Sepsis Action Taken by Nursing 03/29/21 15:00 03/29/21 15:30 03/29/21 16:00 Temperature Temperature Source Pulse Rate 86 95 H 92 H Pulse Rate from SpO2 Sensor 86 97 H 90 Respiratory Rate 20 17 28 H Respiratory Effort / Characteristics Respiratory Depth Respiratory Pattern Blood Pressure 113/64 Blood Pressure Mean 80 Blood Pressure Position Pulse Oximetry 94 94 91 Oxygen Delivery Method Oxygen Flow Rate Sepsis Recent Fever Within 48 Hours Sepsis New/Unexplained Change in Mental Status Sepsis Action Taken by Nursing Laboratory Data Result diagrams: 03/29/21 12:38 03/29/21 12:38 Lab Results 03/29/21 03/29/21 03/29/21 Range/Units 12:38 12:38 12:38 WBC 2.06 L (4.8-10.8) K/uL RBC 4.86 (4.2-5.4) M/uL Hgb 12.1 (12.0-16.0) g/dL Hct 37.8 (37-47) % MCV 77.8 L (80-100) fL MCH 24.9 L (25-34) pg MCHC 32.0 (32-36) g/dL RDW Std Deviation 43.3 (36.4-46.3) fL RDW Coeff of Pepe 15.2 H (11.5-14.5) % Plt Count 139 (130-400) K/uL MPV 10.6 H (7.4-10.4) fL Immature Gran % (Auto) 0.0 % Neut % (Auto) 57.3 % Lymph % (Auto) 34.0 % [place] % (Auto) 8.7 % Eos % (Auto) 0.0 % Baso % (Auto) 0.0 % Neut # (Auto) 1.18 L (1.4-6.5) K/uL Lymph # (Auto) 0.70 L (1.2-3.4) K/uL [place] # (Auto) 0.18 (0.11-0.59) K/uL Eos # (Auto) 0.00 (0-0.5) K/uL Baso # (Auto) 0.00 (0-0.2) K/uL Immature Gran # (Auto) 0.00 (0.00-0.02) K/uL Sodium 138 (136-145) mmol/L Potassium 3.7 (3.5-5.1) mmol/L Chloride 108 H (98-107) mmol/L Carbon Dioxide 23 (21-32) mmol/L Anion Gap 7.0 (3-11) BUN 9 (7-18) mg/dl Creatinine 0.91 (0.6-1.2) mg/dl Est Cr Clr Drug Dosing 126.3 ml/min Est GFR ( Amer) 93.4 ml/min Est GFR (Non-Af Amer) 80.6 ml/min BUN/Creatinine Ratio 9.9 L (10-20) Glucose 92 (70-99) mg/dl Calcium 8.3 L (8.5-10.1) mg/dl Total Bilirubin 0.2 (0.2-1) mg/dl AST 26 (15-37) U/L ALT 19 (12-78) Alkaline Phosphatase 68 (45-117) U/L Troponin I < 0.015 (0-0.045) ng/ml C-Reactive Protein (0-0.29) mg/dl Total Protein 7.4 (6.4-8.2) gm/dl Albumin 2.9 L (3.4-5.0) gm/dl Globulin 4.5 H (2.5-4.0) gm/dl Albumin/Globulin Ratio 0.6 L (0.9-2) Lipase 223 (73-393) U/L HCG, Quant 20957 mIU/ml SARS-CoV-2 (PCR) (Negative) Influenza Type A (PCR) (Neg) Influenza Type B (PCR) (Neg) RSV (RT-PCR) (Neg) Blood Type Antibody Screen 03/29/21 03/29/21 03/29/21 Range/Units 12:38 14:29 14:53 WBC (4.8-10.8) K/uL RBC (4.2-5.4) M/uL Hgb (12.0-16.0) g/dL Hct (37-47) % MCV (80-100) fL MCH (25-34) pg MCHC (32-36) g/dL RDW Std Deviation (36.4-46.3) fL RDW Coeff of Pepe (11.5-14.5) % Plt Count (130-400) K/uL MPV (7.4-10.4) fL Immature Gran % (Auto) % Neut % (Auto) % Lymph % (Auto) % [place] % (Auto) % Eos % (Auto) % Baso % (Auto) % Neut # (Auto) (1.4-6.5) K/uL Lymph # (Auto) (1.2-3.4) K/uL [place] # (Auto) (0.11-0.59) K/uL Eos # (Auto) (0-0.5) K/uL Baso # (Auto) (0-0.2) K/uL Immature Gran # (Auto) (0.00-0.02) K/uL Sodium (136-145) mmol/L Potassium (3.5-5.1) mmol/L Chloride (98-107) mmol/L Carbon Dioxide (21-32) mmol/L Anion Gap (3-11) BUN (7-18) mg/dl Creatinine (0.6-1.2) mg/dl Est Cr Clr Drug Dosing ml/min Est GFR ( Amer) ml/min Est GFR (Non-Af Amer) ml/min BUN/Creatinine Ratio (10-20) Glucose (70-99) mg/dl Calcium (8.5-10.1) mg/dl Total Bilirubin (0.2-1) mg/dl AST (15-37) U/L ALT (12-78) Alkaline Phosphatase (45-117) U/L Troponin I (0-0.045) ng/ml C-Reactive Protein 3.65 H (0-0.29) mg/dl Total Protein (6.4-8.2) gm/dl Albumin (3.4-5.0) gm/dl Globulin (2.5-4.0) gm/dl Albumin/Globulin Ratio (0.9-2) Lipase (73-393) U/L HCG, Quant mIU/ml SARS-CoV-2 (PCR) POSITIVE A* (Negative) Influenza Type A (PCR) Negative (Neg) Influenza Type B (PCR) Negative (Neg) RSV (RT-PCR) Negative (Neg) Blood Type O Positive Antibody Screen NEGATIVE Administered Medications Discontinued Medications Dexamethasone Sodium Phosphate (DexamethasonePf 10 Mg/Ml Vial) 6 mg IV NOW ONE Stop: 03/29/21 15:14 Last Admin: 03/29/21 15:52 Dose: 6 mg Documented by: [id number] Sodium Chloride (Nss 1000ml) 500 mls @ 999 mls/hr IV .Q31M ONE Stop: 03/29/21 15:43 Last Infusion: 03/29/21 17:12 Dose: 0 mls/hr Documented by: [id number] Admin: 03/29/21 15:53 Dose: 999 mls/hr Documented by: [id number] Imaging Data Radiologist's Impression: Chest X-Ray 03/29/21 12:12 XR chest 1V portable CLINICAL HISTORY: Atypical chest pain TECHNIQUE: Single frontal radiograph of the chest was obtained. Comparison: Comparison is made to chest one view 03/24/2020 FINDINGS: No lines and tubes are seen. The cardiomediastinal silhouette is normal. Multifocal airspace opacities are seen. No evidence of pleural effusion or pneumothorax. IMPRESSION: Multiple airspace opacities compatible with history of Covid pneumonia. ACT 112: Negative or not required by law. Electronically signed by: Chandler Dutta M.D. 03/29/2021 1:12 PM Discharge Plan Visit Data Chief Complaint: Abnormal Labs/Diagnostic Testing Stated Complaint: LOW O2 LEVELS, PREG, HEADACHE, COVID + ED Provider: Bert Otto Discharge Problem: Pneumonia due to 2019-nCoV, Hypoxia, Abnormal vaginal bleeding Forms Stand Alone Forms: My [facility] [employer] Prescriptions Prescriptions: No Action cholecalciferol (vitamin D3) 125 mcg (5,000 unit) tablet 7,000 units PO DAILY RF: 0 PNV-Select 27-1 mg tablet 1 tab PO DAILY Qty: 90 RF: 3 cyanocobalamin (vitamin B-12) 1,000 mcg/mL solution See Rx Instructions .ROUTE .COMPLEX Qty: 10 RF: 3 levothyroxine 200 mcg tablet See Rx Instructions .ROUTE .COMPLEX Qty: 90 RF: 3 magnesium oxide 240 mg magnesium powder in packet 200 mg PO DAILY RF: 0 epinephrine [EpiPen] 0.3 mg/0.3 mL auto-injector 0.3 mg IM DIRECTED PRN (Reason: Allergic Reaction) Qty: 1 RF: 1 ergocalciferol (vitamin D2) [Vitamin D2] 1,250 mcg (50,000 unit) Capsule 1,250 mcg PO WK RF: 0 vitamin E 400 unit Capsule 400 unit PO DAILY RF: 0 Cequa 0.09 % dropperette 1 drp OPB BID RF: 0 albuterol sulfate 90 mcg/actuation HFA aerosol inhaler 2 puff inhalation Q6 PRN (Reason: Shortness Of Breath) RF: 0 fludrocortisone 0.1 mg tablet 0.1 mg PO DAILY RF: 0 Referrals Referrals: Nae Osborn MD [Primary Care Provider] -
[2021-03-29 12:50] LABS: Hematocrit (blood only) 37.8 % (37-47); Hemoglobin 12.1 g/dL (12.0-16.0); Mean Corpuscular Hemoglobin 24.9 pg (25-34); Mean Corpuscular Volume 77.8 fL (80-100); Mean Platelet Volume 10.6 fL (7.4-10.4); Monocytes # (auto) 0.18 K/uL (0.11-0.59); Monocytes % (auto) 8.7 %; Neutrophils # (auto) 1.18 K/uL (1.4-6.5); Neutrophils % (auto) 57.3 %; Platelet Count 139 K/uL (130-400); RDW Coefficient of Variation 15.2 % (11.5-14.5); RDW Standard Deviation 43.3 fL (36.4-46.3); Red Blood Count 4.86 M/uL (4.2-5.4); White Blood Count 2.06 K/uL (4.8-10.8)
--- NOTE | 2021-03-29 13:13 | XRay Report ---
XR chest 1V portable CLINICAL HISTORY: Atypical chest pain TECHNIQUE: Single frontal radiograph of the chest was obtained. Comparison: Comparison is made to chest one view 03/24/2020 FINDINGS: No lines and tubes are seen. The cardiomediastinal silhouette is normal. Multifocal airspace opacitie s are seen. No evidence of pleural effusion or pneumothorax. IMPRESSION: Multiple airspace opacities compatible with history of Covid pneumonia. ACT 112: Negative or not required by law. Electronically signed by: Chandler Dutta M.D. 03/29/2021 1:12 PM
[2021-03-29 13:14] LABS: Alanine Aminotransferase 19 (12-78); Albumin Level 2.9 gm/dl (3.4-5.0); Aspartate Aminotransferase 26 U/L (15-37); BUN Creatinine Ratio 9.9 (10-20); Blood Urea Nitrogen 9 mg/dl (7-18); Calcium 8.3 mg/dl (8.5-10.1); Carbon Dioxide 23 mmol/L (21-32); Chloride 108 mmol/L (98-107); Creatinine Clr Calc Pharmacy 126.3 ml/min; Est GFR (African American) 93.4 ml/min; Est GFR (Non-African American) 80.6 ml/min; Glucose 92 mg/dl (70-99); Lipase 223 U/L (73-393); Potassium 3.7 mmol/L (3.5-5.1); Sodium 138 mmol/L (136-145)
[2021-03-29 13:20] LABS: Albumin Globulin Ratio 0.6 (0.9-2); Alkaline Phosphatase 68 U/L (45-117); Bilirubin,Total 0.2 mg/dl (0.2-1); Globulin 4.5 gm/dl (2.5-4.0); Total Protein 7.4 gm/dl (6.4-8.2); Troponin I < 0.015 ng/ml (0-0.045)
[2021-03-29] MEDS ORDERED: dexAMETHasone**PF** 10 MG/ML VIAL IV ONE (15:13)
[2021-03-29] MEDS ORDERED: SODIUM CHLORIDE 0.9% 1000ML 500 ML IV ONE (15:13)
[2021-03-29 15:29] LABS: Influenza A virus by PCR Negative (Neg); Influenza B virus by PCR Negative (Neg); RSV by PCR Negative (Neg)
[2021-03-29 16:17] LABS: SARS CoV2 RNA(COVID-19) InHosp POSITIVE (Negative)
--- NOTE | 2021-03-29 16:43 | History & Physical Report ---
Date of Service March 29, 2021 Assessment & Plan (1) Pneumonia due to 2019-nCoV: Plan: Admit. 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 no further recommendations currently inpatient. hold off consult for now as no further workup needed unless bleeding worsens (3) First trimester : Plan: as stated above about 6-7 weeks (4) Hypothyroidism: Plan: resume home meds (5) Depression with anxiety: Plan: resume home meds (6) Asthma: Plan: will monitor. appears comtrollled as outpatient (7) Crohns disease: Plan: resume home meds will monitor History of Present Illness Chief Complaint: SOB Primary Care Provider: Nae Osborn MD This is a pleasant (first trimester) 35 yo female who presents to the hospital with COVID 19 symptoms which began on the fifth of this month. This includes productive cough, loss of taste and smell, and SOB. She also notes diarrhea. Her SOB has worsened over the past few days. Allergies Allergy/AdvReac Type Severity Reaction Status Date / Time bee venom protein (honey bee) Allergy Intermediate SWELLING Verified 03/21/21 02:28 AND SHORTNESS OF BREATH certolizumab pegol Allergy Intermediate swelling Verified 03/21/21 02:28 baseball sized swelling Fish Containing Products Allergy Intermediate HIVES, Verified 03/21/21 02:28 ITCHING, SLIGHT DIFFICULTY BREATHING fish oil Allergy Intermediate HIVES, Verified 03/21/21 02:28 VOMITING infliximab Allergy Intermediate migraines,itchiness, Verified 03/21/21 02:28 hair fallout shellfish derived Allergy Intermediate HIVES, Verified 03/21/21 02:28 ITCHING, SLIGH DIFFICULTY BREATHING adalimumab Allergy Mild SWELLING Verified 03/21/21 02:28 AT INJECTION SITE sumatriptan [From Imitrex] Allergy Unknown messed Verified 03/21/21 02:28 with heart rate duloxetine AdvReac Intermediate depression Verified 03/21/21 02:28 metronidazole AdvReac Intermediate diarrhea, Verified 03/21/21 02:28 abdominal pain CONTRAST DYE Allergy Severe hives, Uncoded 03/21/21 02:28 throat swelled Home Medications Medication Instructions Recorded Confirmed Type cholecalciferol (vitamin D3) 125 7,000 units PO DAILY tab 05/17/19 03/29/21 History mcg (5,000 unit) tablet epinephrine 0.3 mg/0.3 mL 0.3 mg IM DIRECTED PRN #1 ea 01/21/20 03/29/21 Rx injection, auto-injector (EpiPen) cyclosporine 0.09 % eye drops in a 1 drp OPB BID 11/03/20 03/29/21 History dropperette (Cequa) ergocalciferol (vitamin D2) 1,250 1,250 mcg PO WK 11/03/20 03/29/21 History mcg (50,000 unit) capsule (Vitamin D2) vitamin E 400 unit capsule 400 unit PO DAILY 11/03/20 03/29/21 History magnesium oxide 200 mg PO DAILY ea 01/06/21 03/29/21 History albuterol sulfate 90 mcg/actuation 2 puff INHALATION Q6 PRN 03/21/21 03/29/21 History aerosol inhaler fludrocortisone 0.1 mg tablet 0.1 mg PO DAILY 03/21/21 03/29/21 History vit,calcium no.40-iron 1 tab PO DAILY #90 tab 03/23/21 03/29/21 Rx fum 27 mg iron-folate no.1 1 mg tablet (PNV-Select) cyanocobalamin (vitamin B-12) See Rx Instructions .ROUTE 03/25/21 03/29/21 Rx 1,000 mcg/mL injection solution .COMPLEX #10 ml levothyroxine 200 mcg tablet See Rx Instructions .ROUTE 03/25/21 03/29/21 Rx .COMPLEX #90 tab Past Med/Surg History Medical History Arthritis Asthma (11/07/12) Crohns disease Dysfunctional uterine bleeding Fibromyalgia Gastroparesis GERD (gastroesophageal reflux disease) (11/07/12) Hypertension Migraine (11/07/12) Morbid obesity (11/07/12) PTSD (post-traumatic stress disorder) Small bowel obstruction Thyroid dysfunction (11/07/12) Surgical History History of resection of terminal ileum 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 [facility] History of surgical removal of skin lesion finger Hx of appendectomy Hx of cholecystectomy Family History Father Hypertension Dyslipidemia Diabetes Sleep apnea Mother Hypertension Aunt Breast cancer Ovarian cancer Grandfather (Paternal) Lung cancer Other Colorectal cancer Denies family history of Prostate cancer Social History Smoking Status: Never smoker Hx Alcohol Use: Yes Alcohol type: wine Hx Substance Use: No Preferred Language: Slovak Visual Impairment: Limited Hearing Ability: Normal Prepared Foods Associate Required: No Beliefs That Will Affect Care: None marital status: Current Living Situation: Spouse and Family current occupational status: unemployed Feels Safe at Home: Yes caffeine: No Dental Care, Regularly: Yes Physical Activity Frequency: Daily Seatbelt Use: always Sunscreen Use: Yes Assistive Devices: Glasses Review of Systems Constitutional: + fever, + body aches and + fatigue Eyes: no blind spots Ear, Nose, Mouth, Throat: no ear pain Respiratory: + cough and + dyspnea Cardiovascular: no chest pain Gastrointestinal: no abdominal pain Genitourinary: + bleeding between periods; no dysuria Musculoskeletal: no back pain Integumentary: no acne Neurologic: no gait abnormality Psychiatric: no behavioral changes Endocrine: + fatigue Hematologic / Lymphatic: no lymphadenopathy Allergy / Immunological: no GI upset with certain foods Physical Exam Constitutional: WD/WN, vitals as above Eyes: PERRL, conjunctivae normal, anicteric sclerae ENMT: external ear and nose normal, oropharynx normal Neck: trachea midline, no thyromegaly Respiratory: Auscultation: + diminished lung sounds and + rhonchi Cardiovascular: RRR, no murmur, no edema Gastrointestinal (Abdomen): normal bowel sounds, soft, nontender, no hepatosplenomegaly Musculoskeletal: no cyanosis or clubbing, extremities motor strength 5/5 Skin: no rashes, warm and dry Psychiatric: A+Ox3, euthymic affect Lymphatic: no cervical or axillary lymphadenopathy Results & Data Results & Data ([facility]) Vital Signs (Past 12 Hours) Vital Signs Temp Pulse Resp BP Pulse Ox 03/29/21 16:00 92 H 28 H 91 03/29/21 15:30 95 H 17 113/64 94 03/29/21 15:00 86 20 94 03/29/21 14:30 87 17 128/73 96 03/29/21 14:01 93 03/29/21 14:00 89 15 93 03/29/21 13:30 87 20 113/67 99 03/29/21 13:20 88 19 97 03/29/21 13:10 90 21 100 03/29/21 13:00 92 H 22 98 03/29/21 12:50 94 H 20 98 03/29/21 12:42 92 03/29/21 12:40 90 25 H 97 03/29/21 12:02 36.2 C L 97 H 18 115/75 93 PG Care Time/CCT Total # of Minutes Spent Total Time Spent with Patient: Total time spent is greater than 50% in coordination of care (as documented) at patient's floor/unit and/or counseling patient: Coding Level of Care Code 49628 Initial Inpt Care Lvl 3 Diagnoses Pneumonia due to 2019-nCoV U07.1; J12.82 Abnormal vaginal bleeding N93.9 First trimester Z34.91 Hypothyroidism E03.9 Depression with anxiety F41.8 Asthma J45.909 Crohns disease K50.919 Digestive disease complication type: unspecified complication Gastrointestinal tract location: unspecified location (1) Crohns disease Digestive disease complication type: unspecified complication Gastrointestinal tract location: unspecified location Qualified Code(s): K50.919 - Crohn's disease, unspecified, with unspecified complications
[2021-03-29] MEDS ORDERED: ENOXAPARIN 0.5 MG/KG SQ SCH (20:22)
--- NOTE | 2021-03-29 20:35 | Ultrasound Report ---
US OB <= 14 weeks fetus HISTORY: 35 years-old Female spotting acute vaginal bleeding with COMPARISON: Pelvic ultrasound 03/25/2021 TECHNIQUE: Multiple real-time sonographic images of the deep structures were obtained transabdominall y and transvaginally assessing grayscale appearance, color and spectral flow. FINDINGS: TRANSABDOMINAL: Anteflexed uterus PA and right ovary measures 2.3 x 1.7 x 1.9 cm with arterial inflow and venous outf low. Left ovary measures 3.2 x 2.1 x 3.1 cm with arterial inflow and venous outflow. TRANSVAGINAL: Hypoechoic foci of the cervix are suggestive of nabothian cysts, subcentimeter in size. Anteflexed ut erus. Intrauterine gestational sac measures 1.24 cm correlating with estimated gestational age of 5 w eeks and 3 days. This contains a 0.4 cm yolk sac with 0.35 cm fetus, correlating with estimated gesta tional age of 6 weeks and 0 days. There is surrounding decidual reaction. No heart rate identified at this time. The right ovary measures 2.5 x 1.8 x 2.5 cm and demonstrates arterial inflow with venous outflow. The left ovary measures 3.7 x 1.9 x 3.6 cm. Left corpus luteal cyst measures 3.2 x 2.1 x 2.5 cm. Trace a mount of free pelvic fluid within the cul-de-sac. IMPRESSION: 1. Intrauterine gestational sac with yolk sac and pole correlating with estimated gestational a ge of 6 weeks and 0 days. No heart rate identified at this time, possibly secondary to early pr egnancy. Close follow-up with serial quantitative beta hCG analysis and ultrasound imaging is needed. 2. Left corpus luteal cyst. ACT 112: Negative or not required by law. The above report was generated using voice recognition software. It may contain grammatical, syntax o r spelling errors. Electronically signed by: Tylor Brito M.D. 03/29/2021 8:34 PM
[2021-03-29] MEDS: ENOXAPARIN 80 MG/0.8 ML SYR SQ SCH (23:50)
[2021-03-30] MEDS: LEVOTHYROXINE SODIUM 200 MCG TABLET PO SCH (05:13)
[2021-03-30 05:43] LABS: Hematocrit (blood only) 36.2 % (37-47); Hemoglobin 11.3 g/dL (12.0-16.0); Mean Corpuscular Hemoglobin 24.4 pg (25-34); Mean Corpuscular Hgb Conc 31.2 g/dL (32-36); Mean Platelet Volume 10.5 fL (7.4-10.4); Platelet Count 146 K/uL (130-400); RDW Coefficient of Variation 15.4 % (11.5-14.5); RDW Standard Deviation 44.5 fL (36.4-46.3); Red Blood Count 4.64 M/uL (4.2-5.4); White Blood Count 2.46 K/uL (4.8-10.8)
[2021-03-30 06:14] LABS: BUN Creatinine Ratio 10.8 (10-20); C Reactive Protein 3.32 mg/dl (0-0.29); Calcium 8.4 mg/dl (8.5-10.1); Creatinine Clr Calc Pharmacy 123.6 ml/min; Est GFR (Non-African American) 78.5 ml/min; Potassium 3.7 mmol/L (3.5-5.1)
[2021-03-30] MEDS: MAGNESIUM OXIDE 400 MG TAB PO SCH (08:39)
[2021-03-30] MEDS: FLUDROCORTISONE ACETATE 0.1 MG TAB PO SCH (08:40)
[2021-03-30] MEDS: PRENATAL VITAMIN 1 TAB PO SCH (08:40)
[2021-03-30] MEDS: dexAMETHasone 6 MG in SYRINGE 0 ML IV SCH (08:41)
[2021-03-30] MEDS: TOCOPHERYL, DL-ALPHA 400 UNITS 180 MG CAP PO SCH (08:41)
[2021-03-30] MEDS: CHOLECALCIFEROL 5,000 UNITS 125 MCG TAB PO SCH (08:41)
[2021-03-30] MEDS: CHOLECALCIFEROL 1,000 UNITS 25 MCG TAB PO SCH (08:42)
[2021-03-30] MEDS: ENOXAPARIN 80 MG/0.8 ML SYR SQ SCH ×2 (08:42→20:57)
--- NOTE | 2021-03-30 13:29 | Hospitalist Progress Note ---
Date of Service March 30, 2021 Assessment & Plan (1) Pneumonia due to 2019-nCoV: Plan: Patient is admitted for above diagnosis. will continue on dexamethasone Patient has maintained on 2 liters nasal cannula lovenox for dvt prophylaxis will monitor crp, and oxygen requirements If continues to be on 2 liters tomorrow, may consider PT/OT and 2 step. (2) Abnormal vaginal bleeding: Plan: D/W [employer].Recommend repeat imaging in 1 week. Has an appointment on 04/06/21 no further recommendations currently inpatient. hold off consult for now as no further workup needed unless bleeding worsens (3) First trimester : Plan: as stated above about 6-7 weeks (4) Hypothyroidism: Plan: resume home meds (5) Depression with anxiety: Plan: resume home meds (6) Asthma: Plan: will monitor. appears comtrollled as outpatient (7) Crohns disease: Plan: resume home meds will monitor Admission and Anticipated Discharge Date Admission Date: March 29, 2021 Subjective Patient reports she had an apneic event overnight. Howeve=r she was asymptomatic and had no new concerns. Today she reports feeling about the same, very weak, with tremors when she moves. She reports having some vaginal spotting today. No clots, Review of Systems Review of Systems: All systems reviewed & are unremarkable except as noted in HPI & below Physical Exam Physical Exam: Constitutional:� WD/WN, vitals as above Eyes:� PERRL, conjunctivae normal, anicteric sclerae ENMT:� external ear and nose normal, oropharynx normal Neck:� trachea midline, no thyromegaly Respiratory:� Auscultation: + diminished lung sounds and + rhonchi Cardiovascular:� RRR, no murmur, no edema Gastrointestinal (Abdomen):� normal bowel sounds, soft, nontender, no hepatosplenomegaly Musculoskeletal:� no cyanosis or clubbing, extremities motor strength 5/5 Skin:� no rashes, warm and dry Psychiatric:� A+Ox3, euthymic affect Lymphatic:� no cervical or axillary lymphadenopathy Results & Data Results & Data ([facility]) Vital Signs (Past 12 Hours) Vital Signs Temp Pulse Resp BP Pulse Ox 03/30/21 08:37 36.7 C 84 20 125/68 94 03/30/21 04:02 74 26 H 94/55 L 93 PG Care Time/CCT Total # of Minutes Spent Total Time Spent with Patient: Total time spent is greater than 50% in coordination of care (as documented) at patient's floor/unit and/or counseling patient: Coding Level of Care Code 79954 Subseq Hosp Care Lvl 3 Diagnoses Pneumonia due to 2019-nCoV U07.1; J12.82 Abnormal vaginal bleeding N93.9 First trimester Z34.91 Hypothyroidism E03.9 Depression with anxiety F41.8 Asthma J45.909 Crohns disease K50.919 Digestive disease complication type: unspecified complication Gastrointestinal tract location: unspecified location (1) Crohns disease Digestive disease complication type: unspecified complication Gastrointestinal tract location: unspecified location Qualified Code(s): K50.919 - Crohn's disease, unspecified, with unspecified complications
--- NOTE | 2021-03-30 16:10 | Electrocardiogram Report ---
Test Reason : Blood Pressure : / mmHG Vent. Rate : 090 BPM Atrial Rate : 090 BPM P-R Int : 158 ms QRS Dur : 080 ms QT Int : 362 ms P-R-T Axes : 054 013 025 degrees QTc Int : 442 ms Normal sinus rhythm Normal ECG When compared with ECG of 24-MAR-2021 20:36, No significant change was found Confirmed by Ricky Doshi ([id number]) on 03/30/2021 4:10:09 PM Referred By: REFERRED SELF Confirmed By:Ricky Doshi
[2021-03-30] MEDS ORDERED: FAMOTIDINE 40 MG TABLET PO ONE (20:02)
[2021-03-30] MEDS ORDERED: CALCIUM CARBONATE 500 MG CHEWABLE TAB PO PRN (20:05)
[2021-03-31] MEDS: LEVOTHYROXINE SODIUM 200 MCG TABLET PO SCH (05:58)
[2021-03-31 06:16] LABS: Pregnancy Test, Serum Positive (Negative)
[2021-03-31] MEDS: MAGNESIUM OXIDE 400 MG TAB PO SCH (09:05)
[2021-03-31] MEDS: CHOLECALCIFEROL 5,000 UNITS 125 MCG TAB PO SCH (09:06)
[2021-03-31] MEDS: PRENATAL VITAMIN 1 TAB PO SCH (09:06)
[2021-03-31] MEDS: TOCOPHERYL, DL-ALPHA 400 UNITS 180 MG CAP PO SCH (09:06)
[2021-03-31] MEDS: dexAMETHasone 6 MG in SYRINGE 0 ML IV SCH (09:06)
[2021-03-31] MEDS: CHOLECALCIFEROL 1,000 UNITS 25 MCG TAB PO SCH (09:06)
[2021-03-31] MEDS: FLUDROCORTISONE ACETATE 0.1 MG TAB PO SCH (09:06)
[2021-03-31] MEDS: ENOXAPARIN 80 MG/0.8 ML SYR SQ SCH ×2 (09:07→20:33)
[2021-03-31] MEDS ORDERED: ACETAMINOPHEN 325 MG TAB PO PRN (12:51)
--- NOTE | 2021-03-31 16:51 | Hospitalist Progress Note ---
Date of Service March 31, 2021 Assessment & Plan (1) Pneumonia due to 2019-nCoV: Plan: Patient here with 10 days of Covid symptoms with productive cough, loss of taste and smell, shortness of breath, and diarrhea. She is not vaccinated against Covid due to fear of having allergic reaction given history of numerous allergies She remains with acute respiratory failure with hypoxia, requiring 2 L nasal cannula Pulse ox goes down to 82% on room air with walking 10 feet Chest x-ray shows multiple airspace opacities compatible with Covid pneumonia -Continued stay on telemetry unit on Covid precautions -Continue dexamethasone 6 mg IV once daily x10-day course -Continue supplemental O2 and keep pulse ox greater than 92%-wean off as tolerated -Does not meet criteria for Remdesivir as she was outside the window for benefit at the time of presentation -Follow CBC, CMP, CRP in the morning -Add on incentive spirometry and flutter valve -Add on albuterol nebulizers as needed shortness of breath or wheezing -Encouraged side positioning or prone positioning for sleeping (2) Hypoxia: Plan: As above (3) First trimester : Plan: at approximately 6 wga by LMP ultrasound done here shows gestational sac but no heartbeat-may be too early to tell, however she is having some light vaginal spotting hCG quant has gone down since 2 days ago which does point towards possible threatened -Continue to monitor -No need for OB consult at this point -If still in the hospital on 04/02, would repeat hCG quant to see if it is trending upward or downward Follow-up with OB as an outpatient Continue vitamin (4) Hypothyroidism: Plan: TSH on recent lab work is elevated at 11.2 and has been elevated for the last year Continue levothyroxine but would increase dose to 225 mcg daily especially in the setting of She has a history of gastric bypass and may not be absorbing this properly Continue follow-up with endocrinology as an outpatient In the setting of history of miscarriage and possible current threatened abor tion, needs improved control of hypothyroidism (5) Depression with anxiety: Plan: Is not currently on medication for this (6) Asthma: Plan: will monitor. Added albuterol nebs as needed (7) Crohns disease: Plan: Not currently on medication for this given long history of allergic reactions to medications She has chronic abdominal pain and diarrhea Follows with GI in [place] (8) Obesity: Plan: BMI 40.0 Has a history of gastric bypass -Needs encouragement for continued weight loss (9) Threatened : Plan: As noted above (10) History of Mynor-en-Y gastric bypass: Plan: Has had 200 pounds of weight loss since her gastric bypass Should be on proton pump inhibitor or H2 pravin especially in the setting of steroid use -Add on Pepcid at least while on dexamethasone to prevent development of anastomotic ulcers although PPI is generally thought to be safe in (11) Gastroparesis: Plan: Noted (12) Anemia: Plan: Microcytic anemia Most likely secondary to iron deficiency secondary to gastric bypass surgery Continue vitamin with iron supplementation Likely needs IV [id number] as an outpatient (13) Orthostasis: Plan: Continue home fludrocortisone Plan: DVT prophylaxis-Lovenox Disposition-continued stay on telemetry unit on Covid precautions Admission and Anticipated Discharge Date Admission Date: March 29, 2021 Subjective Patient reports shortness of breath with exertion such as walking across her room. She took her oxygen off to go to the toilet and when she returned, her pulse ox was 82% on room air. Advised her to remain on oxygen to go to the bathroom. She had some very light vaginal spotting today, no abdominal pains. She is feeling sad as she saw her hCG quant lab result on her web portal and is concerned that she is having a miscarriage. Remains on 2 L nasal cannula. Review of Systems Review of Systems: All systems reviewed & are unremarkable except as noted in HPI & below Physical Exam Constitutional: WD/WN, vitals as above + obese Eyes: PERRL, conjunctivae normal, anicteric sclerae ENMT: external ear and nose normal, oropharynx normal Neck: trachea midline, no thyromegaly Respiratory: normal respiratory effort and + cough; not tachypneic Auscultation: + crackles (Right lower lung field); no rhonchi and no wheezes Cardiovascular: RRR, no murmur, no edema Chest (Breasts): Chest: normal inspection of chest Gastrointestinal (Abdomen): normal bowel sounds, soft, nontender, no hepatosplenomegaly Musculoskeletal: Extremities: extremities normal to inspection; no cyanosis and no clubbing Skin: no rashes, warm and dry Neurologic: moves all extremities and awake; no focal motor deficits Psychiatric: A+Ox3, euthymic affect Lymphatic: no lymphedema Results & Data Results & Data ([facility]) Vital Signs (Past 12 Hours) Vital Signs Temp Pulse Pulse Resp BP Pulse Ox 03/31/21 15:02 37.0 C 69 17 94/55 L 97 03/31/21 13:00 83 03/31/21 12:15 37 C 72 20 122/72 92 03/31/21 09:05 76 18 91/64 L 92 Laboratory Results 03/31/21 03/31/21 03/31/21 Range/Units 04:52 04:52 04:52 C-Reactive Protein 1.43 H (0-0.29) mg/dl HCG, Qual Positive (Negative) HCG, Quant 50808 mIU/ml PG Care Time/CCT Total # of Minutes Spent Total Time Spent with Patient: Total time spent is greater than 50% in coordination of care (as documented) at patient's floor/unit and/or counseling patient: Coding Level of Care Code 34659 Subseq Hosp Care Lvl 3 Diagnoses Pneumonia due to 2019-nCoV U07.1; J12.82 First trimester Z34.91 Hypothyroidism E03.9 Depression with anxiety F41.8 Asthma J45.909 Crohns disease K50.919 Digestive disease complication type: unspecified complication Gastrointestinal tract location: unspecified location Obesity E66.9 Hypoxia R09.02 Threatened O20.0 History of Mynor-en-Y gastric bypass Z98.84 Gastroparesis K31.84 Anemia D64.9 Anemia type: unspecified type Orthostasis I95.1 (1) Crohns disease Digestive disease complication type: unspecified complication Gastrointestinal tract location: unspecified location Qualified Code(s): K50.919 - Crohn's disease, unspecified, with unspecified complications (2) Anemia Anemia type: unspecified type Qualified Code(s): D64.9 - Anemia, unspecified
[2021-03-31] MEDS ORDERED: ALBUTEROL 0.083% NEBU SOLN 3 ML VIAL NEB PRN (23:33)
[2021-04-01] MEDS ORDERED: LEVOTHYROXINE SODIUM 75 MCG TABLET PO SCH (06:30)
[2021-04-01 06:38] LABS: Hematocrit (blood only) 33.2 % (37-47); Hemoglobin 10.3 g/dL (12.0-16.0); Immature Granulocytes # (auto) 0.01 K/uL (0.00-0.02); Immature Granulocytes % (auto) 0.3 %; Lymphocytes # (auto) 1.02 K/uL (1.2-3.4); Lymphocytes % (auto) 35.4 %; Mean Corpuscular Hemoglobin 24.5 pg (25-34); Mean Corpuscular Volume 78.9 fL (80-100); Monocytes # (auto) 0.36 K/uL (0.11-0.59); Monocytes % (auto) 12.5 %; Neutrophils # (auto) 1.49 K/uL (1.4-6.5); Neutrophils % (auto) 51.8 %; Platelet Count 184 K/uL (130-400); RDW Coefficient of Variation 15.3 % (11.5-14.5); RDW Standard Deviation 44.4 fL (36.4-46.3); Red Blood Count 4.21 M/uL (4.2-5.4); White Blood Count 2.88 K/uL (4.8-10.8)
[2021-04-01 07:09] LABS: Albumin Level 2.5 gm/dl (3.4-5.0); BUN Creatinine Ratio 13.5 (10-20); Calcium 8.3 mg/dl (8.5-10.1); Creatinine Clr Calc Pharmacy 143.1 ml/min; Est GFR (African American) 109.2 ml/min; Est GFR (Non-African American) 94.2 ml/min; Potassium 3.7 mmol/L (3.5-5.1)
[2021-04-01 07:12] LABS: Albumin Globulin Ratio 0.6 (0.9-2); Bilirubin,Total 0.2 mg/dl (0.2-1); C Reactive Protein 0.78 mg/dl (0-0.29); Globulin 3.9 gm/dl (2.5-4.0); Total Protein 6.4 gm/dl (6.4-8.2)
[2021-04-01] MEDS: CHOLECALCIFEROL 1,000 UNITS 25 MCG TAB PO SCH (08:45)
[2021-04-01] MEDS: PRENATAL VITAMIN 1 TAB PO SCH (08:45)
[2021-04-01] MEDS: ENOXAPARIN 80 MG/0.8 ML SYR SQ SCH (08:46)
[2021-04-01] MEDS: FLUDROCORTISONE ACETATE 0.1 MG TAB PO SCH (08:46)
[2021-04-01] MEDS: TOCOPHERYL, DL-ALPHA 400 UNITS 180 MG CAP PO SCH (08:46)
[2021-04-01] MEDS: CHOLECALCIFEROL 5,000 UNITS 125 MCG TAB PO SCH (08:46)
[2021-04-01] MEDS: dexAMETHasone 6 MG in SYRINGE 0 ML IV SCH (08:48)
[2021-04-01] MEDS: MAGNESIUM OXIDE 400 MG TAB PO SCH (08:48)
[2021-04-01] MEDS ORDERED: FAMOTIDINE 20 MG TAB PO SCH (09:00)
[2021-04-03] MEDS ORDERED: ERGOCALCIFEROL 50,000 UNITS 1250 MCG CAP PO SCH (09:00)
--- NOTE | 2021-04-06 16:36 | Discharge Summary ---
Date of Service April 01, 2021 Admission HPI Per Admitting Provider This is a pleasant (first trimester) 35 yo female who presents to the hospital with COVID 19 symptoms which began on the fifth of this month. This includes productive cough, loss of taste and smell, and SOB. She also notes diarrhea. Her SOB has worsened over the past few days. Principal Diagnosis COVID 19 Pneumonia Discharge Exam Constitutional:� WD/WN, vitals as above� + obese Eyes:� PERRL, conjunctivae normal, anicteric sclerae ENMT:� external ear and nose normal, oropharynx normal Neck:� trachea midline, no thyromegaly Respiratory:� normal respiratory effort and + cough; not tachypneic� Auscultation: + crackles (Right lower lung field); no rhonchi and no wheezes Cardiovascular:� RRR, no murmur, no edema Chest (Breasts):� Chest: normal inspection of chest Gastrointestinal (Abdomen):� normal bowel sounds, soft, nontender, no hepatosplenomegaly Musculoskeletal:� Extremities: extremities normal to inspection; no cyanosis and no clubbing Skin:� no rashes, warm and dry Neurologic:� moves all extremities and awake; no focal motor deficits Psychiatric:� A+Ox3, euthymic affect Lymphatic:� no lymphedema Discharge Data Allergies Allergy/AdvReac Type Severity Reaction Status Date / Time bee venom protein (honey bee) Allergy Intermediate SWELLING Verified 04/06/21 12:27 AND SHORTNESS OF BREATH certolizumab pegol Allergy Intermediate swelling Verified 04/06/21 12:27 baseball sized swelling Fish Containing Products Allergy Intermediate HIVES, Verified 04/06/21 12:27 ITCHING, SLIGHT DIFFICULTY BREATHING fish oil Allergy Intermediate HIVES, Verified 04/06/21 12:27 VOMITING infliximab Allergy Intermediate migraines,itchiness, Verified 04/06/21 12:27 hair fallout shellfish derived Allergy Intermediate HIVES, Verified 04/06/21 12:27 ITCHING, SLIGH DIFFICULTY BREATHING adalimumab Allergy Mild SWELLING Verified 04/06/21 12:27 AT INJECTION SITE sumatriptan [From Imitrex] Allergy Unknown messed Verified 04/06/21 12:27 with heart rate duloxetine AdvReac Intermediate depression Verified 04/06/21 12:27 metronidazole AdvReac Intermediate diarrhea, Verified 04/06/21 12:27 abdominal pain CONTRAST DYE Allergy Severe hives, Uncoded 03/21/21 02:28 throat swelled Consultations 03/29/21 14:24 ED Decision to Admit Stat Ordered Studies 03/29/21 US OB transvaginal Routine 03/29/21 14:16 US OB <= 14 weeks fetus Stat Hospital Course (1) Pneumonia due to 2019-nCoV: Patient here with 10 days of Covid symptoms with productive cough, loss of taste and smell, shortness of breath, and diarrhea. She is not vaccinated against Covid due to fear of having allergic reaction given history of numerous allergies She remains with acute respiratory failure with hypoxia, requiring 2 L nasal cannula Pulse ox goes down to 82% on room air with walking 10 feet Chest x-ray shows multiple airspace opacities compatible with Covid pneumonia -Continued stay on telemetry unit on Covid precautions -Continue dexamethasone 6 mg IV once daily x10-day course -Continue supplemental O2 and keep pulse ox greater than 92%-wean off as tolerated -Does not meet criteria for Remdesivir as she was outside the window for benefit at the time of presentation -Follow CBC, CMP, CRP in the morning -Add on incentive spirometry and flutter valve -Add on albuterol nebulizers as needed shortness of breath or wheezing -Encouraged side positioning or prone positioning for sleeping On discharge: Patient will finish course of dexamethasone. 2 steps completed. will need 2 L at rest and 3 L on ambulation. (2) Hypoxia: As above (3) First trimester : at approximately 6 wga by LMP ultrasound done here shows gestational sac but no heartbeat-may be too early to tell, however she is having some light vaginal spotting hCG quant has gone down since 2 days ago which does point towards possible threatened -Continue to monitor -No need for OB consult at this point -If still in the hospital on 04/02, would repeat hCG quant to see if it is trending upward or downward Follow-up with OB as an outpatient Continue vitamin (4) Hypothyroidism: TSH on recent lab work is elevated at 11.2 and has been elevated for the last year Continue levothyroxine but would increase dose to 225 mcg daily especially in the setting of She has a history of gastric bypass and may not be absorbing this properly Continue follow-up with endocrinology as an outpatient In the setting of history of miscarriage and possible current threatened , needs improved control of hypothyroidism (5) Depression with anxiety: Is not currently on medication for this (6) Asthma: will monitor. Added albuterol nebs as needed (7) Crohns disease: Not currently on medication for this given long history of allergic reactions to medications She has chronic abdominal pain and diarrhea Follows with GI in [place] (8) Obesity: BMI 40.0 Has a history of gastric bypass -Needs encouragement for continued weight loss (9) Threatened : As noted above (10) History of Mynor-en-Y gastric bypass: Has had 200 pounds of weight loss since her gastric bypass Should be on proton pump inhibitor or H2 pravin especially in the setting of steroid use -Add on Pepcid at least while on dexamethasone to prevent development of dieter stomotic ulcers although PPI is generally thought to be safe in (11) Gastroparesis: Noted (12) Anemia: Microcytic anemia Most likely secondary to iron deficiency secondary to gastric bypass surgery Continue vitamin with iron supplementation Likely needs IV [id number] as an outpatient (13) Orthostasis: Continue home fludrocortisone DVT prophylaxis-Lovenox Disposition-continued stay on telemetry unit on Covid precautions Total Time Total Time Spent Total Time Spent (In Minutes): 32 Discharge Plan Discharge Items Patient Disposition: Home - Self-Care Reason For Visit: COVID-19 PNEUMONIA Discharge Diagnosis: Covid 19 Pneumonia Activity: Resume your previous activity Non-emergency contact: Primary Care Provider Call non-emergency contact if: you have any medication questions Follow-up/Referrals: Nae Osborn MD [Primary Care Provider] - 04/05/21 10:00 am (this is a TELEHEALTH APT) Diet: Regular Addtl Attending Provider Instructions: Followup with ENVIRONMENTAL FIELD PROFESSIONAL for a possible repeat Ultrasound and/or clinical visit in their office Recommend quaratnining at least for 1 week. People can usually transmit the virus during the first 10 days after having symptoms. May extend to 14 days. Please wear a mask when in public. You will require home oxygen: 2 liters continuosly and 3 liters when you walk. Will recommend you discuss with your Primary Care Doctor if you require a CPAP. Pending Studies at Discharge: No Stand-Alone Forms: [employer], Work/School Release, Smoking Cessation Medications and DC Order Prescriptions: New dexamethasone 6 mg tablet 6 mg PO DAILY Qty: 6 RF: 0 Continued cholecalciferol (vitamin D3) 125 mcg (5,000 unit) tablet 7,000 units PO DAILY RF: 0 PNV-Select 27-1 mg tablet 1 tab PO DAILY Qty: 90 RF: 3 cyanocobalamin (vitamin B-12) 1,000 mcg/mL solution See Rx Instructions .ROUTE .COMPLEX Qty: 10 RF: 3 levothyroxine 200 mcg tablet See Rx Instructions .ROUTE .COMPLEX Qty: 90 RF: 3 magnesium oxide 240 mg magnesium powder in packet 200 mg PO DAILY RF: 0 epinephrine [EpiPen] 0.3 mg/0.3 mL auto-injector 0.3 mg IM DIRECTED PRN (Reason: Allergic Reaction) Qty: 1 RF: 1 ergocalciferol (vitamin D2) [Vitamin D2] 1,250 mcg (50,000 unit) Capsule 1,250 mcg PO WK RF: 0 vitamin E 400 unit Capsule 400 unit PO DAILY RF: 0 Cequa 0.09 % dropperette 1 drp OPB BID RF: 0 albuterol sulfate 90 mcg/actuation HFA aerosol inhaler 2 puff inhalation Q6 PRN (Reason: Shortness Of Breath) RF: 0 fludrocortisone 0.1 mg tablet 0.1 mg PO DAILY RF: 0 No Action levothyroxine 25 mcg tablet 25 mcg PO DAILY Qty: 30 RF: 2 Discharge Orders: Discharge Order (Routine); Ordered 04/01/21 Ordered By: Daryn Ardon Admission Data Admit Date/Time: 03/29/21 17:22 Attending Provider: Daryn Ardon Admit Provider: Daryn Ardon Primary Care Provider: Nae Osborn Other Providers: Daryn Ardon Other Interventions: Discharge Summary Assessment (RN) Last Done: 04/01/21 14:35 Coding Level of Care Code D/C DAY MANAGEMENT >30 MINS Diagnoses Pneumonia due to 2019-nCoV U07.1; J12.82 Hypoxia R09.02 First trimester Z34.91 Hypothyroidism E03.9 Depression with anxiety F41.8 Asthma J45.909 Crohns disease K50.919 Digestive disease complication type: unspecified complication Gastrointestinal tract location: unspecified location Obesity E66.9 Threatened O20.0 History of Mynor-en-Y gastric bypass Z98.84 Gastroparesis K31.84 Anemia D64.9 Anemia type: unspecified type Orthostasis I95.1
== END 2021-04-01 15:16 | disposition home or self-care (01) | DRG 831 ==
LOC: ED 12:00 → SUATTDRO 17:22 → EDINP 17:22 → 2E 03-31 12:02
DX: K50.90 Crohn's disease, unspecified, without complications; O20.0 Threatened abortion; O98.511 Other viral diseases complicating pregnancy, first trimester; K31.84 Gastroparesis; E03.9 Hypothyroidism, unspecified; Z3A.01 Less than 8 weeks gestation of pregnancy; I95.1 Orthostatic hypotension; O99.341 Other mental disorders complicating pregnancy, first trimester; O99.211 Obesity complicating pregnancy, first trimester; J96.01 Acute respiratory failure with hypoxia; O99.611 Diseases of the digestive system complicating pregnancy, first trimester; J45.909 Unspecified asthma, uncomplicated; Z91.041 Radiographic dye allergy status; U07.1 COVID-19; O99.011 Anemia complicating pregnancy, first trimester; O99.281 Endocrine, nutritional and metabolic diseases complicating pregnancy, first trimester; J12.82 Pneumonia due to coronavirus disease 2019; Z88.8 Allergy status to other drugs, medicaments and biological substances; E66.01 Morbid (severe) obesity due to excess calories; F32.A Depression, unspecified; O99.891 Other specified diseases and conditions complicating pregnancy; O99.511 Diseases of the respiratory system complicating pregnancy, first trimester; D50.9 Iron deficiency anemia, unspecified